=== PATIENT | male | born 1970 | race Caucasian/White ===

== ENCOUNTER 2018-04-20 22:40 | Inpatient (IN) | payer OTHER ==
--- NOTE | 2018-04-20 23:41 | PDOC ---
History of Present Illness - General Chief Complaint: Wound Stated Complaint: EDEMA Time Seen by Provider: 04/20/18 23:41 History Source: Patient - History of Present Illness Initial Comments: 04/20/18 23:43 47M with PMH of diabetes who presents to the ER with a chief complaint of worsening redness and swelling of Left foot.. Patient was recently seen in the ED on 04/17/18, 3 days ago, for right foot swelling with redness. He was worked up with labs and US duplex which were all negative and was discharged with levaquin 750mg po daily for 5 days. He denies any trauma to the area. He endorses fevers and chills. He endorses occasional nausea since the foot started bothering him. He denies vomiting chest pain shortness of breath or urinary symptoms. He endorses constipation. He denies having a foot infection. Blood sugars are usually 150s at home past few days have been higher this morning was 185 per patient. Past History - Travel Traveled outside of the country in the last 30 days: No Close contact w/someone who was outside of country & ill: No - Past Medical History Allergies/Adverse Reactions: Allergies Allergy/AdvReac Type Severity Reaction Status Date / Time No Known Allergies Allergy Verified 04/20/18 22:56 Home Medications: Ambulatory Orders Levofloxacin [Levaquin] 750 mg PO DAILY #5 tablet 04/17/18 Metformin HCl [Metformin HCl ER] 500 mg PO DAILY 04/17/18 Sitagliptin Phosphate [Januvia -] 100 mg PO DAILY@0700 04/17/18 COPD: No Diabetes: Yes HTN: Yes (off medications) - Suicide/Smoking/Psychosocial Hx Smoking History: Never smoked Have you smoked in the past 12 months: No Information on smoking cessation initiated: No Hx Alcohol Use: No Drug/Substance Use Hx: No Substance Use Type: None Review of Systems - Review of Systems Able to Perform ROS?: Yes Is the patient limited Faroese proficient: No Constitutional: Yes: Chills, Fever HEENTM: No: Symptoms Reported, See HPI, Eye Pain, Blurred Vision, Tearing, Recent change in vision, Double Vision, Cataracts, Ear Pain, Ocular Prothesis, Ear Discharge, Nose Pain, Nose Congestion, Tinnitus, Nose Bleeding, Hearing Loss , Throat Pain, Throat Swelling, Mouth Pain, Dental Problems, Difficulty Swallowing, Mouth Swelling, Other Respiratory: No: Symptoms reported, See HPI, Cough, Orthopnea, Shortness of Breath, SOB with Exertion, SOB at Rest, Stridor, Wheezing, Productive cough, Hemoptysis, Other Cardiac (ROS): No: Symptoms Reported, See HPI, Chest Pain, Edema, Irregular Heart Rate, Lightheadedness, Palpitations, Syncope, Chest Tightness, Other ABD/GI: Yes: Constipated. No: Symptoms Reported, See HPI, Abdominal Distended, Abd. Pain w/ defecation, Blood Streaked Bowels, Diarrhea, Difficulty Swallowing , Nausea, Poor Appetite, Poor Fluid Intake, Rectal Bleeding, Vomiting, Indigestion, Abdominal cramping, Tarry Stools, Other : No: Symptoms Reported, See HPI, Burning, Dysuria, Discharge, Frequency, Flank Pain, Hematuria, Incontinence, Pain, Urgency, Testicular Mass, Testicular Swelling, Lesions, Testicular Pain, Other Musculoskeletal: No: Symptoms Reported, See HPI, Back Pain, Gout, Joint Pain, Joint Swelling, Muscle Pain, Muscle Weakness, Neck Pain, Joint Stiffness, Other Neurological: No: Symptoms reported, See HPI, Headache, Numbness, Paresthesia, Pre-Existing Deficit, Seizure, Tingling, Tremors, Weakness, Unsteady Gait, Ataxia, Dizziness, Other Psychiatric: No: Anxiety, Depression, Frequent Crying, Stressors, Sleep Pattern Change, Emotional Problems, Mood Swings, Change in Appetite, Other Endocrine: No: Symptoms Reported, See HPI, Excessive Sweating, Flushing, Intolerance to Cold, Intolerance to Heat, Increased Hunger, Increased Thirst, Increased Urine, Unexplained Weight Gain, Unexplained Weight Loss, Change in Weight, Other Hematologic/Lymphatic: No: Symptoms Reported, See HPI, Anemia, Blood Clots, Easy Bleeding, Easy Bruising, Bleeding Diathesis, Lymph Node Abnormalities, Swollen Glands, Other *Physical Exam - Vital Signs Last Vital Signs Temp Pulse Resp BP Pulse Ox 100.7 F H 119 H 18 152/75 100 04/20/18 22:56 04/20/18 22:56 04/20/18 22:56 04/20/18 22:56 04/20/18 22:56 - Physical Exam General Appearance: Yes: Nourished, Appropriately Dressed. No: Apparent Distress HEENT: positive: EOMI, LUZ Neck: positive: Trachea midline, Supple Respiratory/Chest: positive: Lungs Clear, Normal Breath Sounds. negative: Chest Tender, Respiratory Distress, Accessory Muscle Use Cardiovascular: positive: Regular Rhythm, S1, S2, Tachycardia. negative: Edema , JVD, Murmur Gastrointestinal/Abdominal: positive: Soft. negative: Tender Musculoskeletal: negative: CVA Tenderness Extremity: positive: Normal Capillary Refill, Other (angry appearing redness of the plantar and dorsal part of the foot with warmth ans swelling. Blistering on the forsal part of the left foot with some blotching of dark discoloration. In the second webbed space there appears to be a break in the skin where the streking redness to the plantar and dorsal part of the foot. Pulses difficult to palpate due to swelling.) Integumentary: positive: Dry, Warm Neurologic: positive: fluid power mechanic II-XII NML intact, Fully Oriented, Alert, Normal Mood/ Affect, Motor Strength 12/29 ED Treatment Course - LABORATORY CBC & Chemistry Diagram: 04/20/18 23:59 04/20/18 23:59 Medical Decision Making - Medical Decision Making 04/21/18 00:10 47M with history of HTN and DM presents to the ED with cellulitis of the left foot. Patient has a break in the skin of the second webbed space which is likely the nidus for infection given history of diabetes and likely poor blood supply to the foot resulting in poor healing. Will do septic work up/order set as patient is septic given tachycardic and febrile with a source of infection. CBC CMP MG Coags Cardiac profile Lactic acid ESR CRP UA UCx BCx EKG CXR Foot Xray Vanco/Zosyn reassess Admit 04/21/18 01:11 Labs noted Elevated ABC count lactic acid 1.3 WNL Hyperglycemic elevated CRP Will admit for cellulitis and sepsis 04/21/18 02:13 Patient signed out to Dr. Ingram who has assumed care of the patient and will follow up all ancillary studies. *DC/Admit/Observation/Transfer Diagnosis at time of Disposition: Cellulitis Qualifiers: Site of cellulitis: extremity Site of cellulitis of extremity: lower extremity Laterality: left Qualified Code(s): L03.116 - Cellulitis of left lower limb - Discharge Dispostion Condition at time of disposition: Guarded Decision to Admit order: Yes - Referrals Referrals: Jez Armendariz MD, MD [Primary Care Provider] - - Patient Instructions - Post Discharge Activity
[2018-04-20] MEDS ORDERED: SODIUM CHLORIDE 1,000 ML IV STA ×2 (23:52)
[2018-04-20] MEDS ORDERED: morphine SULFATE 4 MG/ML VIAL IVPUSH ONE (23:53)
[2018-04-20] MEDS ORDERED: FAMOTIDINE 20 MG/50 ML IVPB 20 MG/50 ML MG IVPB ONE (23:54)
[2018-04-21] MEDS ORDERED: FAMOTIDINE 20 MG/50 ML IVPB 20 MG/50 ML MG IVPB ONE (00:01)
[2018-04-21] MEDS ORDERED: morphine SULFATE 4 MG/ML VIAL ONE (00:01)
[2018-04-21 00:13] LABS: BASO % 0.6 % (0-2.0); EOS % 0.9 % (0-4.5); HEMATOCRIT 41.8 % (35.4-49); HEMOGLOBIN 14.2 GM/dL (11.7-16.9); LYMPH % 5.1 % (8-40); MCH 27.6 pg (25.7-33.7); MCHC 33.9 g/dl (32.0-35.9); MEAN CELL VOLUME 81.5 fl (80-96); MEAN PLT VOLUME 8.1 fl (7.5-11.1); MONO % 6.8 % (3.8-10.2); NEUT % 86.6 % (42.8-82.8); PLATELET COUNT 436 K/MM3 (134-434); RBC 5.12 M/mm3 (4.00-5.60); RDW 12.9 % (11.9-15.9); WHITE BLOOD COUNT 16.5 K/mm3 (4.0-10.0)
[2018-04-21] MEDS ORDERED: ACETAMINOPHEN 1000 MG/100 ML VIAL (NON FORMULARY) IVPB ONE (00:16)
[2018-04-21] MEDS ORDERED: VANCOMYCIN 1,500 MG in DEXTROSE 5%-WATER - 500 ML IVPB ONE ×2 (00:17→14:00)
[2018-04-21] MEDS ORDERED: PIPERACILLIN/TAZOB 3.375 GM 3.375 GM in DEXTROSE 5%-WATER - 50 ML IVPB ONE ×2 (00:18→09:00)
--- NOTE | 2018-04-21 00:21 | PDOC ---
Attending Attestation - Resident Resident Name: Wisam Serra - ED Attending Attestation I have performed the following: I have examined & evaluated the patient, The case was reviewed & discussed with the resident, I agree w/resident's findings & plan, Exceptions are as noted - HPI HPI: 04/21/18 00:19 Agree with HPI - Physicial Exam PE: 04/21/18 00:20 Agree with PE - Medical Decision Making 04/21/18 00:19 Diabetic foot infection. Failed outpatient antibiotics. Febrile tachycardic. Sepsis protocol initiated we'll start on vancomycin and Zosyn and admitted hospital for further management Heart Score/ECG Review - ECG Impressions Comment:: 04/21/18 00:20 EKG performed at 1212. Demonstrates sinus tachycardia 105. GA interval 142. QRS 88. QTC 420. No ST elevations. No T-wave inversions. Interpreted by me.
[2018-04-21 00:26] LABS: INR 1.4 (0.83-1.09); PROTHROMBIN TIME (PATIENT) 15.8 SEC (9.7-13.0)
[2018-04-21 00:29] LABS: ACTIVATED PTT 37.9 SECONDS (25.2-36.5)
[2018-04-21 00:35] LABS: ALBUMIN 3.1 g/dl (3.4-5.0); ANION GAP 9 MMOL/L (8-16); BILIRUBIN,TOTAL 1.4 mg/dL (0.2-1.0); BLOOD UREA NITROGEN 12 mg/dL (7-18); CALCIUM 8.9 mg/dL (8.5-10.1); CHLORIDE 95 mmol/L (98-107); CO2 31 mmol/L (21-32); CREATININE 0.7 mg/dL (0.7-1.3); GLUCOSE,RANDOM 236 mg/dL (74-106); POTASSIUM 3.9 mmol/L (3.5-5.1); SGOT/AST 17 U/L (15-37); SGPT/ALT 23 U/L (12-78); SODIUM 135 mmol/L (136-145); TOT PROT 7.5 g/dl (6.4-8.2)
[2018-04-21 00:36] LABS: ALK PHOS 240 U/L (45-117)
[2018-04-21] MEDS ORDERED: ACETAMINOPHEN INJECTION 100 ML IVPB ONE (00:44)
[2018-04-21] MEDS ORDERED: PIPERACILLIN/TAZOB 3.375 GM 3.375 GM/50 ML BAG IVPB ONE (00:44)
--- NOTE | 2018-04-21 02:02 | HP ---
CHIEF COMPLAINT: PCP: Dr. Armendariz, covered by Dr. Chang HISTORY OF PRESENT ILLNESS: 47 yr old man with NIDDM and HTN presented to ED with worsening left foot ulcer and erythema. Initially began as erythema with intact skin on Sunday(04/14), a/w with sharp pain from dorsum at ulcer site to toes intermittently, worse when weight bearing, a/w swelling. On Sunday he had 2 episodes of nonbloody watery emesis and increasing erythema in the left foot. he was evaluated in [facility] and discharged with levaquin po daily, he took it sun// evenings. Blisters developed and today they started to break with worsening erythema and swelling. denies fevers, chest pain, palpations, diarrhea, constipation. sunday morning he developed discomfort in the epigastrium, as if something was stuck there and he couldn't swallow it down, nonradiating, improved with sitting up. 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 ER course was notable for: (1) vanc + zosyn, cxy,, bld cx, foot xry (2) (3) Recent Travel:none PAST MEDICAL HISTORY: DM, diagnosed 1 yr ago. routinely follows with optho, no diabetic retinapothy PAST SURGICAL HISTORY: denies Social History: Smoking:denies Alcohol:denies Drugs: denies Family History: father with hx of stroke in his 70's Allergies No Known Allergies Allergy (Verified 04/20/18 22:56) HOME MEDICATIONS: Home Medications Medication Instructions Recorded Levofloxacin [Levaquin] 750 mg PO DAILY #5 tablet 04/17/18 Metformin HCl [Metformin HCl ER] 500 mg PO DAILY 04/17/18 Sitagliptin Phosphate [Januvia -] 100 mg PO DAILY@0700 04/17/18 REVIEW OF SYSTEMS CONSTITUTIONAL: Absent: fever, chills, diaphoresis, generalized weakness, malaise, loss of appetite, weight change HEENT: Present: difficulty swallowing, Absent: rhinorrhea, nasal congestion, throat pain, throat swelling, mouth swelling, ear pain, eye pain, visual changes CARDIOVASCULAR: Absent: chest pain, syncope, palpitations, irregular heart rate, lightheadedness , peripheral edema RESPIRATORY: Absent: cough, shortness of breath, dyspnea with exertion, orthopnea, wheezing, stridor, hemoptysis GASTROINTESTINAL: Present: vomiting, Absent: abdominal pain, abdominal distension, nausea, diarrhea, constipation, melena, hematochezia GENITOURINARY: Absent: dysuria, frequency, urgency, hesitancy, hematuria, flank pain MUSCULOSKELETAL: Present: joint swelling; left ankle Absent: myalgia, arthralgia, back pain, neck pain SKIN: Absent: rash, itching, pallor HEMATOLOGIC/IMMUNOLOGIC: Absent: easy bleeding, easy bruising, lymphadenopathy, frequent infections ENDOCRINE: Absent: unexplained weight gain, unexplained weight loss, heat intolerance, cold intolerance NEUROLOGIC: Absent: headache, focal weakness or paresthesias, dizziness, unsteady gait, seizure, mental status changes PHYSICAL EXAMINATION Vital Signs - 24 hr 04/20/18 04/21/18 22:56 00:57 Temperature 100.7 F H 100.6 F H Pulse Rate 119 H Respiratory 18 Rate Blood Pressure 152/75 O2 Sat by Pulse 100 Oximetry (%) GENERAL: Awake, alert, and fully oriented, in no acute distress. HEAD: Normal with no signs of trauma. EYES: Pupils equal, round and reactive to light, extraocular movements intact, sclera anicteric, conjunctiva clear. No lid lag. EARS, NOSE, THROAT: oropharynx clear without exudates. Moist mucous membranes. NECK: Normal range of motion, supple without lymphadenopathy, JVD, or masses. LUNGS: Breath sounds equal, clear to auscultation bilaterally. No wheezes, and no crackles. No accessory muscle use. HEART: Regular rate and rhythm, normal S1 and S2 without murmur, rub or gallop. ABDOMEN: Soft, nontender, not distended, normoactive bowel sounds, no guarding, no rebound, no masses. No hepatomegaly or splenomegaly. MUSCULOSKELETAL: Normal range of motion at all joints. No bony deformities or tenderness. No CVA tenderness. UPPER EXTREMITIES: 2+ radial pulses, warm, well-perfused. No cyanosis. No clubbing. No peripheral edema. LOWER EXTREMITIES: 2+ DP pulses b/p, 2+ TP pulses b/l, warm, well-perfused. No calf tenderness. right leg wnl LEFT FOOT: erythema from anterior of foot extending from metatarsal joints to 2cm below ankle mostly on lateral side. between 2nd and 3rd digit is a laceration without any discharge. dorsum of foot with 2-3 serous vesicles and 2- 3 pus filled vesicles surrounded by deep purple erythema. one vesicle open with serosngunous fluid. 1st digit planter surface with callus. sensation muted in foot at planter surface and at lesion compared to right foot. NEUROLOGICAL: Cranial nerves II-XII intact. Normal speech. 5/5 in all upper ext muscle grps with extension and flexion, le right hip/knee and ankle 5/5 with extension and flexion. right hip/knee and ankle with 5/5 flexion and extension. Laboratory Results - last 24 hr 04/20/18 04/20/18 04/20/18 23:59 23:59 23:59 WBC 16.5 H RBC 5.12 Hgb 14.2 Hct 41.8 MCV 81.5 MCH 27.6 MCHC 33.9 RDW 12.9 Plt Count 436 H D MPV 8.1 D Absolute Neuts (auto) 14.3 H Neutrophils % 86.6 H Lymphocytes % 5.1 L Monocytes % 6.8 Eosinophils % 0.9 D Basophils % 0.6 D Nucleated RBC % 0 ESR PT with INR 15.80 H INR 1.40 H PTT (Actin FS) 37.9 H Sodium 135 L Potassium 3.9 Chloride 95 L Carbon Dioxide 31 Anion Gap 9 BUN 12 Creatinine 0.7 Creat Clearance w eGFR > 60 Random Glucose 236 H D Lactic Acid Calcium 8.9 Total Bilirubin 1.4 H AST 17 ALT 23 Alkaline Phosphatase 240 H D C-Reactive Protein Total Protein 7.5 Albumin 3.1 L 04/20/18 04/21/18 04/21/18 23:59 00:16 00:16 WBC RBC Hgb Hct MCV MCH MCHC RDW Plt Count MPV Absolute Neuts (auto) Neutrophils % Lymphocytes % Monocytes % Eosinophils % Basophils % Nucleated RBC % ESR 80 H PT with INR INR PTT (Actin FS) Sodium Potassium Chloride Carbon Dioxide Anion Gap BUN Creatinine Creat Clearance w eGFR Random Glucose Lactic Acid 1.3 Calcium Total Bilirubin AST ALT Alkaline Phosphatase C-Reactive Protein 25.9 H Total Protein Albumin ASSESSMENT/PLAN: 47 yr old man with NIDDM and HTN admitted for sepsis due to left foot ulcer #Sepsis due to Left foot ulcer, check u/a and chest xray to r.o any other source - bld cx pending, ESR and CRP elevated, await foot xray, but may need MRI to r/ o osteo if xray equivocal - given pus at site, likely staph, broad spec coverage for DM pt, vanc 1500 IVPB BID + zosyn q8hr - nares MRSA screen - consult ID: Dr. conteh - consult: Dr. skelton for podiatry for surgical evaluation - repeat labs to trend - recent duplex neg on Sunday for dvt, however given worsening swelling, will repeat to r/o DVT - pain control as requested, well controlled with IV tylenol in the ED - IVF #DM - NISS and BGM ACHS - A1c - discussed diabetic diet with patient, ordered RD consult for further teaching - hold home metformin and sitagliptin - lipid panel for assess for need for statin #HTN - pt is unsure of his medications, medications will need to be reconciled in the morning DVT: heparin TID DIet: diabetic, low Na diet Visit type - Emergency Visit Emergency Visit: Yes ED Registration Date: 04/21/18 Care time: The patient presented to the Emergency Department on the above date and was hospitalized for further evaluation of their emergent condition. - New Patient This patient is new to me today: Yes Date on this admission: 04/21/18 - Critical Care Critical Care patient: No Hospitalist Screening - Colonoscopy Questionnaire Colonoscopy Questionnaire: Colonoscopy Questionnaire - Patient: 50 - 75 years old and never had a screening colonoscopy: Unknown History of colon or rectal polyps, or CA: Unknown History of IBD, Crohn's disease or UC: Unknown History of abdominal radiation therapy as a child: Unknown - Relative: 1 with colon or rectal CA, or polyps at age 60 or younger: Unknown Colon or rectal CA diagnosed at age 45 or younger: Unknown Multiple relatives with colon or rectal CA: Unknown - Outcome: Screening Result: Negative Screen
--- NOTE | 2018-04-21 04:49 | PN ---
Teaching Attending Note Name of Resident: Marian Ingram ATTENDING PHYSICIAN STATEMENT I saw and evaluated the patient. Chart, data, imaging reviewed. I reviewed the resident's note and discussed the case with the resident. I agree with the resident's findings and plan as documented. SUBJECTIVE: 47M with PMH of DM diagnosed 1.5years ago returned to hospital with worsening left foot infection after failing 5 days of levaquin Rx. Reported compliance with abx. Lower ext duplex at that time was neg. Denied any trauma to foot. Patient has not had any previous foot infections. He reports subjective fevers and chills. OBJECTIVE: Last Vital Signs Temp Pulse Resp BP Pulse Ox 98.7 F 86 18 135/70 98 49 04/21/18 03:45 04/21/18 03:45 04/21/18 03:45 04/21/18 03:45 04/21/18 02:26 general- nontoxic appearing, aax3 heent- at, nc, moist mucosa neck -supple cv -s1+s2+ rrr chest clear abd- soft, nt, bs+ ext- left foot- dorsum of foot erythematous, warm, with pustules, sensation grossly intact, DP 2+ b/l Abnormal Lab Results 04/20/18 04/20/18 04/20/18 23:59 23:59 23:59 WBC 16.5 H Plt Count 436 H D Absolute Neuts (auto) 14.3 H Neutrophils % 86.6 H Lymphocytes % 5.1 L ESR PT with INR 15.80 H INR 1.40 H PTT (Actin FS) 37.9 H Sodium 135 L Chloride 95 L Random Glucose 236 H D Total Bilirubin 1.4 H Alkaline Phosphatase 240 H D C-Reactive Protein Albumin 3.1 L 04/21/18 04/21/18 00:16 00:16 WBC Plt Count Absolute Neuts (auto) Neutrophils % Lymphocytes % ESR 80 H PT with INR INR PTT (Actin FS) Sodium Chloride Random Glucose Total Bilirubin Alkaline Phosphatase C-Reactive Protein 25.9 H Albumin EKG reviewed- sinus tachycardia ASSESSMENT AND PLAN: 47yo man with sepsis secondary to cellulitis of left foot after failing outpatient levaquin therapy. Pustules on foot suggestive of staph. Lactate was WNL. Should r/o underlying OM. -admit to med/surg -IV fluid hydration -blood cultures x2 -zosyn IV -vancomycin IV -ID consult -podiatry consult -chandu PCR MRSA screen -lower ext duplex to r/o dvt -left foot Xray -MRI if foot xray is inconclusive -left elevation -morphine prn if pain #DM -strict glucose control -insulin sliding scale -basline glargine insulin -a1c -lipid panel -diabetic diet -optho and podiatry referral as outpatient -urine microalbumin # DVT ppx -heparin sc
[2018-04-21] MEDS: HEPARIN NA (PORCINE) 5,000 UNITS/ML 1ML VIAL SQ SCH ×3 (06:20→21:23)
[2018-04-21] MEDS: INSULIN SLIDING SCALE (NOVOLOG) 1 VIAL SQ SCH ×5 (06:21→21:23)
[2018-04-21] MEDS ORDERED: SODIUM CHLORIDE 1,000 ML IV SCH (06:30)
[2018-04-21 07:34] LABS: BASO % 0.7 % (0-2.0); HEMATOCRIT 35.9 % (35.4-49); HEMOGLOBIN 12.1 GM/dL (11.7-16.9); LYMPH % 6.5 % (8-40); MCH 27.5 pg (25.7-33.7); MCHC 33.7 g/dl (32.0-35.9); MEAN CELL VOLUME 81.8 fl (80-96); MEAN PLT VOLUME 7.8 fl (7.5-11.1); MONO % 9.2 % (3.8-10.2); NEUT % 82.6 % (42.8-82.8); PLATELET COUNT 325 K/MM3 (134-434); RBC 4.39 M/mm3 (4.00-5.60); RDW 12.8 % (11.9-15.9); WHITE BLOOD COUNT 16.5 K/mm3 (4.0-10.0)
[2018-04-21 07:50] LABS: ALBUMIN 2.5 g/dl (3.4-5.0); ANION GAP 11 MMOL/L (8-16); CALCIUM 8.1 mg/dL (8.5-10.1); CHLORIDE 100 mmol/L (98-107); CO2 28 mmol/L (21-32); MAGNESIUM 1.7 mg/dL (1.8-2.4); POTASSIUM 3.8 mmol/L (3.5-5.1); SODIUM 139 mmol/L (136-145)
[2018-04-21 07:57] LABS: ALK PHOS 181 U/L (45-117); BILIRUBIN,TOTAL 1.1 mg/dL (0.2-1.0); BLOOD UREA NITROGEN 9 mg/dL (7-18); CHOLESTEROL 154 mg/dL (50-200); CREATININE 0.4 mg/dL (0.7-1.3); GLUCOSE,RANDOM 205 mg/dL (74-106); HDL CHOLESTEROL 29 mg/dL (40-60); PHOSPHOROUS 2.4 mg/dL (2.5-4.9); SGOT/AST 12 U/L (15-37); SGPT/ALT 18 U/L (12-78); TOT PROT 5.9 g/dl (6.4-8.2); TRIGLYCERIDES 114 mg/dL (35-160)
--- NOTE | 2018-04-21 09:23 | PN ---
Progress Note (short form) - Note Progress Note: ID consult dictated 47 year old man with DM for last 1 1/2 years seen in ED on 04/16 for erythema/swelling of the left foot discharged on 5 days of levaquin returns with chills worsening of foot, now with blisters, worsening erythema and pain xray no fracture or subcut air, no osteo Diabetic foot infection r/o abscess, r/o osteomyelitis poorly controlled DM needs education and better DM control Problem List - Problems (1) Diabetic foot infection Code(s): E11.628 - TYPE 2 DIABETES MELLITUS WITH OTHER SKIN COMPLICATIONS; L08.9 - LOCAL INFECTION OF THE SKIN AND SUBCUTANEOUS TISSUE, UNSP (2) Diabetes Code(s): E11.9 - TYPE 2 DIABETES MELLITUS WITHOUT COMPLICATIONS
[2018-04-21] MEDS ORDERED: PIPERACILLIN/TAZOB 4.5 GM 4.5 GM in DEXTROSE 5%-WATER 100 ML IVPB SCH (10:00)
--- NOTE | 2018-04-21 10:26 | CONS ---
DATE OF CONSULTATION: 04/21/2018 REQUESTED BY: Hospitalist Service This is a 47-year-old man. He has a history of diabetes for the last [id number]. No other medical issues. He has never had any problems with his feet. He was seen in the emergency room on the with complaints of erythema and swelling of the left foot for 3 days. He had a temperature of 99. He had a duplex of his leg done that showed no DVT and some left inguinal adenopathy. He was discharged on oral Levaquin for 5 days. While home, he noted his leg got worse. He had increasing erythema, increasing swelling, increasing pain. He noted he was having chills at home. He denies any exposure to swimming pools or to lakes. He has not been swimming at home. He did try to soak his foot at home in salt water. He has not been working since this happened on the . He works as a school bus aide in the daytime and, at night, he walks a lot. 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 There is no history of any recent travel. PAST MEDICAL HISTORY: Notable for diabetes diagnosed about a year ago. No history of diabetic retinopathy, but when asked about his hemoglobin A1c, he does not seem to be aware of what this is. He is unable to tell me what his sugars have been running at home. SURGICAL HISTORY: Negative. SOCIAL HISTORY: He lives with his significant other. There have been no sick contacts. No history of cigarette, alcohol, or substance use. FAMILY HISTORY: Notable for his father with a CVA. No known drug allergies. He takes metformin and Januvia as an outpatient and he was discharged on Levaquin for 5 days on the . REVIEW OF SYSTEMS: Notable for chills. He is not sure if he has had any fever. He has had no further vomiting. He has no chest pain or abdominal pain. He notes the foot is painful when he tries to walk. PHYSICAL EXAMINATION: Vital Signs: His current temperature is 102, pulse of 100, blood pressure 121/66, respiratory rate of 18. His weight is 97.5 kg. HEENT: He is normocephalic. His eyes are anicteric. Neck: Supple. Lungs: Clear to auscultation. Heart: Regular rate and rhythm. Abdomen: Soft, nontender. Extremities: Notable for diffuse erythema of the left foot. He has an area of discoloration, which has been marked and it has not exceeded that with some erythema and some pustular lesions on the left foot extending from the 1st to the 4th toe. As well, he has some discomfort at the plantar aspect of his 2nd and 3rd toes, the base of them. LABORATORIES: Notable for a white count of 16.5, hemoglobin is 12, platelets are 325. His sedimentation rate is 80. INR is 1.4. BUN is 9, creatinine is 0.4 with a bilirubin of 1.1, alkaline phosphatase of 181. CRP is 25.9. Blood cultures have been sent and are pending. X-rays show no air; shows no evidence of any osteomyelitis. Duplex done on the is negative for DVT. SUMMARY: This is a 47-year-old man with: 1. Fairly severe diabetic foot infection. Would agree with vancomycin and Zosyn as ordered. Concerns would be for abscess and underlying osteomyelitis, given the degree of erythema and pain and swelling. Would suggest we MRI his foot. He should be seen by podiatry as well and may certainly require debridement. 2. History of diabetes, extremely poor control with a hemoglobin A1c of 11. He will require extensive diabetic education and teaching. Further recommendations to follow. Would follow vancomycin levels closely, given his diabetes. CHERYL FRIEDMAN M.D. BRITTA/[id number]
[2018-04-21] MEDS ORDERED: PIPERACILLIN/TAZOBACTAM 4.5 GM VIAL IVPB ONE ×2 (10:43→17:33)
--- NOTE | 2018-04-21 10:43 | CONSULT ---
Consult - text type - Consultation Consultation Note: Patient seen by me around 10:45am this morning for infected left foot. Presented to ER this past Sunday and was sent home on abx as per patient history. States everday got a little worse after soaking foot and presented to er. Patient states no hx of trauma. vss, Tmax 102 vsgi, +cellulitis left foot, abscess? possible portas of entry dorsum foot and plantar foot sub 1, -drainage, -mal odor, no evidence of foreign body noted on xray, wbc=16.4 at present writing, no evidence of gas on xray, crp=25.9, esr=80, + fluctuance dorsally, +mild tender plantar aspect, +gbih5w=53.0 abscess? cellulitis left foot NPO since initial eval. Patient did have breakfast this am. Scheduled for OR today as emergent case for 3pm. CBC with diff done. Ordered ultrasound stat to bedside. Reviewed xray. Tylenol 650mg PRN. Continue Ivabx as per ID. Did discuss with Dr. Patricio. Agreed foot was emergent. Consent for incision and drainage left foot to be obtained. Vascular consult Dr. Maza.
[2018-04-21] MEDS ORDERED: DEXTROSE 5%-WATER 100 ML IVPB ONE ×2 (10:44→17:33)
[2018-04-21] MEDS ORDERED: ACETAMINOPHEN 325 MG TABLET (FP) PO PRN (10:45)
[2018-04-21 11:33] LABS: BASO % 0.5 % (0-2.0); EOS % 0.5 % (0-4.5); HEMATOCRIT 34.5 % (35.4-49); HEMOGLOBIN 11.8 GM/dL (11.7-16.9); MCH 27.9 pg (25.7-33.7); MCHC 34.2 g/dl (32.0-35.9); MEAN CELL VOLUME 81.5 fl (80-96); MONO % 8.8 % (3.8-10.2); NEUT % 84.2 % (42.8-82.8); PLATELET COUNT 360 K/MM3 (134-434); RBC 4.23 M/mm3 (4.00-5.60); RDW 12.7 % (11.9-15.9); WHITE BLOOD COUNT 16.4 K/mm3 (4.0-10.0)
[2018-04-21] MEDS ORDERED: VANCOMYCIN 1,500 MG in DEXTROSE 5%-WATER - 500 ML IVPB SCH (12:00)
[2018-04-21] MEDS ORDERED: VANCOMYCIN 1,500 MG in DEXTROSE 5%-WATER - 250 ML IVPB SCH (12:00)
--- NOTE | 2018-04-21 12:54 | PN ---
Progress Note, Physician Chief Complaint: AWAKE TRANSFERRING FOR MRI NAD - Current Medication List Current Medications: Active Medications Acetaminophen (Tylenol -) 650 mg PO Q6H PRN PRN Reason: FEVER Last Admin: 04/21/18 10:54 Dose: 650 mg Heparin Sodium (Porcine) (Heparin -) 5,000 unit SQ TID [facility] Last Admin: 04/21/18 06:20 Dose: 5,000 unit Sodium Chloride (Normal Saline -) 1,000 mls @ 100 mls/hr IV ASDIR [facility] Last Admin: 04/21/18 06:59 Dose: 100 mls/hr Piperacillin Sod/Tazobactam (Sod 4.5 gm/ Dextrose) 100 mls @ 200 mls/hr IVPB Q8H-IV [facility]; Protocol Last Admin: 04/21/18 10:54 Dose: 200 mls/hr Vancomycin HCl 1,500 mg/ (Dextrose) 500 mls @ 250 mls/hr IVPB 0000,1200 [facility]; Protocol Insulin Aspart (Novolog Vial Sliding Scale -) 1 vial SQ ACHS [facility]; Protocol Last Admin: 04/21/18 06:21 Dose: 4 units - Objective Vital Signs: Vital Signs Temperature 101 F H 04/21/18 12:05 Pulse Rate 100 H 04/21/18 12:05 Respiratory Rate 20 04/21/18 12:05 Blood Pressure 132/75 04/21/18 12:05 O2 Sat by Pulse Oximetry (%) 98 04/21/18 02:26 Constitutional: Yes: No Distress Eyes: Yes: WNL HENT: Yes: WNL Neck: Yes: WNL Cardiovascular: Yes: WNL Respiratory: Yes: WNL Gastrointestinal: Yes: WNL Genitourinary: Yes: WNL Musculoskeletal: Yes: WNL Extremities: Yes: Deformity Integumentary: Yes: Pressure Ulcer, Rash, Venous Stasis Changes Wound/Incision: Yes: Dressing Dry and Intact, Unapproximated ...Motor Strength: LLE, RLE Labs: CBC, BMP 04/21/18 11:15 04/21/18 06:00 INR, PTT INR 1.40 (0.83-1.09) H 04/20/18 23:59 Problem List - Problems (1) Cellulitis Code(s): L03.90 - CELLULITIS, UNSPECIFIED Qualifiers: Site of cellulitis: extremity Site of cellulitis of extremity: lower extremity Laterality: left Qualified Code(s): L03.116 - Cellulitis of left lower limb (2) Diabetes Code(s): E11.9 - TYPE 2 DIABETES MELLITUS WITHOUT COMPLICATIONS (3) Diabetic foot infection Code(s): E11.628 - TYPE 2 DIABETES MELLITUS WITH OTHER SKIN COMPLICATIONS; L08.9 - LOCAL INFECTION OF THE SKIN AND SUBCUTANEOUS TISSUE, UNSP Assessment/Plan ABX MRI R/O OSTEOMYELITIS ID/PODIATRY CONSULT PAIN CONTROL
[2018-04-21] MEDS ORDERED: VANCOMYCIN 1,250 MG in DEXTROSE 5%-WATER - 250 ML IVPB SCH (14:00)
[2018-04-21] MEDS ORDERED: MIDAZOLAM HCL 2 MG/2 ML SINGLE DOSE VIAL ONE ×3 (14:58→15:58)
[2018-04-21] MEDS ORDERED: PROPOFOL 20 ML ONE (14:58)
[2018-04-21] MEDS ORDERED: SUCCINYLCHOLINE CHLORIDE 200 MG/10 ML VIAL ONE (14:58)
[2018-04-21] MEDS ORDERED: BUPIVACAINE HCL/PF 0.5% (5MG/ML) 10 ML VIAL ONE (15:10)
[2018-04-21 15:19] LABS: URINE APPEARANCE CLEAR; URINE BILIRUBIN NEGATIVE (<2.0 mg/dL); URINE COLOR DKYELLOW; URINE GLUCOSE (UA) 3+ (NEGATIVE); URINE KETONE 2+ (NEGATIVE); URINE LEUK ESTERASE NEGATIVE (NEGATIVE); URINE NITRITE NEGATIVE (NEGATIVE); URINE UROBILINOGEN 4.0 E.U/dl mg/dL (0.2-1.0)
[2018-04-21 15:21] LABS: URINE PROTEIN 1+ (NEGATIVE)
[2018-04-21] MEDS ORDERED: LIDOCAINE HCL/PF 2% SDV 5ML VIAL ONE ×2 (15:21→15:49)
[2018-04-21 15:24] LABS: EPI CELLS RARE /HPF (FEW); URINE MUCUS RARE
[2018-04-21] MEDS ORDERED: BUPIVACAINE HCL/PF (5 MG/ML) 30 ML VIAL IJ ONE (15:25)
[2018-04-21] MEDS ORDERED: BACITRACIN 50,000 UNITS VIAL NR ONE (15:35)
[2018-04-21] MEDS ORDERED: LIDOCAINE HCL 2% (20ML MULTI-DOSE VIAL) NR ONE (15:36)
[2018-04-21] MEDS ORDERED: KETOROLAC TROMETHAMINE 30 MG/1 ML VIAL ONE (15:49)
[2018-04-21] MEDS ORDERED: ONDANSETRON 4 MG/2 ML VIAL IVPUSH PRN (16:21)
--- NOTE | 2018-04-21 16:25 | OP ---
Operative Note - Note: Operative Date: 04/21/18 Pre-Operative Diagnosis: abscess, cellulitis, necrotizing fasciitis Operation: Incison drainage 1,2,3,4 interspaces, 2 wound cultures, antibiotic irrigation 1800cc, / Iodoform packing Findings: foul smelling purulent and dark brown/black drainage Post-Operative Diagnosis: Same as Pre-op Surgeon: Darin Maldonado Clearance Representative: Pacheco Rendon Anesthesiologist/RN PLACEMENT: [employer] Anesthesia: Local, MAC Estimated Blood Loss (mls): 50 Instrument used (Debridements only): knife, pressure irrigation Drains & Tubes with Location: 08/30 plain packing iodoform Operative Report Dictated: No
[2018-04-21] MEDS ORDERED: oxyCODONE HCL 5 MG TABLET PO ONE (16:45)
[2018-04-21] MEDS ORDERED: ACETAMINOPHEN 325 MG TABLET (FP) PO ONE (16:45)
[2018-04-21] MEDS: SODIUM CHLORIDE 1,000 ML IV SCH (17:15)
[2018-04-21] MEDS ORDERED: levoFLOXacin 750 MG TABLET PO SCH (17:15)
[2018-04-21] MEDS: PIPERACILLIN/TAZOB 4.5 GM 4.5 GM in DEXTROSE 5%-WATER 100 ML IVPB SCH (18:21)
--- NOTE | 2018-04-21 18:26 | PN ---
Progress Note (short form) - Note Progress Note: Patient had I&D today left foot. vss, tmax 98.9 dressing intact, wbc ordered post op, preop 16.4, necrotizing fasciitis cellulitis abscess Discussed with parents after case whom I met in surgical waiting area. HBO consult in place. Unable to get HBO today as no protocol for inpatient treatment at this time. Will try to get patient started in am and be an exception to current protocol for inpatient tx. Discussed with Dr. Wyatt who will try to get patient to start diving in am. Awaiting post op labs. CBR for patient. No bathroom privelages. Dressing not to be removed. IVABX as per ID. Awaiting intra op cultures and gram stain. Will follow in am.
[2018-04-21 19:57] LABS: BASO % 0.5 % (0-2.0); EOS % 0.7 % (0-4.5); HEMATOCRIT 39.3 % (35.4-49); LYMPH % 6.8 % (8-40); MCH 27.2 pg (25.7-33.7); MEAN CELL VOLUME 82.3 fl (80-96); MEAN PLT VOLUME 8.6 fl (7.5-11.1); MONO % 5.6 % (3.8-10.2); NEUT % 86.4 % (42.8-82.8); PLATELET COUNT 394 K/MM3 (134-434); RBC 4.77 M/mm3 (4.00-5.60); RDW 12.6 % (11.9-15.9); WHITE BLOOD COUNT 18.5 K/mm3 (4.0-10.0)
[2018-04-21 20:25] LABS: ANISOCYTOSIS 1+; MACROCYTOSIS 1+
[2018-04-21 20:26] LABS: PLATELET ESTIMATE ADEQUATE
--- NOTE | 2018-04-21 21:56 | EKG ---
Test Reason : Blood Pressure : / mmHG Vent. Rate : 105 BPM Atrial Rate : 105 BPM P-R Int : 142 ms QRS Dur : 088 ms QT Int : 318 ms P-R-T Axes : 055 012 039 degrees QTc Int : 420 ms SINUS TACHYCARDIA OTHERWISE NORMAL ECG NO PREVIOUS ECGS AVAILABLE Confirmed by COLE TURCIOS MD ([id number]) on 04/21/2018 9:56:37 PM Referred By: Confirmed By:COLE TURCIOS MD
[2018-04-21] MEDS ORDERED: ACETAMINOPHEN 650 MG/20.3 ML ORAL SOLUTION (CUPS) PO ONE (23:28)
[2018-04-21] MEDS: VANCOMYCIN 1,500 MG in DEXTROSE 5%-WATER - 500 ML IVPB SCH (23:54)
[2018-04-22] MEDS ORDERED: DEXTROSE 5%-WATER 100 ML IVPB ONE ×3 (00:57→17:11)
[2018-04-22] MEDS ORDERED: PIPERACILLIN/TAZOBACTAM 4.5 GM VIAL IVPB ONE ×3 (00:57→17:11)
[2018-04-22] MEDS: PIPERACILLIN/TAZOB 4.5 GM 4.5 GM in DEXTROSE 5%-WATER 100 ML IVPB SCH ×3 (02:51→17:28)
[2018-04-22] MEDS ORDERED: levoFLOXacin 750 MG TABLET PO SCH (06:00)
[2018-04-22] MEDS: sitaGLIPtin PHOSPHATE 100 MG TABLET (FP) PO SCH (06:15)
[2018-04-22] MEDS: HEPARIN NA (PORCINE) 5,000 UNITS/ML 1ML VIAL SQ SCH ×3 (06:15→22:06)
[2018-04-22] MEDS: INSULIN SLIDING SCALE (NOVOLOG) 1 VIAL SQ SCH ×4 (06:16→22:07)
[2018-04-22 07:12] LABS: HEMATOCRIT 34.2 % (35.4-49); HEMOGLOBIN 11.4 GM/dL (11.7-16.9); MCH 27.2 pg (25.7-33.7); MCHC 33.2 g/dl (32.0-35.9); MEAN CELL VOLUME 81.8 fl (80-96); MEAN PLT VOLUME 7.8 fl (7.5-11.1); PLATELET COUNT 322 K/MM3 (134-434); RBC 4.18 M/mm3 (4.00-5.60); RDW 12.7 % (11.9-15.9); WHITE BLOOD COUNT 12.8 K/mm3 (4.0-10.0)
[2018-04-22 07:31] LABS: INR 1.37 (0.83-1.09); PROTHROMBIN TIME (PATIENT) 15.5 SEC (9.7-13.0)
[2018-04-22 07:34] LABS: ACTIVATED PTT 36.1 SECONDS (25.2-36.5)
[2018-04-22 07:44] LABS: ALBUMIN 2.2 g/dl (3.4-5.0); ANION GAP 8 MMOL/L (8-16); BLOOD UREA NITROGEN 7 mg/dL (7-18); CALCIUM 8.2 mg/dL (8.5-10.1); CHLORIDE 100 mmol/L (98-107); CO2 30 mmol/L (21-32); GLUCOSE,RANDOM 230 mg/dL (74-106); POTASSIUM 3.9 mmol/L (3.5-5.1); SODIUM 138 mmol/L (136-145)
[2018-04-22 07:47] LABS: ALK PHOS 182 U/L (45-117); BILIRUBIN,TOTAL 0.9 mg/dL (0.2-1.0); CREATININE 0.4 mg/dL (0.7-1.3); SGOT/AST 21 U/L (15-37); SGPT/ALT 21 U/L (12-78); TOT PROT 5.6 g/dl (6.4-8.2)
--- NOTE | 2018-04-22 09:45 | PN ---
Progress Note (short form) - Note Progress Note: Anesthesia POD#1 S/P I and D Left Foot VSS,no N,V no pain Marisabel Hogan MD
[2018-04-22] MEDS ORDERED: PATIENT'S OWN MEDICATION (NON-FORMULARY) (Metformin Hcl [Metformin Hcl Er] 500 MG) PO SCH (10:00)
[2018-04-22] MEDS ORDERED: PATIENT'S OWN MEDICATION (NON-FORMULARY) (Levofloxacin 750 MG) PO SCH (10:00)
--- NOTE | 2018-04-22 10:43 | PN ---
Progress Note, Physician - Current Medication List Current Medications: Active Medications Fentanyl (Sublimaze Injection -) 25 mcg IVPUSH [id number] PRN PRN Reason: PAIN-PACU ORDER X 4 DOSES ONLY Heparin Sodium (Porcine) (Heparin -) 5,000 unit SQ TID [facility] Last Admin: 04/22/18 06:15 Dose: 5,000 unit Sodium Chloride (Normal Saline -) 1,000 mls @ 100 mls/hr IV ASDIR [facility] Last Admin: 04/21/18 17:15 Dose: 0 mls Vancomycin HCl 1,500 mg/ (Dextrose) 500 mls @ 250 mls/hr IVPB 0000,1200 [facility]; Protocol Last Admin: 04/21/18 23:54 Dose: 250 mls/hr Piperacillin Sod/Tazobactam (Sod 4.5 gm/ Dextrose) 100 mls @ 200 mls/hr IVPB Q8H-IV [facility]; Protocol Last Admin: 04/22/18 02:51 Dose: 200 mls/hr Insulin Aspart (Novolog Vial Sliding Scale -) 1 vial SQ ACHS [facility]; Protocol Last Admin: 04/22/18 06:16 Dose: 4 units Metformin HCl (Glucophage Xr -) 500 mg PO DAILY [facility] Ondansetron HCl (Zofran Injection) 4 mg IVPUSH Q6H PRN PRN Reason: NAUSEA AND/OR VOMITING Sitagliptin Phosphate (Januvia -) 100 mg PO DAILY@0700 [facility] Last Admin: 04/22/18 06:15 Dose: 100 mg - Objective Vital Signs: Vital Signs Temperature 98.8 F 04/22/18 06:00 Pulse Rate 72 04/22/18 06:00 Respiratory Rate 18 04/22/18 06:00 Blood Pressure 110/64 04/22/18 06:00 O2 Sat by Pulse Oximetry (%) 99 04/21/18 17:15 Labs: CBC, BMP 04/22/18 06:15 04/22/18 06:15 INR, PTT INR 1.37 (0.83-1.09) H 04/22/18 06:15 Problem List - Problems (1) Diabetic foot infection Assessment/Plan: - bld cx pending, ESR and CRP elevated, await foot xray, but may need MRI to r/ o osteo if xray equivocal - given pus at site, likely staph, broad spec coverage for DM pt, vanc 1500 IVPB BID + zosyn q8hr - nares MRSA screen - consult ID: Dr. conteh - consult: Dr. skelton for podiatry for surgical evaluation - repeat labs to trend - recent duplex neg on Sunday for dvt, however given worsening swelling, Repeat neg DVT - pain control as requested, well controlled with IV tylenol in the ED - IVF Code(s): E11.628 - TYPE 2 DIABETES MELLITUS WITH OTHER SKIN COMPLICATIONS; L08.9 - LOCAL INFECTION OF THE SKIN AND SUBCUTANEOUS TISSUE, UNSP (2) Diabetes Assessment/Plan: - NISS and BGM ACHS - A1c - discussed diabetic diet with patient, ordered RD consult for further teaching - hold home metformin and sitagliptin - lipid panel for assess for need for statin Code(s): E11.9 - TYPE 2 DIABETES MELLITUS WITHOUT COMPLICATIONS
[2018-04-22] MEDS ORDERED: PT OWN MED DRAWER 7, Y5N ONE (11:01)
--- NOTE | 2018-04-22 11:02 | PN ---
Progress Note (short form) - Note Progress Note: Vascular Surgery was consulted for an evaluation of DM foot infection Patient taken to OR yesterday and is now s/p I & D digits 1,2,3,4 interspaces, 2 wound cultures, antibiotic irrigation 1800cc, 1/4 Iodoform packing by CRISTINA Maldonado. Last Vital Signs Temp Pulse Resp BP Pulse Ox 98.8 F 72 18 110/64 99 04/22/18 06:00 04/22/18 06:00 04/22/18 06:00 04/22/18 06:00 04/21/18 17:15 CBC, BMP 04/22/18 06:15 04/22/18 06:15 Gen: alert. nad LE: RLE: unremarkable. LLE: unable to assess secondary to Podiarty note regarding NOT to take down dressing. But, according to patient's admit H&P he has 2+ DP PT bilat His specific orders/plan of care: Begin HBO today No weight bearing on affected limb No bathroom privileges. IV abx as per ID f/u intra-op cultures Dressing not to be removed. Because patient has PT/DP pulse no need for further vascular work-up at this time. All wound care to be provided by Podiatry. Re-consult surgery PRN Above discussed with Dr. aMza and agrees
[2018-04-22] MEDS: SODIUM CHLORIDE 1,000 ML IV SCH ×2 (11:12→17:19)
--- NOTE | 2018-04-22 12:52 | CONSULT ---
Consult Consult Specialty:: Endocrinology Referred by:: Dr Chang Reason for Consultation:: Hyperglycemia - History of Present Illness Chief Complaint: Lt foot infection History of Present Illness: This is a 47 yr old man h/o T2DM for about a year and half who presented to ED with worsening left foot ulcer and erythema. Initially began as erythema with intact skin on Sunday(04/14), with sharp pain from dorsum at ulcer site to toes intermittently, worse when weight bearing, a/w swelling. On Sunday he had 2 episodes of nonbloody watery emesis and increasing erythema in the left foot. He was evaluated in [facility] and discharged on oral levaquin. Blisters developed with worsening erythema and swelling so he came to ED. Pt referred for management of hyperglycemia. FS at home around 190 in the morning and 290 in the evening. On Meftormin 2000mg and Januvia 100mg daily. Has polyuria, polydipsia and nocturia. No visual symptoms. Saw Ophthalmology last year. Denies any paresthesia of feet. - History Source History Provided By: Patient, Medical Record - Past Medical History Cardio/Vascular: Yes: HTN Endocrine: Yes: Diabetes Mellitus - Alcohol/Substance Use Hx Alcohol Use: No - Smoking History Smoking history: Never smoked Have you smoked in the past 12 months: No Home Medications - Allergies Allergies/Adverse Reactions: Allergies Allergy/AdvReac Type Severity Reaction Status Date / Time No Known Allergies Allergy Verified 04/20/18 22:56 - Home Medications Home Medications: Ambulatory Orders Levofloxacin [Levaquin] 750 mg PO DAILY #5 tablet 04/17/18 Metformin HCl [Metformin HCl ER] 500 mg PO DAILY 04/17/18 Sitagliptin Phosphate [Januvia -] 100 mg PO DAILY@0700 04/17/18 Family Disease History - Family Disease History Family Disease History: Diabetes: Father Review of Systems - Review of Systems Constitutional: reports: No Symptoms Eyes: reports: No Symptoms HENT: reports: No Symptoms Neck: reports: No Symptoms Cardiovascular: reports: No Symptoms Respiratory: reports: No Symptoms Gastrointestinal: reports: No Symptoms Genitourinary: reports: Other (polyuria, nocturia) Breasts: reports: No Symptoms Reported Musculoskeletal: reports: Other (Left foot pain) Integumentary: reports: No Symptoms Neurological: reports: No Symptoms Endocrine: reports: No Symptoms Physical Exam Vital Signs: Vital Signs Temperature 98.8 F 04/22/18 06:00 Pulse Rate 72 04/22/18 06:00 Respiratory Rate 18 04/22/18 06:00 Blood Pressure 110/64 04/22/18 06:00 O2 Sat by Pulse Oximetry (%) 99 04/21/18 17:15 Constitutional: Yes: No Distress, Calm Eyes: Yes: Conjunctiva Clear, EOM Intact HENT: Yes: Atraumatic, Normocephalic Neck: Yes: Supple, Trachea Midline Cardiovascular: Yes: Regular Rate and Rhythm Respiratory: Yes: Regular, CTA Bilaterally Gastrointestinal: Yes: Normal Bowel Sounds, Soft Musculoskeletal: Yes: WNL Extremities: Yes: Other (Left foot dressing) Edema: LLE: Trace Integumentary: Yes: WNL Neurological: Yes: Alert, Oriented Labs: CBC, BMP 04/22/18 06:15 04/22/18 06:15 Imaging - Results X-ray: Report Reviewed (left foot) MRI: Report Reviewed (Left foot. Abscess, No osteo) Other: Report Reviewed (venous doppeler: No DVT) Problem List - Problems (1) Cellulitis Code(s): L03.90 - CELLULITIS, UNSPECIFIED Qualifiers: Site of cellulitis: extremity Site of cellulitis of extremity: lower extremity Laterality: left Qualified Code(s): L03.116 - Cellulitis of left lower limb (2) Diabetes Code(s): E11.9 - TYPE 2 DIABETES MELLITUS WITHOUT COMPLICATIONS (3) Diabetic foot infection Code(s): E11.628 - TYPE 2 DIABETES MELLITUS WITH OTHER SKIN COMPLICATIONS; L08.9 - LOCAL INFECTION OF THE SKIN AND SUBCUTANEOUS TISSUE, UNSP Assessment/Plan AP; Left foot Infection T2DM Uncontrolled: A1c 11.0 Nutrition consult BGM Q!ACHS Novolog SS coverage Januvia 100mg QD Metformin Add Glipizide 2.5mg BID premeals Pt doesn't want to take Insulin as outpatient. IV Abx Loca wound care Will F/u
[2018-04-22] MEDS: VANCOMYCIN 1,500 MG in DEXTROSE 5%-WATER - 500 ML IVPB SCH ×2 (13:35→23:44)
--- NOTE | 2018-04-22 14:45 | PN ---
Progress Note (short form) - Note Progress Note: POD#1 left foot. vss, tmax 98.7. Resting comfortably in hospital mild pain. dressing intact, wbc=12.8 necrotizing fasciitis cellulitis abscess Post op shoe to bedside. Bathroom privelages reinstated today. Patient having HBO tx today. Will change dressing tomorrow.
[2018-04-22 14:47] VITALS: BMI 35.7
--- NOTE | 2018-04-22 15:40 | PN ---
Progress Note (short form) - Note Progress Note: s/p OR yesterday now in hyperbaric for the next two hours unable to see the patient Vital Signs Period Temp Pulse Resp BP Sys/Muller Pulse Ox Last 24 Hr 98.7 F-101.5 F 72-95 11-20 110-136/57-72 96-99 Microbiology 04/21/18 12:00 Foot - Left Dorsum Gram Stain - Final 04/21/18 12:00 Foot - Left Dorsum Wound Culture - Preliminary NO GROWTH OBTAINED AFTER 24 HOURS INCUBATION, REINCUBATED. 04/21/18 02:47 Nares - Mrsa Screen - Right MRSA Screen - Final NO MRSA ISOLATED 04/21/18 02:47 Nares - Mrsa Screen - Left MRSA Screen - Final NO MRSA ISOLATED 04/20/18 23:59 Blood - Peripheral Venous Blood Culture - Preliminary NO GROWTH OBTAINED AFTER 24 HOURS, INCUBATION TO CONTINUE FOR 4 DAYS. 04/20/18 23:45 Blood - Peripheral Venous Blood Culture - Preliminary NO GROWTH OBTAINED AFTER 24 HOURS, INCUBATION TO CONTINUE FOR 4 DAYS. MRI abscess, no osteomyelitis a/p Diabetic foot infection-s/p drainage of abscess- necrotizing fascitis per podiatry note- will try to contact the grounds/maintenance specialist continue vanco/zosyn add clindamycin f/u cultures poorly controlled DM needs education and better DM control Problem List - Problems (1) Diabetic foot infection Code(s): E11.628 - TYPE 2 DIABETES MELLITUS WITH OTHER SKIN COMPLICATIONS; L08.9 - LOCAL INFECTION OF THE SKIN AND SUBCUTANEOUS TISSUE, UNSP (2) Diabetes Code(s): E11.9 - TYPE 2 DIABETES MELLITUS WITHOUT COMPLICATIONS
[2018-04-22] MEDS: glipiZIDE 5 MG TABLET (FP) PO SCH (17:28)
[2018-04-22] MEDS: CLINDAMYCIN 900 MG PREMIX IVPB 900 MG/50 ML BAG IVPB SCH (17:39)
[2018-04-22 21:35] LABS: BASO % 1.2 % (0-2.0); EOS % 2.2 % (0-4.5); HEMATOCRIT 33.8 % (35.4-49); HEMOGLOBIN 11.5 GM/dL (11.7-16.9); MCH 27.7 pg (25.7-33.7); MCHC 33.9 g/dl (32.0-35.9); MEAN CELL VOLUME 81.6 fl (80-96); MEAN PLT VOLUME 8.1 fl (7.5-11.1); MONO % 6.3 % (3.8-10.2); NEUT % 79.3 % (42.8-82.8); PLATELET COUNT 371 K/MM3 (134-434); RBC 4.14 M/mm3 (4.00-5.60); RDW 12.9 % (11.9-15.9); WHITE BLOOD COUNT 11.5 K/mm3 (4.0-10.0)
[2018-04-22 22:05] LABS: PLATELET ESTIMATE ADEQUATE
[2018-04-22] MEDS: ACETAMINOPHEN 325 MG TABLET (FP) PO PRN (22:07)
[2018-04-23] MEDS ORDERED: PIPERACILLIN/TAZOBACTAM 4.5 GM VIAL IVPB ONE ×2 (01:51→09:18)
[2018-04-23] MEDS ORDERED: DEXTROSE 5%-WATER 100 ML IVPB ONE (01:51)
[2018-04-23] MEDS: PIPERACILLIN/TAZOB 4.5 GM 4.5 GM in DEXTROSE 5%-WATER 100 ML IVPB SCH ×2 (01:54→09:32)
[2018-04-23] MEDS: CLINDAMYCIN 900 MG PREMIX IVPB 900 MG/50 ML BAG IVPB SCH ×2 (02:55→09:32)
[2018-04-23] MEDS: SODIUM CHLORIDE 1,000 ML IV SCH ×3 (06:14→23:19)
[2018-04-23] MEDS: sitaGLIPtin PHOSPHATE 100 MG TABLET (FP) PO SCH (06:16)
[2018-04-23] MEDS: glipiZIDE 5 MG TABLET (FP) PO SCH ×2 (06:16→16:49)
[2018-04-23] MEDS: HEPARIN NA (PORCINE) 5,000 UNITS/ML 1ML VIAL SQ SCH ×3 (06:16→21:37)
[2018-04-23] MEDS: INSULIN SLIDING SCALE (NOVOLOG) 1 VIAL SQ SCH ×4 (06:51→21:37)
--- NOTE | 2018-04-23 08:23 | PN ---
Progress Note, Physician Chief Complaint: AWAKE ALERT NO FEVER - Current Medication List Current Medications: Active Medications Acetaminophen (Tylenol -) 650 mg PO Q6H PRN PRN Reason: FEVER Last Admin: 04/22/18 22:07 Dose: 650 mg Fentanyl (Sublimaze Injection -) 25 mcg IVPUSH [id number] PRN PRN Reason: PAIN-PACU ORDER X 4 DOSES ONLY Glipizide (Glucotrol -) 2.5 mg PO BID@0700,1630 [facility] Last Admin: 04/23/18 06:16 Dose: 2.5 mg Heparin Sodium (Porcine) (Heparin -) 5,000 unit SQ TID [facility] Last Admin: 04/23/18 06:16 Dose: 5,000 unit Sodium Chloride (Normal Saline -) 1,000 mls @ 100 mls/hr IV ASDIR [facility] Last Admin: 04/23/18 06:14 Dose: 100 mls/hr Vancomycin HCl 1,500 mg/ (Dextrose) 500 mls @ 250 mls/hr IVPB 0000,1200 [facility]; Protocol Last Admin: 04/22/18 23:44 Dose: 250 mls/hr Piperacillin Sod/Tazobactam (Sod 4.5 gm/ Dextrose) 100 mls @ 200 mls/hr IVPB Q8H-IV [facility]; Protocol Last Admin: 04/23/18 01:54 Dose: 200 mls/hr Clindamycin Phosphate (Cleocin 900 Mg Premix Ivpb -) 900 mg in 50 mls @ 100 mls /hr IVPB Q8H-IV [facility]; Protocol Last Admin: 04/23/18 02:55 Dose: 100 mls/hr Insulin Aspart (Novolog Vial Sliding Scale -) 1 vial SQ TIDAC [facility]; Protocol Last Admin: 04/23/18 06:51 Dose: 6 units Insulin Aspart (Novolog Vial Sliding Scale -) 1 vial SQ HS [facility]; Protocol Last Admin: 04/22/18 22:07 Dose: Not Given Metformin HCl (Glucophage Xr -) 500 mg PO DAILY [facility] Last Admin: 04/22/18 11:12 Dose: 500 mg Ondansetron HCl (Zofran Injection) 4 mg IVPUSH Q6H PRN PRN Reason: NAUSEA AND/OR VOMITING Sitagliptin Phosphate (Januvia -) 100 mg PO DAILY@0700 [facility] Last Admin: 04/23/18 06:16 Dose: 100 mg - Objective Vital Signs: Vital Signs Temperature 98.2 F 04/23/18 06:00 Pulse Rate 70 04/23/18 06:00 Respiratory Rate 20 04/23/18 06:00 Blood Pressure 106/59 04/23/18 06:00 O2 Sat by Pulse Oximetry (%) 98 04/22/18 21:00 Constitutional: Yes: Mild Distress Eyes: Yes: WNL HENT: Yes: WNL Neck: Yes: WNL Cardiovascular: Yes: WNL Respiratory: Yes: WNL Gastrointestinal: Yes: WNL Genitourinary: Yes: WNL Musculoskeletal: Yes: Other Extremities: Yes: Deformity Edema: LLE: 1+, RLE: 1+ Peripheral Pulses WNL: Yes Integumentary: Yes: Pressure Ulcer Wound/Incision: Yes: Dressing Dry and Intact Neurological: Yes: Pre-Existing Deficit ...Motor Strength: LLE, RLE Psychiatric: Yes: WNL Labs: CBC, BMP 04/22/18 20:35 04/22/18 06:15 INR, PTT INR 1.37 (0.83-1.09) H 04/22/18 06:15 Problem List - Problems (1) Cellulitis Code(s): L03.90 - CELLULITIS, UNSPECIFIED Qualifiers: Site of cellulitis: extremity Site of cellulitis of extremity: lower extremity Laterality: left Qualified Code(s): L03.116 - Cellulitis of left lower limb (2) Diabetes Code(s): E11.9 - TYPE 2 DIABETES MELLITUS WITHOUT COMPLICATIONS (3) Diabetic foot infection Code(s): E11.628 - TYPE 2 DIABETES MELLITUS WITH OTHER SKIN COMPLICATIONS; L08.9 - LOCAL INFECTION OF THE SKIN AND SUBCUTANEOUS TISSUE, UNSP (4) Hyperglycemia due to type 2 diabetes mellitus Code(s): E11.65 - TYPE 2 DIABETES MELLITUS WITH HYPERGLYCEMIA (5) Uncontrolled diabetes mellitus Code(s): E11.65 - TYPE 2 DIABETES MELLITUS WITH HYPERGLYCEMIA Assessment/Plan IV ABX FOR FOOT INFECTION/ULCER I STRESSED IMPORTANCE OF DM CONTROL WITH MEDS/DIET ENDOCRINE CONSULT MONITOR LABS STRICT CONTROL OUTPATIENT MAY NEED SNF FOR IV ABX WITH PICC LINE
[2018-04-23] MEDS ORDERED: PT OWN MED DRAWER 7, Y5N ONE ×5 (09:17→20:42)
[2018-04-23] MEDS ORDERED: DEXTROSE 5%-WATER 200 ML IVPB ONE (09:18)
[2018-04-23] MEDS ORDERED: INSULIN (NOVOLOG) ASPART 100 UNITS/ML 10ML VIAL ONE ×2 (11:50→20:38)
[2018-04-23] MEDS: VANCOMYCIN 1,500 MG in DEXTROSE 5%-WATER - 500 ML IVPB SCH (11:54)
--- NOTE | 2018-04-23 12:37 | PN ---
Progress Note (short form) - Note Progress Note: Denies any complaints FS improving No hypos Vital Signs Period Temp Pulse Resp BP Sys/Muller Pulse Ox Last 24 Hr 98.2 F-100.2 F 70-89 18-20 104-128/58-73 98 PE: AOx3 Neck: Supple, No JVD HEENT: PERRL, EOMI Lungs: CTA CVS: S1S2 Abd: Benign EXt: left foot dressing Neuro: No focal deficit CMP Sodium 138 mmol/L (136-145) 04/22/18 06:15 Potassium 3.9 mmol/L (3.5-5.1) 04/22/18 06:15 Chloride 100 mmol/L (98-107) 04/22/18 06:15 Carbon Dioxide 30 mmol/L (21-32) 04/22/18 06:15 Anion Gap 8 MMOL/L (8-16) 04/22/18 06:15 BUN 7 mg/dL (7-18) 04/22/18 06:15 Creatinine 0.4 mg/dL (0.7-1.3) L 04/22/18 06:15 Creat Clearance w eGFR > 60 (>60) 04/22/18 06:15 POC Glucometer 152 UNITS (80-120) 04/23/18 11:48 Random Glucose 230 mg/dL (74-106) H 04/22/18 06:15 Hemoglobin A1c % 11.0 % (4.8-6.0) H 04/21/18 00:00 Lactic Acid 1.3 mmol/L (0.0-2.0) 04/20/18 23:59 Calcium 8.2 mg/dL (8.5-10.1) L 04/22/18 06:15 Phosphorus 2.4 mg/dL (2.5-4.9) L 04/21/18 06:00 Magnesium 2.0 mg/dL (1.8-2.4) 04/22/18 06:15 Total Bilirubin 0.9 mg/dL (0.2-1.0) 04/22/18 06:15 AST 21 U/L (15-37) D 04/22/18 06:15 ALT 21 U/L (12-78) 04/22/18 06:15 Alkaline Phosphatase 182 U/L (45-117) H 04/22/18 06:15 Troponin I < 0.02 ng/ml (0.00-0.05) 04/20/18 23:59 C-Reactive Protein 25.9 MG/DL (0.00-0.3) H 04/21/18 00:16 Total Protein 5.6 g/dl (6.4-8.2) L 04/22/18 06:15 Albumin 2.2 g/dl (3.4-5.0) L 04/22/18 06:15 Triglycerides 114 mg/dL (35-160) 04/21/18 06:00 Cholesterol 154 mg/dL (50-200) 04/21/18 06:00 Total LDL Cholesterol 115 mg/dL (5-100) H 04/21/18 06:00 HDL Cholesterol 29 mg/dL (40-60) L 04/21/18 06:00 Current Medications Generic Name Dose Route Start Last Admin Trade Name Freq PRN Reason Stop Dose Admin Acetaminophen 650 mg 04/22/18 19:03 04/22/18 22:07 Tylenol - PO 650 mg Q6H PRN Administration FEVER Fentanyl 25 mcg 04/21/18 16:21 Sublimaze Injection - IVPUSH [id number] PRN PAIN-PACU ORDER X 4 DOSES ONLY Glipizide 2.5 mg 04/22/18 16:30 04/23/18 06:16 Glucotrol - PO 2.5 mg BID@0700,1630 [facility] Administration Heparin Sodium (Porcine) 5,000 unit 04/21/18 22:00 04/23/18 06:16 Heparin - SQ 5,000 unit TID [facility] Administration Sodium Chloride 1,000 mls @ 100 mls/hr 04/21/18 16:54 04/23/18 06:14 Normal Saline - IV 100 mls/hr ASDIR [facility] Administration Vancomycin HCl 1,500 mg/ 500 mls @ 250 mls/hr 04/22/18 00:00 04/23/18 11:54 Dextrose IVPB 250 mls/hr 0000,1200 [facility] Administration Protocol Piperacillin Sod/Tazobactam 100 mls @ 200 mls/hr 04/21/18 18:00 04/23/18 09: 32 Sod 4.5 gm/ Dextrose IVPB 200 mls/hr Q8H-IV [facility] Administration Protocol Clindamycin Phosphate 900 mg in 50 mls @ 100 mls/hr 04/22/18 18:00 04/23/18 09:32 Cleocin 900 Mg Premix Ivpb - IVPB 100 mls/hr Q8H-IV [facility] Administration Protocol Insulin Aspart 1 vial 04/22/18 16:30 04/23/18 11:52 Novolog Vial Sliding Scale - SQ 4 units TIDAC [facility] Administration Protocol Insulin Aspart 1 vial 04/22/18 22:00 04/22/18 22:07 Novolog Vial Sliding Scale - SQ Not Given HS [facility] Protocol Metformin HCl 500 mg 04/22/18 10:00 04/23/18 09:31 Glucophage Xr - PO 500 mg DAILY [facility] Administration Ondansetron HCl 4 mg 04/21/18 16:21 Zofran Injection IVPUSH Q6H PRN NAUSEA AND/OR VOMITING Sitagliptin Phosphate 100 mg 04/22/18 07:00 04/23/18 06:16 Januvia - PO 100 mg DAILY@0700 [facility] Administration AP; Left foot Infection T2DM Uncontrolled: A1c 11.0 Improving blood sugar BGM Q!ACHS Novolog SS coverage Januvia 100mg QD Metformin Add Glipizide 2.5mg BID premeals Risk of hypoglycemia with Glipizide and need to eat within 15 to 30 minutes of taking the medication discussed. Pt verbalizes understanding. Pt doesn't want to take Insulin as outpatient. IV Abx Local wound care Will F/u Problem List - Problems (1) Cellulitis Code(s): L03.90 - CELLULITIS, UNSPECIFIED Qualifiers: Site of cellulitis: extremity Site of cellulitis of extremity: lower extremity Laterality: left Qualified Code(s): L03.116 - Cellulitis of left lower limb (2) Diabetes Code(s): E11.9 - TYPE 2 DIABETES MELLITUS WITHOUT COMPLICATIONS (3) Diabetic foot infection Code(s): E11.628 - TYPE 2 DIABETES MELLITUS WITH OTHER SKIN COMPLICATIONS; L08.9 - LOCAL INFECTION OF THE SKIN AND SUBCUTANEOUS TISSUE, UNSP
[2018-04-23] MEDS: ACETAMINOPHEN 325 MG TABLET (FP) PO PRN (16:27)
--- NOTE | 2018-04-23 16:44 | PN ---
Progress Note (short form) - Note Progress Note: pod #2 Vital Signs Period Temp Pulse Resp BP Sys/Muller Pulse Ox Last 24 Hr 98.2 F-100.2 F 70-89 18-20 104-125/58-73 98 cor-rrr lungs clear abd soft,nt ext dressing intact CBC, BMP 04/22/18 20:35 04/22/18 06:15 Microbiology 04/21/18 17:00 Foot - Left Gram Stain - Final 04/21/18 17:00 Foot - Left Wound Culture - Preliminary Strep Agalactiae Group B Staphylococcus Species Streptococcus Viridans 04/21/18 12:00 Foot - Left Dorsum Gram Stain - Final 04/21/18 12:00 Foot - Left Dorsum Wound Culture - Final NO AEROBIC OR ANAEROBIC GROWTH OBTAINED. 04/21/18 17:00 Foot - Left Gram Stain - Final 04/21/18 17:00 Foot - Left Wound Culture - Preliminary 04/20/18 23:59 Blood - Peripheral Venous Blood Culture - Preliminary NO GROWTH OBTAINED AFTER 48 HOURS, INCUBATION TO CONTINUE FOR 3 DAYS. 04/20/18 23:45 Blood - Peripheral Venous Blood Culture - Preliminary NO GROWTH OBTAINED AFTER 48 HOURS, INCUBATION TO CONTINUE FOR 3 DAYS. 04/21/18 02:47 Nares - Mrsa Screen - Right MRSA Screen - Final NO MRSA ISOLATED 04/21/18 02:47 Nares - Mrsa Screen - Left MRSA Screen - Final NO MRSA ISOLATED MRI abscess, no osteomyelitis a/p Diabetic foot infection-s/p drainage of abscess- cultures reviewed will switch to unasyn poorly controlled DM needs education and better DM control Problem List - Problems (1) Diabetic foot infection Code(s): E11.628 - TYPE 2 DIABETES MELLITUS WITH OTHER SKIN COMPLICATIONS; L08.9 - LOCAL INFECTION OF THE SKIN AND SUBCUTANEOUS TISSUE, UNSP (2) Diabetes Code(s): E11.9 - TYPE 2 DIABETES MELLITUS WITHOUT COMPLICATIONS
--- NOTE | 2018-04-23 17:43 | PN ---
Progress Note (short form) - Note Progress Note: POD#2 left foot. vss, tmax 98.5 Mild pain. dressing intact, wbc=11.5, improved cellulitis, +improved edema, +packing intact , -drainage necrotizing fasciitis cellulitis abscess Packing pulled x 4. Betadine dressingh change done. Bathroom privelages. Continue. IVABX as per ID. Will DC to home on abx as per Id once WBC stabilizes. LUANN Guadalupe present for dressing change as well as patients . will follow.
--- NOTE | 2018-04-23 18:08 | PATH ---
Surgical Pathology Report Patient Name: YODIT LENTZ Med. Rec. #: [id number] /Age/Gender: 1970 (Age: 47) / M Account: [id number] Location: [address] [place] [address]/[facility] Taken: 04/21/2018 Received: 04/22/2018 Reported: 04/23/2018 Physicians: CRISTINA Triana M.D. Specimen(s) Received DEBRIDEMENT TISSUE LEFT FOOT Clinical History Abscess and necrotizing fasciitis left foot Final Diagnosis DEBRIDED TISSUE, LEFT FOOT, EXCISION: PORTION OF FIBROADIPOSE TISSUE SHOWING SEVERE ACUTE AND CHRONIC INFLAMMATION WITH ABSCESS FORMATION. Electronically Signed Max Jeter M.D. Gross Description Received in formalin labeled "debrided tissue left foot," is a 1.3 x 0.7 x 0.2 cm aggregate of brown-thapa, necrotic soft tissue fragments. The specimen is entirely submitted in one cassette. /04/22/2018 saudi04/22/2018
[2018-04-23] MEDS: AMPICILLIN NA/SULBACTAM NA 3 GM in SODIUM CHLORIDE 100 ML IVPB SCH ×2 (20:16→21:34)
[2018-04-23 23:51] LABS: BASO % 0.6 % (0-2.0); HEMATOCRIT 32.8 % (35.4-49); HEMOGLOBIN 11.1 GM/dL (11.7-16.9); LYMPH % 11.8 % (8-40); MCH 27.3 pg (25.7-33.7); MCHC 33.8 g/dl (32.0-35.9); MEAN CELL VOLUME 80.7 fl (80-96); MEAN PLT VOLUME 7.5 fl (7.5-11.1); MONO % 7.5 % (3.8-10.2); NEUT % 77.1 % (42.8-82.8); PLATELET COUNT 375 K/MM3 (134-434); RBC 4.06 M/mm3 (4.00-5.60); RDW 13.1 % (11.9-15.9); WHITE BLOOD COUNT 8.9 K/mm3 (4.0-10.0)
[2018-04-24] MEDS: AMPICILLIN NA/SULBACTAM NA 3 GM in SODIUM CHLORIDE 100 ML IVPB SCH ×4 (02:25→21:20)
[2018-04-24] MEDS: HEPARIN NA (PORCINE) 5,000 UNITS/ML 1ML VIAL SQ SCH ×3 (06:40→21:50)
[2018-04-24] MEDS: INSULIN SLIDING SCALE (NOVOLOG) 1 VIAL SQ SCH ×5 (06:41→21:51)
[2018-04-24] MEDS: sitaGLIPtin PHOSPHATE 100 MG TABLET (FP) PO SCH (06:41)
[2018-04-24] MEDS: glipiZIDE 5 MG TABLET (FP) PO SCH ×3 (06:41→18:26)
--- NOTE | 2018-04-24 09:31 | PN ---
Progress Note (short form) - Note Progress Note: pod #3 Vital Signs Period Temp Pulse Resp BP Sys/Muller Pulse Ox Last 24 Hr 98.8 F-99.0 F 72-75 20-20 114-124/66-75 cor-rrr lungs clear abd soft,nt ext wound with minimal purulence minimal erythema no swelling CBC, BMP 04/23/18 23:30 04/22/18 06:15 Microbiology 04/20/18 23:59 Blood - Peripheral Venous Blood Culture - Preliminary NO GROWTH OBTAINED AFTER 72 HOURS, INCUBATION TO CONTINUE FOR 2 DAYS. 04/20/18 23:45 Blood - Peripheral Venous Blood Culture - Preliminary NO GROWTH OBTAINED AFTER 72 HOURS, INCUBATION TO CONTINUE FOR 2 DAYS. 04/21/18 17:00 Foot - Left Gram Stain - Final 04/21/18 17:00 Foot - Left Wound Culture - Preliminary Strep Agalactiae Group B Staphylococcus Species Streptococcus Viridans 04/21/18 12:00 Foot - Left Dorsum Gram Stain - Final 04/21/18 12:00 Foot - Left Dorsum Wound Culture - Final NO AEROBIC OR ANAEROBIC GROWTH OBTAINED. 04/21/18 17:00 Foot - Left Gram Stain - Final 04/21/18 17:00 Foot - Left Wound Culture - Preliminary 04/21/18 02:47 Nares - Mrsa Screen - Right MRSA Screen - Final NO MRSA ISOLATED 04/21/18 02:47 Nares - Mrsa Screen - Left MRSA Screen - Final NO MRSA ISOLATED MRI abscess, no osteomyelitis a/p Severe Diabetic foot infection-s/p drainage of abscess- cultures reviewed-strep currently on Unasyn would plan to switch to iv rocephin and treat for 3 to 4 weeks with iv ceftriaxone 2 g daily and po flagyl 500 tid may need oral antibiotics as followup to iv we can see him when he comes to wound care to see podiatry to help with his antibiotic management repeat esr/crp in am poorly controlled DM needs education and better DM control d/w dr skelton d/w dr del rosario Problem List - Problems (1) Diabetic foot infection Code(s): E11.628 - TYPE 2 DIABETES MELLITUS WITH OTHER SKIN COMPLICATIONS; L08.9 - LOCAL INFECTION OF THE SKIN AND SUBCUTANEOUS TISSUE, UNSP (2) Diabetes Code(s): E11.9 - TYPE 2 DIABETES MELLITUS WITHOUT COMPLICATIONS
--- NOTE | 2018-04-24 09:32 | PN ---
Progress Note (short form) - Note Progress Note: Denies any complaints FS improving No hypos Vital Signs Period Temp Pulse Resp BP Sys/Muller Pulse Ox Last 24 Hr 98.8 F-99.0 F 72-75 20-20 114-124/66-75 PE: AOx3 Neck: Supple, No JVD HEENT: PERRL, EOMI Lungs: CTA CVS: S1S2 Abd: Benign EXt: left foot dressing Neuro: No focal deficit CMP Sodium 138 mmol/L (136-145) 04/22/18 06:15 Potassium 3.9 mmol/L (3.5-5.1) 04/22/18 06:15 Chloride 100 mmol/L (98-107) 04/22/18 06:15 Carbon Dioxide 30 mmol/L (21-32) 04/22/18 06:15 Anion Gap 8 MMOL/L (8-16) 04/22/18 06:15 BUN 7 mg/dL (7-18) 04/22/18 06:15 Creatinine 0.4 mg/dL (0.7-1.3) L 04/22/18 06:15 Creat Clearance w eGFR > 60 (>60) 04/22/18 06:15 POC Glucometer 235 UNITS (80-120) 04/24/18 06:14 Random Glucose 230 mg/dL (74-106) H 04/22/18 06:15 Hemoglobin A1c % 11.0 % (4.8-6.0) H 04/21/18 00:00 Lactic Acid 1.3 mmol/L (0.0-2.0) 04/20/18 23:59 Calcium 8.2 mg/dL (8.5-10.1) L 04/22/18 06:15 Phosphorus 2.4 mg/dL (2.5-4.9) L 04/21/18 06:00 Magnesium 2.0 mg/dL (1.8-2.4) 04/22/18 06:15 Total Bilirubin 0.9 mg/dL (0.2-1.0) 04/22/18 06:15 AST 21 U/L (15-37) D 04/22/18 06:15 ALT 21 U/L (12-78) 04/22/18 06:15 Alkaline Phosphatase 182 U/L (45-117) H 04/22/18 06:15 Troponin I < 0.02 ng/ml (0.00-0.05) 04/20/18 23:59 C-Reactive Protein 25.9 MG/DL (0.00-0.3) H 04/21/18 00:16 Total Protein 5.6 g/dl (6.4-8.2) L 04/22/18 06:15 Albumin 2.2 g/dl (3.4-5.0) L 04/22/18 06:15 Triglycerides 114 mg/dL (35-160) 04/21/18 06:00 Cholesterol 154 mg/dL (50-200) 04/21/18 06:00 Total LDL Cholesterol 115 mg/dL (5-100) H 04/21/18 06:00 HDL Cholesterol 29 mg/dL (40-60) L 04/21/18 06:00 Current Medications Generic Name Dose Route Start Last Admin Trade Name Freq PRN Reason Stop Dose Admin Acetaminophen 650 mg 04/22/18 19:03 04/23/18 16:27 Tylenol - PO 650 mg Q6H PRN Administration FEVER Fentanyl 25 mcg 04/21/18 16:21 Sublimaze Injection - IVPUSH [id number] PRN PAIN-PACU ORDER X 4 DOSES ONLY Glipizide 2.5 mg 04/22/18 16:30 04/24/18 06:41 Glucotrol - PO 2.5 mg BID@0700,1630 JAGUAR Administration Heparin Sodium (Porcine) 5,000 unit 04/21/18 22:00 04/24/18 06:40 Heparin - SQ 5,000 unit TID JAGUAR Administration Sodium Chloride 1,000 mls @ 100 mls/hr 04/21/18 16:54 04/23/18 23:19 Normal Saline - IV 100 mls/hr ASDIR JAGUAR Administration Ampicillin Sodium/Sulbactam 100 mls @ 200 mls/hr 04/23/18 17:00 04/24/18 02: 25 Sodium 3 gm/ Sodium Chloride IVPB 200 mls/hr Q6H-IV JAGUAR Administration Insulin Aspart 1 vial 04/22/18 16:30 04/24/18 06:41 Novolog Vial Sliding Scale - SQ 6 units TIDAC JAGUAR Administration Protocol Insulin Aspart 1 vial 04/22/18 22:00 04/23/18 21:37 Novolog Vial Sliding Scale - SQ 2 units HS JAGUAR Administration Protocol Metformin HCl 500 mg 04/22/18 10:00 04/23/18 09:31 Glucophage Xr - PO 500 mg DAILY JAGUAR Administration Ondansetron HCl 4 mg 04/21/18 16:21 Zofran Injection IVPUSH Q6H PRN NAUSEA AND/OR VOMITING Sitagliptin Phosphate 100 mg 04/22/18 07:00 04/24/18 06:41 Januvia - PO 100 mg DAILY@0700 JAGUAR Administration AP; Left foot Infection T2DM Uncontrolled: A1c 11.0 Improving blood sugar BGM Q!ACHS Novolog SS coverage Januvia 100mg QD Metformin Increase Glipizide 5mg BID premeals Risk of hypoglycemia with Glipizide and need to eat within 15 to 30 minutes of taking the medication discussed. Pt verbalizes understanding. Pt doesn't want to take Insulin as outpatient. IV Abx Local wound care Will F/u Problem List - Problems (1) Cellulitis Code(s): L03.90 - CELLULITIS, UNSPECIFIED Qualifiers: Qualified Code(s): L03.116 - Cellulitis of left lower limb (2) Diabetes Code(s): E11.9 - TYPE 2 DIABETES MELLITUS WITHOUT COMPLICATIONS (3) Diabetic foot infection Code(s): E11.628 - TYPE 2 DIABETES MELLITUS WITH OTHER SKIN COMPLICATIONS; L08.9 - LOCAL INFECTION OF THE SKIN AND SUBCUTANEOUS TISSUE, UNSP
[2018-04-24] MEDS ORDERED: PT OWN MED DRAWER 7, Y5N ONE (09:57)
[2018-04-24] MEDS: ACETAMINOPHEN 325 MG TABLET (FP) PO PRN (11:25)
[2018-04-24] MEDS: SODIUM CHLORIDE 1,000 ML IV SCH ×2 (11:31→17:45)
--- NOTE | 2018-04-24 13:19 | PN ---
Progress Note (short form) - Note Progress Note: POD#3 left foot. vss, tmax 98.3 Mild pain. dressing intact, wbc=8.9, improved cellulitis, +improved edema, +packing intact , -drainage necrotizing fasciitis cellulitis abscess Packing pulled x 4. Betadine irrigation and dressing change done. Continue IVABX as per ID needs PICC line to go home. VNS for wound care at home. Will DC to home on abx as per Id once WBC stabilizes. Wound viewed by Dr. Patricio. will follow. 3rd HBO dive today. Plantar wound culture done today.
--- NOTE | 2018-04-24 15:40 | PN ---
Progress Note, Physician Chief Complaint: DISCUSSED WITH ID AND PODIATRY ON IV ABX WILL NEED 3 WEEKS IV ABX - Current Medication List Current Medications: Active Medications Acetaminophen (Tylenol -) 650 mg PO Q6H PRN PRN Reason: FEVER Last Admin: 04/24/18 11:25 Dose: 650 mg Fentanyl (Sublimaze Injection -) 25 mcg IVPUSH [id number] PRN PRN Reason: PAIN-PACU ORDER X 4 DOSES ONLY Glipizide (Glucotrol -) 5 mg PO BID@0700,1630 [facility] Heparin Sodium (Porcine) (Heparin -) 5,000 unit SQ TID [facility] Last Admin: 04/24/18 06:40 Dose: 5,000 unit Sodium Chloride (Normal Saline -) 1,000 mls @ 100 mls/hr IV ASDIR [facility] Last Admin: 04/24/18 11:31 Dose: 100 mls/hr Ampicillin Sodium/Sulbactam (Sodium 3 gm/ Sodium Chloride) 100 mls @ 200 mls/ hr IVPB Q6H-IV [facility] Last Admin: 04/24/18 09:59 Dose: 200 mls/hr Insulin Aspart (Novolog Vial Sliding Scale -) 1 vial SQ TIDAC [facility]; Protocol Last Admin: 04/24/18 11:29 Dose: Not Given Insulin Aspart (Novolog Vial Sliding Scale -) 1 vial SQ HS [facility]; Protocol Last Admin: 04/23/18 21:37 Dose: 2 units Metformin HCl (Glucophage Xr -) 500 mg PO DAILY [facility] Last Admin: 04/24/18 09:59 Dose: 500 mg Ondansetron HCl (Zofran Injection) 4 mg IVPUSH Q6H PRN PRN Reason: NAUSEA AND/OR VOMITING Sitagliptin Phosphate (Januvia -) 100 mg PO DAILY@0700 [facility] Last Admin: 04/24/18 06:41 Dose: 100 mg - Objective Vital Signs: Vital Signs Temperature 98.3 F 04/24/18 14:09 Pulse Rate 74 04/24/18 14:09 Respiratory Rate 24 04/24/18 14:09 Blood Pressure 144/80 04/24/18 14:09 O2 Sat by Pulse Oximetry (%) 98 04/22/18 21:00 Constitutional: Yes: Mild Distress Eyes: Yes: WNL HENT: Yes: WNL Neck: Yes: WNL Cardiovascular: Yes: WNL Respiratory: Yes: WNL Gastrointestinal: Yes: WNL Genitourinary: Yes: WNL Musculoskeletal: Yes: Muscle Weakness Extremities: Yes: Deformity Edema: Yes Peripheral Pulses WNL: Yes Integumentary: Yes: Pressure Ulcer, Venous Stasis Changes Wound/Incision: Yes: Open to air, Draining Neurological: Yes: Pre-Existing Deficit ...Motor Strength: LLE Psychiatric: Yes: WNL Labs: CBC, BMP 04/23/18 23:30 04/22/18 06:15 INR, PTT INR 1.37 (0.83-1.09) H 04/22/18 06:15 Problem List - Problems (1) Cellulitis Code(s): L03.90 - CELLULITIS, UNSPECIFIED Qualifiers: Site of cellulitis: extremity Site of cellulitis of extremity: lower extremity Laterality: left Qualified Code(s): L03.116 - Cellulitis of left lower limb (2) Diabetes Code(s): E11.9 - TYPE 2 DIABETES MELLITUS WITHOUT COMPLICATIONS (3) Diabetic foot infection Code(s): E11.628 - TYPE 2 DIABETES MELLITUS WITH OTHER SKIN COMPLICATIONS; L08.9 - LOCAL INFECTION OF THE SKIN AND SUBCUTANEOUS TISSUE, UNSP (4) Hyperglycemia due to type 2 diabetes mellitus Code(s): E11.65 - TYPE 2 DIABETES MELLITUS WITH HYPERGLYCEMIA (5) Uncontrolled diabetes mellitus Code(s): E11.65 - TYPE 2 DIABETES MELLITUS WITH HYPERGLYCEMIA Assessment/Plan IV ABX FOR FOOT INFECTION/ULCER I STRESSED IMPORTANCE OF DM CONTROL WITH MEDS/DIET ENDOCRINE CONSULT MONITOR LABS STRICT CONTROL OUTPATIENT MAY NEED SNF FOR IV ABX WITH PICC LINE
[2018-04-24] MEDS ORDERED: INSULIN (NOVOLOG) ASPART 100 UNITS/ML 10ML VIAL ONE (18:54)
[2018-04-25] MEDS: SODIUM CHLORIDE 1,000 ML IV SCH ×2 (02:08→14:33)
[2018-04-25] MEDS: AMPICILLIN NA/SULBACTAM NA 3 GM in SODIUM CHLORIDE 100 ML IVPB SCH ×4 (02:33→21:17)
[2018-04-25] MEDS: glipiZIDE 5 MG TABLET (FP) PO SCH ×2 (06:18→20:31)
[2018-04-25] MEDS: sitaGLIPtin PHOSPHATE 100 MG TABLET (FP) PO SCH (06:18)
[2018-04-25] MEDS: INSULIN SLIDING SCALE (NOVOLOG) 1 VIAL SQ SCH ×4 (06:18→22:55)
[2018-04-25] MEDS: HEPARIN NA (PORCINE) 5,000 UNITS/ML 1ML VIAL SQ SCH ×3 (06:18→21:17)
--- NOTE | 2018-04-25 07:48 | DS ---
Physical Examination Vital Signs: Vital Signs Temperature 98.7 F 04/25/18 06:00 Pulse Rate 75 04/25/18 06:00 Respiratory Rate 20 04/25/18 06:00 Blood Pressure 140/78 04/25/18 06:00 O2 Sat by Pulse Oximetry (%) 95 04/24/18 09:00 Labs: CBC, BMP 04/23/18 23:30 04/22/18 06:15 Discharge Summary Reason For Visit: CELLULITIS Current Active Problems Cellulitis (Acute) Diabetes (Acute) Diabetic foot infection (Acute) Hyperglycemia due to type 2 diabetes mellitus (Acute) Uncontrolled diabetes mellitus (Acute) Condition: Improved - Instructions Referrals: Jez Armendariz MD, [Primary Care Provider] - Disposition: [facility] F[facility] - Home Medications Comprehensive Discharge Medication List: Ambulatory Orders Metformin HCl [Metformin HCl ER] 500 mg PO DAILY 04/17/18 Sitagliptin Phosphate [Januvia -] 100 mg PO DAILY@0700 04/17/18 Acetaminophen [Tylenol .Regular Strength -] 650 mg PO Q6H PRN tablet 04/25/18 Ceftriaxone [Rocephin -] 1 gm IVPB DAILY #30 vial 04/25/18 Glipizide [Glucotrol -] 5 mg PO BID@0700,1630 tablet 04/25/18 Heparin - 5,000 unit SQ TID vial 04/25/18 Insulin Sliding Scale [Novolog Vial Sliding Scale -] 1 vial SQ HS units metroNIDAZOLE [Flagyl -] 500 mg PO TID #90 tablet 04/25/18
--- NOTE | 2018-04-25 07:51 | PN ---
Progress Note, Physician - Current Medication List Current Medications: Active Medications Acetaminophen (Tylenol -) 650 mg PO Q6H PRN PRN Reason: FEVER Last Admin: 04/24/18 11:25 Dose: 650 mg Glipizide (Glucotrol -) 5 mg PO BID@0700,1630 [facility] Last Admin: 04/25/18 06:18 Dose: 5 mg Heparin Sodium (Porcine) (Heparin -) 5,000 unit SQ TID [facility] Last Admin: 04/25/18 06:18 Dose: 5,000 unit Sodium Chloride (Normal Saline -) 1,000 mls @ 100 mls/hr IV ASDIR [facility] Last Admin: 04/25/18 02:08 Dose: 100 mls/hr Ampicillin Sodium/Sulbactam (Sodium 3 gm/ Sodium Chloride) 100 mls @ 200 mls/ hr IVPB Q6H-IV [facility] Last Admin: 04/25/18 02:33 Dose: 200 mls/hr Insulin Aspart (Novolog Vial Sliding Scale -) 1 vial SQ TIDAC [facility]; Protocol Last Admin: 04/25/18 06:18 Dose: 4 units Insulin Aspart (Novolog Vial Sliding Scale -) 1 vial SQ HS [facility]; Protocol Last Admin: 04/24/18 21:51 Dose: Not Given Metformin HCl (Glucophage Xr -) 500 mg PO DAILY [facility] Last Admin: 04/24/18 09:59 Dose: 500 mg Ondansetron HCl (Zofran Injection) 4 mg IVPUSH Q6H PRN PRN Reason: NAUSEA AND/OR VOMITING Sitagliptin Phosphate (Januvia -) 100 mg PO DAILY@0700 [facility] Last Admin: 04/25/18 06:18 Dose: 100 mg - Objective Vital Signs: Vital Signs Temperature 98.7 F 04/25/18 06:00 Pulse Rate 75 04/25/18 06:00 Respiratory Rate 20 04/25/18 06:00 Blood Pressure 140/78 04/25/18 06:00 O2 Sat by Pulse Oximetry (%) 95 04/24/18 09:00 Cardiovascular: Yes: Regular Rate and Rhythm Respiratory: Yes: Regular, CTA Bilaterally Gastrointestinal: Yes: Normal Bowel Sounds, Soft Labs: CBC, BMP 04/23/18 23:30 04/22/18 06:15 INR, PTT INR 1.37 (0.83-1.09) H 04/22/18 06:15 Problem List - Problems (1) Diabetic foot infection Assessment/Plan: - given pus at site, -OR today - consult ID: Dr. [email or web address] - consult: Dr. skelton for podiatry -noted and discussed or today - repeat labs to trend - IVF recent duplex neg on Sunday for dvt, however given worsening swelling, Repeat neg DVT - pain control as requested, Code(s): E11.628 - TYPE 2 DIABETES MELLITUS WITH OTHER SKIN COMPLICATIONS; L08.9 - LOCAL INFECTION OF THE SKIN AND SUBCUTANEOUS TISSUE, UNSP (2) Diabetes Assessment/Plan: - NISS and BGM ACHS - A1c - discussed diabetic diet with patient, ordered RD consult for further teaching - hold home metformin and sitagliptin - lipid panel for assess for need for statin Code(s): E11.9 - TYPE 2 DIABETES MELLITUS WITHOUT COMPLICATIONS
[2018-04-25] MEDS ORDERED: PT OWN MED DRAWER 7, Y5N ONE ×5 (07:58→20:40)
--- NOTE | 2018-04-25 08:04 | PN ---
Progress Note (short form) - Note Progress Note: POD#4 left foot. vss, tmax 98.7 Mild pain. dressing intact, wbc=8.9, improved cellulitis, +improved edema, +packing intact , +serosanguinous drainage left foot 1st interspace, -mal odor, necrotizing fasciitis cellulitis abscess Packing pulled x 4. Betadine irrigation and dressing change done. Continue IVABX as per ID needs PICC line to go home. VNS for wound care at home. Will DC to home on abx as per Id once drainage ceases. Dicussed with Dr. Duffy. HOLD HBO till after procedure. OR today for Incison and drainage left foot and debridement of soft tissue. Possible debridement of bone. Patient consented to procedure and fully undertsnads all risks benefits and alternatives.
[2018-04-25 08:45] LABS: BASO % 0.3 % (0-2.0); HEMATOCRIT 33.5 % (35.4-49); LYMPH % 10.1 % (8-40); MCH 27.1 pg (25.7-33.7); MCHC 32.8 g/dl (32.0-35.9); MEAN CELL VOLUME 82.6 fl (80-96); MONO % 7.2 % (3.8-10.2); NEUT % 80.4 % (42.8-82.8); PLATELET COUNT 355 K/MM3 (134-434); RBC 4.06 M/mm3 (4.00-5.60); RDW 12.9 % (11.9-15.9); WHITE BLOOD COUNT 8.1 K/mm3 (4.0-10.0)
--- NOTE | 2018-04-25 09:57 | PN ---
Progress Note (short form) - Note Progress Note: Denies any complaints For debridement today FS improving No hypos Vital Signs Period Temp Pulse Resp BP Sys/Muller Pulse Ox Last 24 Hr 97.9 F-98.8 F 66-78 18-24 127-144/58-80 98 PE: AOx3 Neck: Supple, No JVD HEENT: PERRL, EOMI Lungs: CTA CVS: S1S2 Abd: Benign EXt: left foot dressing Neuro: No focal deficit CMP Sodium 138 mmol/L (136-145) 04/22/18 06:15 Potassium 3.9 mmol/L (3.5-5.1) 04/22/18 06:15 Chloride 100 mmol/L (98-107) 04/22/18 06:15 Carbon Dioxide 30 mmol/L (21-32) 04/22/18 06:15 Anion Gap 8 MMOL/L (8-16) 04/22/18 06:15 BUN 7 mg/dL (7-18) 04/22/18 06:15 Creatinine 0.4 mg/dL (0.7-1.3) L 04/22/18 06:15 Creat Clearance w eGFR > 60 (>60) 04/22/18 06:15 POC Glucometer 194 UNITS (80-120) 04/25/18 05:49 Random Glucose 230 mg/dL (74-106) H 04/22/18 06:15 Hemoglobin A1c % 11.0 % (4.8-6.0) H 04/21/18 00:00 Lactic Acid 1.3 mmol/L (0.0-2.0) 04/20/18 23:59 Calcium 8.2 mg/dL (8.5-10.1) L 04/22/18 06:15 Phosphorus 2.4 mg/dL (2.5-4.9) L 04/21/18 06:00 Magnesium 2.0 mg/dL (1.8-2.4) 04/22/18 06:15 Total Bilirubin 0.9 mg/dL (0.2-1.0) 04/22/18 06:15 AST 21 U/L (15-37) D 04/22/18 06:15 ALT 21 U/L (12-78) 04/22/18 06:15 Alkaline Phosphatase 182 U/L (45-117) H 04/22/18 06:15 Troponin I < 0.02 ng/ml (0.00-0.05) 04/20/18 23:59 C-Reactive Protein 9.1 MG/DL (0.00-0.3) H 04/25/18 06:10 Total Protein 5.6 g/dl (6.4-8.2) L 04/22/18 06:15 Albumin 2.2 g/dl (3.4-5.0) L 04/22/18 06:15 Triglycerides 114 mg/dL (35-160) 04/21/18 06:00 Cholesterol 154 mg/dL (50-200) 04/21/18 06:00 Total LDL Cholesterol 115 mg/dL (5-100) H 04/21/18 06:00 HDL Cholesterol 29 mg/dL (40-60) L 04/21/18 06:00 Current Medications Generic Name Dose Route Start Last Admin Trade Name Freq PRN Reason Stop Dose Admin Acetaminophen 650 mg 04/22/18 19:03 04/24/18 11:25 Tylenol - PO 650 mg Q6H PRN Administration FEVER Glipizide 5 mg 04/24/18 16:30 04/25/18 06:18 Glucotrol - PO 5 mg BID@0700,1630 JAGUAR Administration Heparin Sodium (Porcine) 5,000 unit 04/21/18 22:00 04/25/18 06:18 Heparin - SQ 5,000 unit TID JAGUAR Administration Sodium Chloride 1,000 mls @ 100 mls/hr 04/21/18 16:54 04/25/18 02:08 Normal Saline - IV 100 mls/hr ASDIR JAGUAR Administration Ampicillin Sodium/Sulbactam 100 mls @ 200 mls/hr 04/23/18 17:00 04/25/18 08: 22 Sodium 3 gm/ Sodium Chloride IVPB 200 mls/hr Q6H-IV JAGUAR Administration Insulin Aspart 1 vial 04/22/18 16:30 04/25/18 06:18 Novolog Vial Sliding Scale - SQ 4 units TIDAC JAGUAR Administration Protocol Insulin Aspart 1 vial 04/22/18 22:00 04/24/18 21:51 Novolog Vial Sliding Scale - SQ Not Given HS [facility] Protocol Metformin HCl 500 mg 04/22/18 10:00 04/25/18 09:24 Glucophage Xr - PO Not Given DAILY JAGUAR Ondansetron HCl 4 mg 04/21/18 16:21 04/25/18 09:36 Zofran Injection IVPUSH 4 mg Q6H PRN Administration NAUSEA AND/OR VOMITING Sitagliptin Phosphate 100 mg 04/22/18 07:00 04/25/18 06:18 Januvia - PO 100 mg DAILY@0700 JAGUAR Administration AP; Left foot Infection T2DM Uncontrolled: A1c 11.0 For debridement today Improving blood sugar BGM QACHS Novolog SS coverage Januvia 100mg QD Metformin 500mg BID Glipizide 5mg BID premeals Risk of hypoglycemia with Glipizide and need to eat within 15 to 30 minutes of taking the medication discussed. Pt verbalizes understanding. Pt doesn't want to take Insulin as outpatient. IV Abx Local wound care Pt going for debridement. Start D5NS at 75 if FS <120 prior to call for OR. Monitor BGM perioperatively Will F/u Problem List - Problems (1) Cellulitis Code(s): L03.90 - CELLULITIS, UNSPECIFIED Qualifiers: Site of cellulitis: extremity Site of cellulitis of extremity: lower extremity Laterality: left Qualified Code(s): L03.116 - Cellulitis of left lower limb (2) Diabetes Code(s): E11.9 - TYPE 2 DIABETES MELLITUS WITHOUT COMPLICATIONS (3) Diabetic foot infection Code(s): E11.628 - TYPE 2 DIABETES MELLITUS WITH OTHER SKIN COMPLICATIONS; L08.9 - LOCAL INFECTION OF THE SKIN AND SUBCUTANEOUS TISSUE, UNSP
--- NOTE | 2018-04-25 11:03 | OP ---
DATE OF OPERATION: 04/21/2018 SURGEON: Darin Maldonado DPM [employer]ANCE ADJUSTER: Pacheco Rendon DPM PREOPERATIVE DIAGNOSES: Abscess, cellulitis, necrotizing fasciitis, left foot. POSTOPERATIVE DIAGNOSES: Abscess, cellulitis, necrotizing fasciitis, left foot. PROCEDURE: Incision and drainage of interspaces 1, 2, 3, and 4 of the left foot, 2 wound cultures, antibiotic irrigation, and 1/4-inch Iodoform packing. DESCRIPTION OF PROCEDURE: After noting all preoperative vital signs were in normal limits and surgical consent was signed and witnessed, the patient was brought to the OR, placed on the table in supine position. The foot was then prepped and draped in the usual sterile fashion. Once it was prepped and draped, attention was directed to the 1st metatarsophalangeal joint on the plantar aspect. There was noted to be a covered-over callus. This callus was inspected and followed deep into the 1st interspace. Once incised in the 1st interspace, purulent drainage came out with foul odor. Utilizing a probe, the probe was placed from plantar to dorsal and noted tracking dorsally into the interspace. This incision was followed dorsally, and the incision was created and opened. At this time, purulent drainage was noted to come from the 1st interspace. This wound was then explored and noted to be probing across the top of the foot over interspaces 2, 3, and 4 of the left foot. An incision was then created in each of those interspaces and deepened down to the abscess area. Once the abscess was identified, it was then drained. All areas were then flushed with copious amounts of sterile saline that had antibiotic irrigation added to it. Approximately 1800 mL were utilized. All wounds were inspected. All drainage was noted to be gone. All necrotic tissue that was noted was resected and sent down to Pathology. The wound was then packed with 1/4-inch Iodoform packing into each one of the interspaces. The one on the 1st interspace passed down plantarly and through the bottom of the foot. Betadine-soaked Adaptic, dry sterile gauze, and a Segundo dressing were then applied after the packing had been put into place. Patient tolerated the procedure and the anesthesia well. Patient returned to the recovery room, vital signs stable and vascular status intact. Darin Maldonado DPM /[id number]
[2018-04-25] MEDS ORDERED: BUPIVACAINE HCL/PF 0.5% (5MG/ML) 10 ML VIAL ONE (11:11)
[2018-04-25] MEDS ORDERED: LIDOCAINE HCL 2% (20ML MULTI-DOSE VIAL) NR ONE (11:11)
[2018-04-25] MEDS ORDERED: DEXAMETHASONE SOD PHOSPHATE 4 MG/1 ML VIAL ONE (11:29)
[2018-04-25] MEDS ORDERED: LIDOCAINE HCL/PF 2% SDV 5ML VIAL ONE (11:29)
[2018-04-25] MEDS ORDERED: MIDAZOLAM HCL 2 MG/2 ML SINGLE DOSE VIAL ONE (11:29)
[2018-04-25] MEDS ORDERED: PROPOFOL 20 ML ONE (11:29)
[2018-04-25] MEDS ORDERED: BUPIVACAINE HCL/PF (5 MG/ML) 30 ML VIAL IJ ONE (12:27)
[2018-04-25] MEDS ORDERED: LIDOCAINE HCL 1%, 10 MG/ML (20ML VIAL) PNB ONE (12:27)
[2018-04-25] MEDS ORDERED: BACITRACIN 50,000 UNITS VIAL TP ONE (12:57)
[2018-04-25] MEDS ORDERED: ONDANSETRON 4 MG/2 ML VIAL IVPUSH PRN (13:37)
[2018-04-25] MEDS ORDERED: ACETAMINOPHEN 325 MG TABLET (FP) PO PRN (13:37)
--- NOTE | 2018-04-25 14:06 | OP ---
DATE OF OPERATION: 04/24/2018 SURGEON: Darin Maldonado DPM SACK LIFTER: Pacheco Rendon DPM. PREPROCEDURAL DIAGNOSIS: Necrotizing fasciitis of left foot. POSTPROCEDURAL DIAGNOSIS: Necrotizing fasciitis of left foot. PROCEDURE: Incision and drainage of left foot with sharp excisional debridement of left foot. PATHOLOGY: Left foot soft tissue pathology. HEMOSTASIS: None. ESTIMATED BLOOD LOSS: 50 mL. MATERIALS: Iodoform packing. STRIPS: Xeroform gauze, 4 x 4 gauze, ABD pads, Kerlix, and GRETA bandage. ANESTHESIA: General anesthesia. INJECTIONS: A 1:1 mixture of 1% lidocaine plain and 0.5% Marcaine plain preoperative. PROCEDURE: The patient was both verbally and visually identified in the preoperative holding area. Informed consent was obtained and placed in the chart. All risks, benefits, and complications were explained to the patient to their satisfaction. The patient was then brought to the operating room and was placed on the operating table in the supine position. After general anesthesia a local infiltration block utilizing 20 mL of a 1:1 mixture of 1% lidocaine plain and 0.25% Marcaine plain was administered to the left foot. The left foot was then prepped and draped in the usual aseptic fashion. Attention was directed to the dorsum of the left foot where a previous fasciotomy was noted at the 1st interspace, 2nd interspace, 3rd interspace, 4th interspace as well as plantar aspect of the 1st interspace. At the fasciotomy site there was pus coming out from the dorsal aspect of the fasciotomy sites. An incision was extended distally and plantarly to all fasciotomy sites dorsally especially the first interspace incision was extended to distally and plantarly to connect the plantar incision to the plantar fasciotomy site. Upon careful inspection of the fasciotomy site, it was noted that there was a pus pocket around the 4th interspace, 3rd interspace, and 2nd interspace fasciotomy sites. The pus pocket was opened up with curved Metzenbaums. At this time the pus was expressed manually and irrigated with 50,000 units of bacitracin infused pulsatile lavage. The 1st interspace was opened up and there was noted necrotic tissue and fibrotic tissue at the lateral aspect of that fasciotomy site more plantarly. Sharp excision with debridement was performed utilizing a number 15 blade to remove all necrotic and fibrotic tissue at the plantar and lateral aspect of the first interspace fasciotomy site. It was noted that necrotic fibrotic tissue was removed totally and again 50,000 units of bacitracin infused pulsatile lavage was utilized to flush all of the fasciotomy sites. The wound was now packed with Iodoform packing strips then covered with Xeroform gauze and a light compressive dressing consisting of 4 x 4 gauze, ABD pads, Kerlix and an GRETA bandage. The patient tolerated the procedure and anesthesia well and left the operating room to the recovery room in good condition with the vital signs stable, vascular status intact, and capillary filling time less than 3 seconds to all digits of the left foot. CRISTINA Triana/[id number]
[2018-04-25] MEDS ORDERED: ONDANSETRON 4 MG/2 ML VIAL IVPB PRN (17:31)
[2018-04-25] MEDS ORDERED: INSULIN (NOVOLOG) ASPART 100 UNITS/ML 10ML VIAL ONE (20:27)
[2018-04-26] MEDS ORDERED: PT OWN MED DRAWER 7, Y5N ONE ×6 (01:56→23:55)
[2018-04-26] MEDS: AMPICILLIN NA/SULBACTAM NA 3 GM in SODIUM CHLORIDE 100 ML IVPB SCH ×4 (02:17→21:51)
[2018-04-26] MEDS: INSULIN SLIDING SCALE (NOVOLOG) 1 VIAL SQ SCH ×4 (06:35→21:52)
[2018-04-26] MEDS: HEPARIN NA (PORCINE) 5,000 UNITS/ML 1ML VIAL SQ SCH ×3 (06:36→21:51)
[2018-04-26] MEDS: sitaGLIPtin PHOSPHATE 100 MG TABLET (FP) PO SCH (06:36)
[2018-04-26] MEDS: glipiZIDE 5 MG TABLET (FP) PO SCH ×2 (06:36→18:45)
[2018-04-26] MEDS: SODIUM CHLORIDE 1,000 ML IV SCH ×2 (07:02→18:04)
[2018-04-26] MEDS ORDERED: INSULIN (NOVOLOG) ASPART 100 UNITS/ML 10ML VIAL ONE ×3 (07:32→21:45)
--- NOTE | 2018-04-26 08:14 | PN ---
Progress Note (short form) - Note Progress Note: Post op day#1.S/P Left foot debridment under MAC uneventful.Patient stable.No any anesthesia related problem.Patient DC from the anesthesia care.
--- NOTE | 2018-04-26 08:22 | PN ---
Progress Note, Physician - Current Medication List Current Medications: Active Medications Acetaminophen (Tylenol -) 650 mg PO Q6H PRN PRN Reason: FEVER Glipizide (Glucotrol -) 5 mg PO BID@0700,1630 [facility] Last Admin: 04/26/18 06:36 Dose: 5 mg Heparin Sodium (Porcine) (Heparin -) 5,000 unit SQ TID [facility] Last Admin: 04/26/18 06:36 Dose: 5,000 unit Ampicillin Sodium/Sulbactam (Sodium 3 gm/ Sodium Chloride) 100 mls @ 200 mls/ hr IVPB Q6H-IV [facility] Last Admin: 04/26/18 02:17 Dose: 200 mls/hr Sodium Chloride (Normal Saline -) 1,000 mls @ 100 mls/hr IV ASDIR [facility] Last Admin: 04/26/18 07:02 Dose: 100 mls/hr Insulin Aspart (Novolog Vial Sliding Scale -) 1 vial SQ TIDAC [facility]; Protocol Last Admin: 04/26/18 06:35 Dose: 4 units Insulin Aspart (Novolog Vial Sliding Scale -) 1 vial SQ HS [facility]; Protocol Last Admin: 04/25/18 22:55 Dose: Not Given Ondansetron HCl (Zofran Injection) 4 mg IVPB Q6H PRN PRN Reason: NAUSEA AND/OR VOMITING Sitagliptin Phosphate (Januvia -) 100 mg PO DAILY@0700 [facility] Last Admin: 04/26/18 06:36 Dose: 100 mg - Objective Vital Signs: Vital Signs Temperature 98.3 F 04/26/18 05:00 Pulse Rate 61 04/26/18 05:00 Respiratory Rate 16 04/26/18 05:00 Blood Pressure 122/68 04/26/18 05:00 O2 Sat by Pulse Oximetry (%) 97 04/25/18 21:00 Cardiovascular: Yes: S1, S2 Respiratory: Yes: Regular, CTA Bilaterally Gastrointestinal: Yes: Normal Bowel Sounds, Soft. No: Tenderness Labs: CBC, BMP 04/25/18 06:18 04/22/18 06:15 INR, PTT INR 1.37 (0.83-1.09) H 04/22/18 06:15 Problem List - Problems (1) Diabetic foot infection Assessment/Plan: - given pus at site, -OR 04/25 - consult ID: Dr. [email or web address] - consult: Dr. skelton for podiatry -noted and discussed --WAS TAKEN TO OR - repeat labs to trend - IVF recent duplex neg on Sunday for dvt, however given worsening swelling, Repeat neg DVT - pain control as requested, Code(s): E11.628 - TYPE 2 DIABETES MELLITUS WITH OTHER SKIN COMPLICATIONS; L08.9 - LOCAL INFECTION OF THE SKIN AND SUBCUTANEOUS TISSUE, UNSP (2) Diabetes Assessment/Plan: - NISS and BGM ACHS - A1c - discussed diabetic diet with patient, ordered RD consult for further teaching - hold home metformin and sitagliptin - lipid panel for assess for need for statin Code(s): E11.9 - TYPE 2 DIABETES MELLITUS WITHOUT COMPLICATIONS (3) Nausea & vomiting Assessment/Plan: -PPI LABS MONITOR Code(s): R11.2 - NAUSEA WITH VOMITING, UNSPECIFIED
[2018-04-26] MEDS: PANTOPRAZOLE SODIUM 40 MG VIAL IVPUSH SCH ×2 (09:33→21:51)
--- NOTE | 2018-04-26 09:46 | PN ---
Progress Note (short form) - Note Progress Note: C/o epigastric pain, nausea S/P debridement yesterday FS improving No hypos Vital Signs Period Temp Pulse Resp BP Sys/Muller Pulse Ox Last 24 Hr 98.1 F-98.9 F 7-70 14-22 122-154/66-79 94-97 PE: AOx3 Neck: Supple, No JVD HEENT: PERRL, EOMI Lungs: CTA CVS: S1S2 Abd: Benign EXt: left foot dressing Neuro: No focal deficit CMP Sodium 138 mmol/L (136-145) 04/22/18 06:15 Potassium 3.9 mmol/L (3.5-5.1) 04/22/18 06:15 Chloride 100 mmol/L (98-107) 04/22/18 06:15 Carbon Dioxide 30 mmol/L (21-32) 04/22/18 06:15 Anion Gap 8 MMOL/L (8-16) 04/22/18 06:15 BUN 7 mg/dL (7-18) 04/22/18 06:15 Creatinine 0.4 mg/dL (0.7-1.3) L 04/22/18 06:15 Creat Clearance w eGFR > 60 (>60) 04/22/18 06:15 POC Glucometer 158 UNITS (80-120) 04/26/18 06:29 Random Glucose 230 mg/dL (74-106) H 04/22/18 06:15 Hemoglobin A1c % 11.0 % (4.8-6.0) H 04/21/18 00:00 Lactic Acid 1.3 mmol/L (0.0-2.0) 04/20/18 23:59 Calcium 8.2 mg/dL (8.5-10.1) L 04/22/18 06:15 Phosphorus 2.4 mg/dL (2.5-4.9) L 04/21/18 06:00 Magnesium 2.0 mg/dL (1.8-2.4) 04/22/18 06:15 Total Bilirubin 0.9 mg/dL (0.2-1.0) 04/22/18 06:15 AST 21 U/L (15-37) D 04/22/18 06:15 ALT 21 U/L (12-78) 04/22/18 06:15 Alkaline Phosphatase 182 U/L (45-117) H 04/22/18 06:15 Troponin I < 0.02 ng/ml (0.00-0.05) 04/20/18 23:59 C-Reactive Protein 9.1 MG/DL (0.00-0.3) H 04/25/18 06:10 Total Protein 5.6 g/dl (6.4-8.2) L 04/22/18 06:15 Albumin 2.2 g/dl (3.4-5.0) L 04/22/18 06:15 Triglycerides 114 mg/dL (35-160) 04/21/18 06:00 Cholesterol 154 mg/dL (50-200) 04/21/18 06:00 Total LDL Cholesterol 115 mg/dL (5-100) H 04/21/18 06:00 HDL Cholesterol 29 mg/dL (40-60) L 04/21/18 06:00 Current Medications Generic Name Dose Route Start Last Admin Trade Name Freq PRN Reason Stop Dose Admin Acetaminophen 650 mg 04/25/18 13:37 Tylenol - PO Q6H PRN FEVER Glipizide 5 mg 04/25/18 16:30 04/26/18 06:36 Glucotrol - PO 5 mg BID@0700,1630 [facility] Administration Heparin Sodium (Porcine) 5,000 unit 04/25/18 14:00 04/26/18 06:36 Heparin - SQ 5,000 unit TID [facility] Administration Ampicillin Sodium/Sulbactam 100 mls @ 200 mls/hr 04/25/18 15:00 04/26/18 09: 34 Sodium 3 gm/ Sodium Chloride IVPB 200 mls/hr Q6H-IV [facility] Administration Sodium Chloride 1,000 mls @ 100 mls/hr 04/25/18 13:37 04/26/18 07:02 Normal Saline - IV 100 mls/hr ASDIR [facility] Administration Insulin Aspart 1 vial 04/25/18 16:30 04/26/18 06:35 Novolog Vial Sliding Scale - SQ 4 units TIDAC [facility] Administration Protocol Insulin Aspart 1 vial 04/25/18 22:00 04/25/18 22:55 Novolog Vial Sliding Scale - SQ Not Given HS [facility] Protocol Ondansetron HCl 4 mg 04/25/18 17:31 Zofran Injection IVPB Q6H PRN NAUSEA AND/OR VOMITING Pantoprazole Sodium 40 mg 04/26/18 10:00 04/26/18 09:33 Protonix Iv IVPUSH 40 mg BID [facility] Administration Sitagliptin Phosphate 100 mg 04/26/18 07:00 04/26/18 06:36 Januvia - PO 100 mg DAILY@0700 [facility] Administration AP; Left foot Infection s/P debridement T2DM Uncontrolled: A1c 11.0 Improving blood sugar BGM QACHS Novolog SS coverage Januvia 100mg QD Metformin 500mg BID Glipizide 5mg BID premeals Risk of hypoglycemia with Glipizide and need to eat within 15 to 30 minutes of taking the medication discussed. Pt verbalizes understanding. Pt doesn't want to take Insulin as outpatient. IV Abx Local wound care Will F/u Problem List - Problems (1) Cellulitis Code(s): L03.90 - CELLULITIS, UNSPECIFIED Qualifiers: Site of cellulitis: extremity Site of cellulitis of extremity: lower extremity Laterality: left Qualified Code(s): L03.116 - Cellulitis of left lower limb (2) Diabetes Code(s): E11.9 - TYPE 2 DIABETES MELLITUS WITHOUT COMPLICATIONS (3) Diabetic foot infection Code(s): E11.628 - TYPE 2 DIABETES MELLITUS WITH OTHER SKIN COMPLICATIONS; L08.9 - LOCAL INFECTION OF THE SKIN AND SUBCUTANEOUS TISSUE, UNSP
[2018-04-26 12:58] LABS: BASO % 0.7 % (0-2.0); EOS % 1.5 % (0-4.5); HEMATOCRIT 33.6 % (35.4-49); HEMOGLOBIN 11.2 GM/dL (11.7-16.9); LYMPH % 13.5 % (8-40); MCH 27.2 pg (25.7-33.7); MCHC 33.2 g/dl (32.0-35.9); MEAN CELL VOLUME 81.8 fl (80-96); MEAN PLT VOLUME 7.6 fl (7.5-11.1); MONO % 6.6 % (3.8-10.2); NEUT % 77.7 % (42.8-82.8); PLATELET COUNT 398 K/MM3 (134-434); RBC 4.11 M/mm3 (4.00-5.60); RDW 13.3 % (11.9-15.9)
[2018-04-26 13:17] LABS: ALBUMIN 2.4 g/dl (3.4-5.0); ANION GAP 6 MMOL/L (8-16); BLOOD UREA NITROGEN 9 mg/dL (7-18); CALCIUM 8.4 mg/dL (8.5-10.1); CHLORIDE 108 mmol/L (98-107); CO2 32 mmol/L (21-32); GLUCOSE,RANDOM 124 mg/dL (74-106); LIPASE 103 U/L (73-393); POTASSIUM 3.3 mmol/L (3.5-5.1); SODIUM 146 mmol/L (136-145)
[2018-04-26 13:25] LABS: ALK PHOS 177 U/L (45-117); AMYLASE 31 U/L (25-115); BILIRUBIN,TOTAL 0.4 mg/dL (0.2-1.0); CREATININE 0.5 mg/dL (0.7-1.3); SGOT/AST 28 U/L (15-37); SGPT/ALT 32 U/L (12-78); TOT PROT 6.1 g/dl (6.4-8.2)
--- NOTE | 2018-04-26 13:30 | PATH ---
Surgical Pathology Report Patient Name: YODIT LENTZ Med. Rec. #: [id number] /Age/Gender: 1970 (Age: 47) / M Account: [id number] Location: [address] [place] [address]/[facility] Taken: 04/25/2018 Received: 04/25/2018 Reported: 04/26/2018 Physicians: CRISTINA Triana M.D. Specimen(s) Received NECROTIC TISSUE LEFT FOOT Clinical History Cellulitis left foot Final Diagnosis SOFT TISSUE, LEFT FOOT, DEBRIDEMENT: GANGRENOUS NECROSIS. Electronically Signed Julio Patrick M.D. Gross Description Received in formalin labeled "left foot necrotic tissue," is a 2.6 x 2.0 x 0.3 cm aggregate of [place]ore[place] necrotic soft tissue. A patient support representative portion is submitted in one cassette. /04/25/2018 saudi/04/25/2018
--- NOTE | 2018-04-26 13:55 | OP ---
ADDENDUM DATE OF OPERATION: DATE OF DICTATION: 04/25/2018 COMMENT: A 47-year-old male, the procedure was a left foot incision and drainage and debridement of the left foot. [place] previous job [place] was [id number]. Addendum in the section of pulse lavage which was 50,000 units of bacitracin infused, please mention that approximately 2000 mL was utilized. CRISTINA Triana/[id number]
[2018-04-26] MEDS: KCL 10 MEQ IVPB 10 MEQ/100 ML INFUS.BAG IVPB SCH (18:45)
--- NOTE | 2018-04-26 20:14 | PN ---
Progress Note (short form) - Note Progress Note: POD#1 left foot. vss, tmax 98.2 Mild pain. Patient seen aroun 12noon today. dressing intact, wbc=9.0 -drainage +improved edema, +packing intact, -mal odor, reviewed latest culture normal post op Packing pulled x 4. Betadine irrigation and dressing change done packing replaced. Continue IVABX as per ID needs PICC line to go home. VNS for wound care at home. Will DC to home on abx as per Id drainage has ceased. Dicussed with Dr. Chang. Patient had HBO yesterday. present during bandage change.
[2018-04-27] MEDS: KCL 10 MEQ IVPB 10 MEQ/100 ML INFUS.BAG IVPB SCH (00:23)
[2018-04-27] MEDS: SODIUM CHLORIDE 1,000 ML IV SCH ×2 (00:46→15:20)
[2018-04-27] MEDS ORDERED: PT OWN MED DRAWER 7, Y5N ONE ×4 (03:29→20:22)
[2018-04-27] MEDS: AMPICILLIN NA/SULBACTAM NA 3 GM in SODIUM CHLORIDE 100 ML IVPB SCH ×4 (03:35→21:02)
[2018-04-27] MEDS: INSULIN SLIDING SCALE (NOVOLOG) 1 VIAL SQ SCH ×4 (06:29→21:49)
[2018-04-27] MEDS: glipiZIDE 5 MG TABLET (FP) PO SCH ×2 (06:30→16:22)
[2018-04-27] MEDS: sitaGLIPtin PHOSPHATE 100 MG TABLET (FP) PO SCH (06:30)
[2018-04-27] MEDS: HEPARIN NA (PORCINE) 5,000 UNITS/ML 1ML VIAL SQ SCH ×3 (06:30→21:50)
--- NOTE | 2018-04-27 09:31 | PN ---
Progress Note, Physician Chief Complaint: Diabetic foot ulcer History of Present Illness: nad on IV abx Seen by Podiatry and ID - Current Medication List Current Medications: Active Medications Acetaminophen (Tylenol -) 650 mg PO Q6H PRN PRN Reason: FEVER Atorvastatin Calcium (Lipitor -) 20 mg PO HS [facility] Glipizide (Glucotrol -) 5 mg PO BID@0700,1630 [facility] Last Admin: 04/27/18 06:30 Dose: 5 mg Heparin Sodium (Porcine) (Heparin -) 5,000 unit SQ TID [facility] Last Admin: 04/27/18 06:30 Dose: 5,000 unit Ampicillin Sodium/Sulbactam (Sodium 3 gm/ Sodium Chloride) 100 mls @ 200 mls/ hr IVPB Q6H-IV [facility] Last Admin: 04/27/18 08:48 Dose: 200 mls/hr Sodium Chloride (Normal Saline -) 1,000 mls @ 100 mls/hr IV ASDIR [facility] Last Admin: 04/27/18 00:46 Dose: 100 mls/hr Insulin Aspart (Novolog Vial Sliding Scale -) 1 vial SQ TIDAC [facility]; Protocol Last Admin: 04/27/18 06:29 Dose: Not Given Insulin Aspart (Novolog Vial Sliding Scale -) 1 vial SQ HS [facility]; Protocol Last Admin: 04/26/18 21:52 Dose: Not Given Ondansetron HCl (Zofran Injection) 4 mg IVPB Q6H PRN PRN Reason: NAUSEA AND/OR VOMITING Pantoprazole Sodium (Protonix Iv) 40 mg IVPUSH BID [facility] Last Admin: 04/26/18 21:51 Dose: 40 mg Sitagliptin Phosphate (Januvia -) 100 mg PO DAILY@0700 [facility] Last Admin: 04/27/18 06:30 Dose: 100 mg - Objective Vital Signs: Vital Signs Temperature 98.2 F 04/27/18 05:38 Pulse Rate 54 L 04/27/18 05:38 Respiratory Rate 16 04/27/18 05:38 Blood Pressure 133/75 04/27/18 05:38 O2 Sat by Pulse Oximetry (%) 96 04/26/18 20:16 Constitutional: Yes: Well Nourished, No Distress, Calm Cardiovascular: Yes: Regular Rate and Rhythm Respiratory: Yes: Regular Gastrointestinal: Yes: Normal Bowel Sounds, Soft Wound/Incision: Yes: Dressing Dry and Intact Neurological: Yes: Alert, Oriented Psychiatric: Yes: Alert, Oriented Labs: CBC, BMP 04/26/18 12:30 04/26/18 12:30 INR, PTT INR 1.37 (0.83-1.09) H 04/22/18 06:15 Problem List - Problems (1) Diabetic foot infection Assessment/Plan: -had left foot I&D 04/25 -LE MRI- negative for osteomyelitis -Wound culture: Microbiology 04/25/18 14:45 Foot - Left Gram Stain - Final 04/24/18 09:37 Cellulitis Gram Stain - Final 04/24/18 09:37 Cellulitis Wound Culture - Preliminary Group D Strep Or Entero Coccus Beta Hemolytic Strep Pending Organism Staphylococcus Coagulase Neg Alpha Hemolytic Streptococcus 04/20/18 23:59 Blood - Peripheral Venous Blood Culture - Final NO GROWTH AFTER 5 DAYS INCUBATION 04/20/18 23:45 Blood - Peripheral Venous Blood Culture - Final NO GROWTH AFTER 5 DAYS INCUBATION 04/21/18 17:00 Foot - Left Gram Stain - Final 04/21/18 17:00 Foot - Left Wound Culture - Final Strep Agalactiae Group B Staphylococcus Aureus Streptococcus Viridans 04/21/18 17:00 Foot - Left Gram Stain - Final 04/21/18 17:00 Foot - Left Wound Culture - Final 04/21/18 12:00 Foot - Left Dorsum Gram Stain - Final 04/21/18 12:00 Foot - Left Dorsum Wound Culture - Final NO AEROBIC OR ANAEROBIC GROWTH OBTAINED. 04/21/18 02:47 Nares - Mrsa Screen - Right MRSA Screen - Final NO MRSA ISOLATED 04/21/18 02:47 Nares - Mrsa Screen - Left MRSA Screen - Final NO MRSA ISOLATED -Seen by Podiatry and ID -IV abx -Needs PICC line and ID to decide on abx upon discharge Code(s): E11.628 - TYPE 2 DIABETES MELLITUS WITH OTHER SKIN COMPLICATIONS; L08.9 - LOCAL INFECTION OF THE SKIN AND SUBCUTANEOUS TISSUE, UNSP (2) Uncontrolled diabetes mellitus Assessment/Plan: -A1c at 11.0 -Seen by endocrinology -BGM AC HS -Diabetic diet -Insulin:novolog sliding scale -Januvia + Glipizide -RD consult Code(s): E11.65 - TYPE 2 DIABETES MELLITUS WITH HYPERGLYCEMIA (3) Hypokalemia Assessment/Plan: -repeat labs pending today -Received KCl 30 meq yesterday Code(s): E87.6 - HYPOKALEMIA Assessment/Plan see problem list
[2018-04-27] MEDS: PANTOPRAZOLE SODIUM 40 MG VIAL IVPUSH SCH ×2 (09:57→21:50)
[2018-04-27 10:26] LABS: BASO % 0.6 % (0-2.0); EOS % 1.9 % (0-4.5); HEMATOCRIT 33.6 % (35.4-49); HEMOGLOBIN 11.3 GM/dL (11.7-16.9); LYMPH % 14.7 % (8-40); MCH 27.7 pg (25.7-33.7); MCHC 33.5 g/dl (32.0-35.9); MEAN CELL VOLUME 82.6 fl (80-96); MEAN PLT VOLUME 7.4 fl (7.5-11.1); MONO % 7.3 % (3.8-10.2); NEUT % 75.5 % (42.8-82.8); PLATELET COUNT 365 K/MM3 (134-434); RBC 4.07 M/mm3 (4.00-5.60); RDW 13.2 % (11.9-15.9); WHITE BLOOD COUNT 6.7 K/mm3 (4.0-10.0)
[2018-04-27 10:43] LABS: ALBUMIN 2.4 g/dl (3.4-5.0); ANION GAP 7 MMOL/L (8-16); BILIRUBIN,TOTAL 0.3 mg/dL (0.2-1.0); BLOOD UREA NITROGEN 8 mg/dL (7-18); CALCIUM 8.4 mg/dL (8.5-10.1); CHLORIDE 110 mmol/L (98-107); CO2 32 mmol/L (21-32); CREATININE 0.6 mg/dL (0.7-1.3); GLUCOSE,RANDOM 167 mg/dL (74-106); POTASSIUM 3.6 mmol/L (3.5-5.1); SGOT/AST 23 U/L (15-37); SGPT/ALT 28 U/L (12-78); SODIUM 149 mmol/L (136-145); TOT PROT 6.1 g/dl (6.4-8.2)
[2018-04-27 10:44] LABS: ALK PHOS 162 U/L (45-117)
[2018-04-27 12:12] LABS: ANISOCYTOSIS 1+; MACROCYTOSIS 0; PLATELET ESTIMATE NORMAL
--- NOTE | 2018-04-27 16:47 | PN ---
Progress Note (short form) - Note Progress Note: POD#2 left foot. vss, tmax 98.2 No pain. dressing intact, wbc=6.7 -drainage +improved edema, +packing intact, -mal odor, -necrosis of visible tissue at this time, +granulation normal post op Packing pulled x 4. Betadine irrigation and dressing change done packing replaced. Continue IVABX as per ID needs PICC line to go home. VNS for wound care at home. Will DC to home on abx as per Id drainage has ceased. Continue HBO upon DC. present during bandage change. Upon DC patient to follow in wound care center.
[2018-04-27] MEDS ORDERED: INSULIN (NOVOLOG) ASPART 100 UNITS/ML 10ML VIAL ONE (21:46)
[2018-04-27] MEDS: ATORVASTATIN CA 20 MG TABLET (FP) PO SCH (21:50)
[2018-04-28] MEDS: SODIUM CHLORIDE 1,000 ML IV SCH (02:38)
[2018-04-28] MEDS: AMPICILLIN NA/SULBACTAM NA 3 GM in SODIUM CHLORIDE 100 ML IVPB SCH ×4 (02:39→21:23)
[2018-04-28 06:51] LABS: BASO % 0.5 % (0-2.0); EOS % 1.7 % (0-4.5); HEMATOCRIT 33.8 % (35.4-49); HEMOGLOBIN 11.3 GM/dL (11.7-16.9); LYMPH % 15.7 % (8-40); MCH 27.5 pg (25.7-33.7); MCHC 33.3 g/dl (32.0-35.9); MEAN CELL VOLUME 82.8 fl (80-96); MEAN PLT VOLUME 7.6 fl (7.5-11.1); MONO % 7.5 % (3.8-10.2); NEUT % 74.6 % (42.8-82.8); PLATELET COUNT 392 K/MM3 (134-434); RBC 4.09 M/mm3 (4.00-5.60); WHITE BLOOD COUNT 6.2 K/mm3 (4.0-10.0)
[2018-04-28] MEDS: glipiZIDE 5 MG TABLET (FP) PO SCH ×2 (06:54→17:10)
[2018-04-28] MEDS: INSULIN SLIDING SCALE (NOVOLOG) 1 VIAL SQ SCH ×4 (06:54→21:24)
[2018-04-28] MEDS: HEPARIN NA (PORCINE) 5,000 UNITS/ML 1ML VIAL SQ SCH ×3 (06:55→21:23)
[2018-04-28] MEDS: sitaGLIPtin PHOSPHATE 100 MG TABLET (FP) PO SCH (06:55)
[2018-04-28 07:23] LABS: ALBUMIN 2.4 g/dl (3.4-5.0); ANION GAP 8 MMOL/L (8-16); BLOOD UREA NITROGEN 7 mg/dL (7-18); CALCIUM 8.3 mg/dL (8.5-10.1); CHLORIDE 112 mmol/L (98-107); CO2 32 mmol/L (21-32); CREATININE 0.6 mg/dL (0.7-1.3); GLUCOSE,RANDOM 155 mg/dL (74-106); POTASSIUM 3.3 mmol/L (3.5-5.1); SGOT/AST 24 U/L (15-37); SGPT/ALT 28 U/L (12-78); SODIUM 152 mmol/L (136-145)
[2018-04-28 07:24] LABS: ALK PHOS 150 U/L (45-117); BILIRUBIN,TOTAL 0.4 mg/dL (0.2-1.0); TOT PROT 6.1 g/dl (6.4-8.2)
[2018-04-28] MEDS ORDERED: INSULIN (NOVOLOG) ASPART 100 UNITS/ML 10ML VIAL ONE (07:26)
[2018-04-28] MEDS ORDERED: PT OWN MED DRAWER 7, Y5N ONE ×4 (09:53→21:19)
[2018-04-28] MEDS: PANTOPRAZOLE SODIUM 40 MG VIAL IVPUSH SCH (09:58)
--- NOTE | 2018-04-28 10:00 | PN ---
Progress Note, Physician Chief Complaint: Diabetic foot ulcer History of Present Illness: nad on IV abx Seen by Podiatry and ID - Current Medication List Current Medications: Active Medications Acetaminophen (Tylenol -) 650 mg PO Q6H PRN PRN Reason: FEVER Atorvastatin Calcium (Lipitor -) 20 mg PO HS [facility] Last Admin: 04/27/18 21:50 Dose: 20 mg Glipizide (Glucotrol -) 5 mg PO BID@0700,1630 [facility] Last Admin: 04/28/18 06:54 Dose: 5 mg Heparin Sodium (Porcine) (Heparin -) 5,000 unit SQ TID [facility] Last Admin: 04/28/18 06:55 Dose: 5,000 unit Ampicillin Sodium/Sulbactam (Sodium 3 gm/ Sodium Chloride) 100 mls @ 200 mls/ hr IVPB Q6H-IV [facility] Last Admin: 04/28/18 02:39 Dose: 200 mls/hr Sodium Chloride (Normal Saline -) 1,000 mls @ 100 mls/hr IV ASDIR [facility] Last Admin: 04/28/18 02:38 Dose: 100 mls/hr Insulin Aspart (Novolog Vial Sliding Scale -) 1 vial SQ TIDAC [facility]; Protocol Last Admin: 04/28/18 06:54 Dose: 4 units Insulin Aspart (Novolog Vial Sliding Scale -) 1 vial SQ HS [facility]; Protocol Last Admin: 04/27/18 21:49 Dose: 2 unit Ondansetron HCl (Zofran Injection) 4 mg IVPB Q6H PRN PRN Reason: NAUSEA AND/OR VOMITING Last Admin: 04/27/18 12:41 Dose: 4 mg Pantoprazole Sodium (Protonix Iv) 40 mg IVPUSH BID [facility] Last Admin: 04/27/18 21:50 Dose: 40 mg Sitagliptin Phosphate (Januvia -) 100 mg PO DAILY@0700 [facility] Last Admin: 04/28/18 06:55 Dose: 100 mg - Objective Vital Signs: Vital Signs Temperature 98.6 F 04/28/18 06:00 Pulse Rate 59 L 04/28/18 06:00 Respiratory Rate 18 04/28/18 06:00 Blood Pressure 128/75 04/28/18 06:00 O2 Sat by Pulse Oximetry (%) 95 04/27/18 21:00 Constitutional: Yes: Well Nourished, No Distress, Calm Cardiovascular: Yes: Regular Rate and Rhythm Respiratory: Yes: Regular Gastrointestinal: Yes: Normal Bowel Sounds, Soft Wound/Incision: Yes: Dressing Dry and Intact Neurological: Yes: Alert, Oriented Psychiatric: Yes: Alert, Oriented Labs: CBC, BMP 04/28/18 06:30 04/28/18 06:30 INR, PTT INR 1.37 (0.83-1.09) H 04/22/18 06:15 Problem List - Problems (1) Diabetic foot infection Assessment/Plan: -had left foot I&D 04/25 -LE MRI- negative for osteomyelitis -Wound culture: Microbiology 04/25/18 14:45 Foot - Left Gram Stain - Final 04/24/18 09:37 Cellulitis Gram Stain - Final 04/24/18 09:37 Cellulitis Wound Culture - Preliminary Group D Strep Or Entero Coccus Beta Hemolytic Strep Pending Organism Staphylococcus Coagulase Neg Alpha Hemolytic Streptococcus 04/20/18 23:59 Blood - Peripheral Venous Blood Culture - Final NO GROWTH AFTER 5 DAYS INCUBATION 04/20/18 23:45 Blood - Peripheral Venous Blood Culture - Final NO GROWTH AFTER 5 DAYS INCUBATION 04/21/18 17:00 Foot - Left Gram Stain - Final 04/21/18 17:00 Foot - Left Wound Culture - Final Strep Agalactiae Group B Staphylococcus Aureus Streptococcus Viridans 04/21/18 17:00 Foot - Left Gram Stain - Final 04/21/18 17:00 Foot - Left Wound Culture - Final 04/21/18 12:00 Foot - Left Dorsum Gram Stain - Final 04/21/18 12:00 Foot - Left Dorsum Wound Culture - Final NO AEROBIC OR ANAEROBIC GROWTH OBTAINED. 04/21/18 02:47 Nares - Mrsa Screen - Right MRSA Screen - Final NO MRSA ISOLATED 04/21/18 02:47 Nares - Mrsa Screen - Left MRSA Screen - Final NO MRSA ISOLATED -Seen by Podiatry and ID -IV abx -Needs PICC line and ID to decide on abx upon discharge Code(s): E11.628 - TYPE 2 DIABETES MELLITUS WITH OTHER SKIN COMPLICATIONS; L08.9 - LOCAL INFECTION OF THE SKIN AND SUBCUTANEOUS TISSUE, UNSP (2) Uncontrolled diabetes mellitus Assessment/Plan: -A1c at 11.0 -Seen by endocrinology -BGM AC HS -Diabetic diet -Insulin:novolog sliding scale -Januvia + Glipizide -RD consult Code(s): E11.65 - TYPE 2 DIABETES MELLITUS WITH HYPERGLYCEMIA (3) Hypokalemia Assessment/Plan: -KCl 40 meq po once -change IVF to 1/2 NS+ KCl 20 meq @ 100 cc/hr -repeat labs in AM Code(s): E87.6 - HYPOKALEMIA (4) Hypernatremia Assessment/Plan: -change IVF to 1/2 NS+ KCl 20 meq @ 100 cc/hr -monitor labs Code(s): E87.0 - HYPEROSMOLALITY AND HYPERNATREMIA Assessment/Plan see problem list
[2018-04-28] MEDS: PANTOPRAZOLE 40 MG TABLET (FP) PO SCH (10:20)
[2018-04-28] MEDS: SODIUM CHLORIDE 0.45%/POT 20 MEQ/1,000 ML INFUS.BAG IV SCH ×2 (11:16→23:27)
--- NOTE | 2018-04-28 11:57 | PN ---
Progress Note (short form) - Note Progress Note: Denies any complaints FS improving No hypos Vital Signs Period Temp Pulse Resp BP Sys/Muller Pulse Ox Last 24 Hr 98.0 F-98.6 F 50-61 18-20 123-146/62-90 95 PE: AOx3 Neck: Supple, No JVD HEENT: PERRL, EOMI Lungs: CTA CVS: S1S2 Abd: Benign EXt: left foot dressing Neuro: No focal deficit CMP Sodium 152 mmol/L (136-145) H 04/28/18 06:30 Potassium 3.3 mmol/L (3.5-5.1) L 04/28/18 06:30 Chloride 112 mmol/L (98-107) H 04/28/18 06:30 Carbon Dioxide 32 mmol/L (21-32) 04/28/18 06:30 Anion Gap 8 MMOL/L (8-16) 04/28/18 06:30 BUN 7 mg/dL (7-18) 04/28/18 06:30 Creatinine 0.6 mg/dL (0.7-1.3) L 04/28/18 06:30 Creat Clearance w eGFR > 60 (>60) 04/28/18 06:30 POC Glucometer 152 UNITS (80-120) 04/28/18 06:34 Random Glucose 155 mg/dL (74-106) H 04/28/18 06:30 Hemoglobin A1c % 11.0 % (4.8-6.0) H 04/21/18 00:00 Lactic Acid 1.3 mmol/L (0.0-2.0) 04/20/18 23:59 Calcium 8.3 mg/dL (8.5-10.1) L 04/28/18 06:30 Phosphorus 2.4 mg/dL (2.5-4.9) L 04/21/18 06:00 Magnesium 2.0 mg/dL (1.8-2.4) 04/22/18 06:15 Total Bilirubin 0.4 mg/dL (0.2-1.0) 04/28/18 06:30 AST 24 U/L (15-37) 04/28/18 06:30 ALT 28 U/L (12-78) 04/28/18 06:30 Alkaline Phosphatase 150 U/L (45-117) H D 04/28/18 06:30 Troponin I < 0.02 ng/ml (0.00-0.05) 04/20/18 23:59 C-Reactive Protein 9.1 MG/DL (0.00-0.3) H 04/25/18 06:10 Total Protein 6.1 g/dl (6.4-8.2) L 04/28/18 06:30 Albumin 2.4 g/dl (3.4-5.0) L 04/28/18 06:30 Triglycerides 114 mg/dL (35-160) 04/21/18 06:00 Cholesterol 154 mg/dL (50-200) 04/21/18 06:00 Total LDL Cholesterol 115 mg/dL (5-100) H 04/21/18 06:00 HDL Cholesterol 29 mg/dL (40-60) L 04/21/18 06:00 Total Amylase 31 U/L (25-115) 04/26/18 12:30 Lipase 103 U/L (73-393) 04/26/18 12:30 Current Medications Generic Name Dose Route Start Last Admin Trade Name Freq PRN Reason Stop Dose Admin Acetaminophen 650 mg 04/25/18 13:37 Tylenol - PO Q6H PRN FEVER Atorvastatin Calcium 20 mg 04/27/18 22:00 04/27/18 21:50 Lipitor - PO 20 mg HS JAGUAR Administration Glipizide 5 mg 04/25/18 16:30 04/28/18 06:54 Glucotrol - PO 5 mg BID@0700,1630 JAGUAR Administration Heparin Sodium (Porcine) 5,000 unit 04/25/18 14:00 04/28/18 06:55 Heparin - SQ 5,000 unit TID JAGUAR Administration Ampicillin Sodium/Sulbactam 100 mls @ 200 mls/hr 04/25/18 15:00 04/28/18 09: 58 Sodium 3 gm/ Sodium Chloride IVPB 200 mls/hr Q6H-IV JAGUAR Administration Potassium Chloride/Sodium Chloride 20 meq in 1,000 mls @ 100 mls/hr 04/28/18 10:00 04/28/18 11:16 1/2ns+20meq Kcl IV 100 mls/hr ASDIR JAGUAR Administration Insulin Aspart 1 vial 04/25/18 16:30 04/28/18 06:54 Novolog Vial Sliding Scale - SQ 4 units TIDAC JAGUAR Administration Protocol Insulin Aspart 1 vial 04/25/18 22:00 04/27/18 21:49 Novolog Vial Sliding Scale - SQ 2 unit HS [facility] Administration Protocol Ondansetron HCl 4 mg 04/28/18 11:00 Zofran - PO TIDAC JAGUAR Pantoprazole Sodium 40 mg 04/28/18 10:00 04/28/18 10:20 Protonix - PO Not Given DAILY [facility] Sitagliptin Phosphate 100 mg 04/26/18 07:00 04/28/18 06:55 Januvia - PO 100 mg DAILY@0700 [facility] Administration AP: Left foot Infection s/P debridement T2DM Uncontrolled: A1c 11.0 Improving blood sugar BGM QACHS Novolog SS coverage Januvia 100mg QD Restart Metformin 500mg BID Glipizide 5mg BID premeals Risk of hypoglycemia with Glipizide and need to eat within 15 to 30 minutes of taking the medication discussed. Pt verbalizes understanding. Pt doesn't want to take Insulin as outpatient. IV Abx Local wound care Will F/u Problem List - Problems (1) Cellulitis Code(s): L03.90 - CELLULITIS, UNSPECIFIED Qualifiers: Site of cellulitis: extremity Site of cellulitis of extremity: lower extremity Laterality: left Qualified Code(s): L03.116 - Cellulitis of left lower limb (2) Diabetes Code(s): E11.9 - TYPE 2 DIABETES MELLITUS WITHOUT COMPLICATIONS (3) Diabetic foot infection Code(s): E11.628 - TYPE 2 DIABETES MELLITUS WITH OTHER SKIN COMPLICATIONS; L08.9 - LOCAL INFECTION OF THE SKIN AND SUBCUTANEOUS TISSUE, UNSP
[2018-04-28] MEDS: ONDANSETRON 4 MG TABLET PO SCH ×2 (12:00→17:10)
--- NOTE | 2018-04-28 13:14 | PN ---
Progress Note, Physician Chief Complaint: POD#3 2nd procedure. - Current Medication List Current Medications: Active Medications Acetaminophen (Tylenol -) 650 mg PO Q6H PRN PRN Reason: FEVER Atorvastatin Calcium (Lipitor -) 20 mg PO HS [facility] Last Admin: 04/27/18 21:50 Dose: 20 mg Glipizide (Glucotrol -) 5 mg PO BID@0700,1630 [facility] Last Admin: 04/28/18 06:54 Dose: 5 mg Heparin Sodium (Porcine) (Heparin -) 5,000 unit SQ TID [facility] Last Admin: 04/28/18 06:55 Dose: 5,000 unit Ampicillin Sodium/Sulbactam (Sodium 3 gm/ Sodium Chloride) 100 mls @ 200 mls/ hr IVPB Q6H-IV [facility] Last Admin: 04/28/18 09:58 Dose: 200 mls/hr Potassium Chloride/Sodium Chloride (1/2ns+20meq Kcl) 20 meq in 1,000 mls @ 100 mls/hr IV ASDIR [facility] Last Admin: 04/28/18 11:16 Dose: 100 mls/hr Insulin Aspart (Novolog Vial Sliding Scale -) 1 vial SQ TIDAC [facility]; Protocol Last Admin: 04/28/18 11:57 Dose: Not Given Insulin Aspart (Novolog Vial Sliding Scale -) 1 vial SQ [facility]; Protocol Last Admin: 04/27/18 21:49 Dose: 2 unit Metformin HCl (Glucophage -) 500 mg PO BID@0700,1630 [facility] Ondansetron HCl (Zofran -) 4 mg PO TIDAC [facility] Last Admin: 04/28/18 12:00 Dose: 4 mg Pantoprazole Sodium (Protonix -) 40 mg PO DAILY [facility] Last Admin: 04/28/18 10:20 Dose: Not Given Sitagliptin Phosphate (Januvia -) 100 mg PO DAILY@0700 [facility] Last Admin: 04/28/18 06:55 Dose: 100 mg - Objective Vital Signs: Vital Signs Temperature 98.2 F 04/28/18 09:00 Pulse Rate 61 04/28/18 09:00 Respiratory Rate 18 04/28/18 09:00 Blood Pressure 131/90 04/28/18 09:00 O2 Sat by Pulse Oximetry (%) 96 04/28/18 09:00 Extremities: Yes: Other (left foot, -mal odor, -drainage, -cellulitis, + granulating well, multiple organisms noted on new cultures) Labs: CBC, BMP 04/28/18 06:30 04/28/18 06:30 INR, PTT INR 1.37 (0.83-1.09) H 04/22/18 06:15 Assessment/Plan normal post op improving foot All packing removed and unreplaced. Betadine irrigation all wounds x 4. Dry sterile dressing, porter bandage applied. Will follow.
[2018-04-28] MEDS: metFORMIN HCL 500 MG TABLET (FP) PO SCH (17:10)
[2018-04-28] MEDS: ATORVASTATIN CA 20 MG TABLET (FP) PO SCH (21:24)
[2018-04-29] MEDS: AMPICILLIN NA/SULBACTAM NA 3 GM in SODIUM CHLORIDE 100 ML IVPB SCH ×4 (03:02→21:56)
[2018-04-29] MEDS: metFORMIN HCL 500 MG TABLET (FP) PO SCH ×2 (06:32→18:51)
[2018-04-29] MEDS: HEPARIN NA (PORCINE) 5,000 UNITS/ML 1ML VIAL SQ SCH ×3 (06:32→21:57)
[2018-04-29] MEDS: ONDANSETRON 4 MG TABLET PO SCH ×3 (06:33→17:29)
[2018-04-29] MEDS: INSULIN SLIDING SCALE (NOVOLOG) 1 VIAL SQ SCH ×4 (06:33→21:58)
[2018-04-29] MEDS: glipiZIDE 5 MG TABLET (FP) PO SCH ×2 (06:33→18:51)
[2018-04-29] MEDS: sitaGLIPtin PHOSPHATE 100 MG TABLET (FP) PO SCH (06:33)
[2018-04-29 07:29] LABS: BASO % 0.7 % (0-2.0); EOS % 1.4 % (0-4.5); HEMATOCRIT 34.9 % (35.4-49); HEMOGLOBIN 11.6 GM/dL (11.7-16.9); LYMPH % 15.4 % (8-40); MCH 27.6 pg (25.7-33.7); MCHC 33.2 g/dl (32.0-35.9); MEAN CELL VOLUME 83.2 fl (80-96); MONO % 6.1 % (3.8-10.2); NEUT % 76.4 % (42.8-82.8); PLATELET COUNT 378 K/MM3 (134-434); RDW 13.6 % (11.9-15.9); WHITE BLOOD COUNT 6.6 K/mm3 (4.0-10.0)
[2018-04-29 07:59] LABS: ALBUMIN 2.6 g/dl (3.4-5.0); ANION GAP 7 MMOL/L (8-16); BLOOD UREA NITROGEN 8 mg/dL (7-18); CALCIUM 8.5 mg/dL (8.5-10.1); CHLORIDE 108 mmol/L (98-107); CO2 33 mmol/L (21-32); GLUCOSE,RANDOM 126 mg/dL (74-106); POTASSIUM 3.7 mmol/L (3.5-5.1); SODIUM 148 mmol/L (136-145)
[2018-04-29 08:02] LABS: ALK PHOS 148 U/L (45-117); BILIRUBIN,TOTAL 0.5 mg/dL (0.2-1.0); CREATININE 0.6 mg/dL (0.7-1.3); SGOT/AST 20 U/L (15-37); SGPT/ALT 26 U/L (12-78); TOT PROT 6.2 g/dl (6.4-8.2)
[2018-04-29] MEDS ORDERED: PT OWN MED DRAWER 7, Y5N ONE ×3 (10:33→20:28)
[2018-04-29 10:35] LABS: ANISOCYTOSIS 1+; MACROCYTOSIS 0; PLATELET ESTIMATE NORMAL
[2018-04-29] MEDS: SODIUM CHLORIDE 0.45%/POT 20 MEQ/1,000 ML INFUS.BAG IV SCH ×2 (10:36→22:48)
[2018-04-29] MEDS: PANTOPRAZOLE 40 MG TABLET (FP) PO SCH (10:37)
[2018-04-29] MEDS ORDERED: INSULIN (NOVOLOG) ASPART 100 UNITS/ML 10ML VIAL ONE ×2 (11:53→20:27)
--- NOTE | 2018-04-29 13:49 | PN ---
Progress Note (short form) - Note Progress Note: Denies any complaints FS improving FS 80s prelunch, asymptomatic No hypos Vital Signs Period Temp Pulse Resp BP Sys/Muller Pulse Ox Last 24 Hr 98 F-98.6 F 53-63 20-20 115-141/58-99 PE: AOx3 Neck: Supple, No JVD HEENT: PERRL, EOMI Lungs: CTA CVS: S1S2 Abd: Benign EXt: left foot dressing Neuro: No focal deficit CMP Sodium 148 mmol/L (136-145) H 04/29/18 06:30 Potassium 3.7 mmol/L (3.5-5.1) 04/29/18 06:30 Chloride 108 mmol/L (98-107) H 04/29/18 06:30 Carbon Dioxide 33 mmol/L (21-32) H 04/29/18 06:30 Anion Gap 7 MMOL/L (8-16) L 04/29/18 06:30 BUN 8 mg/dL (7-18) 04/29/18 06:30 Creatinine 0.6 mg/dL (0.7-1.3) L 04/29/18 06:30 Creat Clearance w eGFR > 60 (>60) 04/29/18 06:30 POC Glucometer 89 UNITS (80-120) 04/29/18 12:06 Random Glucose 126 mg/dL (74-106) H 04/29/18 06:30 Hemoglobin A1c % 11.0 % (4.8-6.0) H 04/21/18 00:00 Lactic Acid 1.3 mmol/L (0.0-2.0) 04/20/18 23:59 Calcium 8.5 mg/dL (8.5-10.1) 04/29/18 06:30 Phosphorus 2.4 mg/dL (2.5-4.9) L 04/21/18 06:00 Magnesium 2.0 mg/dL (1.8-2.4) 04/22/18 06:15 Total Bilirubin 0.5 mg/dL (0.2-1.0) 04/29/18 06:30 AST 20 U/L (15-37) 04/29/18 06:30 ALT 26 U/L (12-78) 04/29/18 06:30 Alkaline Phosphatase 148 U/L (45-117) H 04/29/18 06:30 Troponin I < 0.02 ng/ml (0.00-0.05) 04/20/18 23:59 C-Reactive Protein 9.1 MG/DL (0.00-0.3) H 04/25/18 06:10 Total Protein 6.2 g/dl (6.4-8.2) L 04/29/18 06:30 Albumin 2.6 g/dl (3.4-5.0) L 04/29/18 06:30 Triglycerides 114 mg/dL (35-160) 04/21/18 06:00 Cholesterol 154 mg/dL (50-200) 04/21/18 06:00 Total LDL Cholesterol 115 mg/dL (5-100) H 04/21/18 06:00 HDL Cholesterol 29 mg/dL (40-60) L 04/21/18 06:00 Total Amylase 31 U/L (25-115) 04/26/18 12:30 Lipase 103 U/L (73-393) 04/26/18 12:30 Current Medications Generic Name Dose Route Start Last Admin Trade Name Freq PRN Reason Stop Dose Admin Acetaminophen 650 mg 04/25/18 13:37 Tylenol - PO Q6H PRN FEVER Atorvastatin Calcium 20 mg 04/27/18 22:00 04/28/18 21:24 Lipitor - PO 20 mg HS JAGUAR Administration Glipizide 5 mg 04/25/18 16:30 04/29/18 06:33 Glucotrol - PO 5 mg BID@0700,1630 JAGUAR Administration Heparin Sodium (Porcine) 5,000 unit 04/25/18 14:00 04/29/18 06:32 Heparin - SQ 5,000 unit TID JAGUAR Administration Ampicillin Sodium/Sulbactam 100 mls @ 200 mls/hr 04/25/18 15:00 04/29/18 10: 36 Sodium 3 gm/ Sodium Chloride IVPB 200 mls/hr Q6H-IV JAGUAR Administration Potassium Chloride/Sodium Chloride 20 meq in 1,000 mls @ 100 mls/hr 04/28/18 10:00 04/29/18 10:36 1/2ns+20meq Kcl IV 100 mls/hr ASDIR JAGUAR Administration Insulin Aspart 1 vial 04/25/18 16:30 04/29/18 12:07 Novolog Vial Sliding Scale - SQ Not Given TIDAC [facility] Protocol Insulin Aspart 1 vial 04/25/18 22:00 04/28/18 21:24 Novolog Vial Sliding Scale - SQ Not Given HS [facility] Protocol Metformin HCl 500 mg 04/28/18 16:30 04/29/18 06:32 Glucophage - PO 500 mg BID@0700,1630 JAGUAR Administration Ondansetron HCl 4 mg 04/28/18 11:00 04/29/18 10:37 Zofran - PO 4 mg TIDAC JAGUAR Administration Pantoprazole Sodium 40 mg 04/28/18 10:00 04/29/18 10:37 Protonix - PO 40 mg DAILY JAGUAR Administration Sitagliptin Phosphate 100 mg 04/26/18 07:00 04/29/18 06:33 Januvia - PO 100 mg DAILY@0700 JAGUAR Administration AP: Left foot Infection s/P debridement T2DM Uncontrolled: A1c 11.0 Improving blood sugar BGM QACHS Decrease Novolog SS coverage Januvia 100mg QD Metformin 500mg BID Change Glipizide 2.5mg TID premeals Risk of hypoglycemia with Glipizide and need to eat within 15 to 30 minutes of taking the medication discussed. Pt verbalizes understanding. Pt doesn't want to take Insulin as outpatient. IV Abx Local wound care Will F/u Problem List - Problems (1) Cellulitis Code(s): L03.90 - CELLULITIS, UNSPECIFIED Qualifiers: Site of cellulitis: extremity Site of cellulitis of extremity: lower extremity Laterality: left Qualified Code(s): L03.116 - Cellulitis of left lower limb (2) Diabetes Code(s): E11.9 - TYPE 2 DIABETES MELLITUS WITHOUT COMPLICATIONS (3) Diabetic foot infection Code(s): E11.628 - TYPE 2 DIABETES MELLITUS WITH OTHER SKIN COMPLICATIONS; L08.9 - LOCAL INFECTION OF THE SKIN AND SUBCUTANEOUS TISSUE, UNSP
--- NOTE | 2018-04-29 15:36 | PN ---
Progress Note (short form) - Note Progress Note: s/p repeat debridement 04/25 no diarrhea Vital Signs Period Temp Pulse Resp BP Sys/Muller Pulse Ox Last 24 Hr 97.9 F-98.6 F 53-56 18-20 115-151/58-77 95 cor-rrr lungs clear foot no purulence noted, wounds on both dorsum and plantar surface of the foot CBC, BMP 04/29/18 06:30 04/29/18 06:30 Microbiology 04/24/18 09:37 Cellulitis Gram Stain - Final 04/24/18 09:37 Cellulitis Wound Culture - Final Streptococcus Milleri Group Strep Agalactiae Group B Staphylococcus Coagulase Neg 04/25/18 14:45 Foot - Left Gram Stain - Final 04/25/18 14:45 Foot - Left Wound Culture - Preliminary Group D Strep Or Entero Coccus 04/20/18 23:59 Blood - Peripheral Venous Blood Culture - Final NO GROWTH AFTER 5 DAYS INCUBATION 04/20/18 23:45 Blood - Peripheral Venous Blood Culture - Final NO GROWTH AFTER 5 DAYS INCUBATION 04/21/18 17:00 Foot - Left Gram Stain - Final 04/21/18 17:00 Foot - Left Wound Culture - Final Strep Agalactiae Group B Staphylococcus Aureus Streptococcus Viridans 04/21/18 17:00 Foot - Left Gram Stain - Final 04/21/18 17:00 Foot - Left Wound Culture - Final 04/21/18 12:00 Foot - Left Dorsum Gram Stain - Final 04/21/18 12:00 Foot - Left Dorsum Wound Culture - Final NO AEROBIC OR ANAEROBIC GROWTH OBTAINED. 04/21/18 02:47 Nares - Mrsa Screen - Right MRSA Screen - Final NO MRSA ISOLATED 04/21/18 02:47 Nares - Mrsa Screen - Left MRSA Screen - Final NO MRSA ISOLATED MRI abscess, no osteomyelitis a/p Severe Diabetic foot infection-s/p drainage of abscess times two- cultures reviewed-strep/MSSA currently on Unasyn-doing well would plan to switch to iv rocephin and treat for 3 to 4 weeks with iv ceftriaxone 2 g daily and po flagyl 500 tid weekly labs while on iv antibiotics may need oral antibiotics as followup to iv we can see him when he comes to wound care to see podiatry to help with his antibiotic management repeat esr/crp in am, trending down poorly controlled DM needs education and better DM control d/w dr skelton Problem List - Problems (1) Diabetic foot infection Code(s): E11.628 - TYPE 2 DIABETES MELLITUS WITH OTHER SKIN COMPLICATIONS; L08.9 - LOCAL INFECTION OF THE SKIN AND SUBCUTANEOUS TISSUE, UNSP (2) Diabetes Code(s): E11.9 - TYPE 2 DIABETES MELLITUS WITHOUT COMPLICATIONS
--- NOTE | 2018-04-29 15:59 | PN ---
Progress Note (short form) - Note Progress Note: POD#4 left foot. vss, tmax 98.2 No pain. dressing intact, wbc=6.6 -drainage -edema, -mal odor, +necrosis central wound area of skin island created from I&D, +granulation normal post op Betadine irrigation and dressing change done.. Continue IVABX as per ID needs PICC line to go home. VNS for wound care at home. Will DC to home on abx as per Id drainage has ceased. Continue HBO upon DC. Dr. Patricio present during dressing change. Discussed with her. present during bandage change. Upon DC patient to follow in wound care center. Patient fully understands all risks benefits and alternatives.
--- NOTE | 2018-04-29 20:34 | PN ---
Progress Note, Physician - Current Medication List Current Medications: Active Medications Acetaminophen (Tylenol -) 650 mg PO Q6H PRN PRN Reason: FEVER Atorvastatin Calcium (Lipitor -) 20 mg PO HS [facility] Last Admin: 04/28/18 21:24 Dose: 20 mg Glipizide (Glucotrol -) 2.5 mg PO TIDAC [facility] Last Admin: 04/29/18 18:51 Dose: 2.5 mg Heparin Sodium (Porcine) (Heparin -) 5,000 unit SQ TID [facility] Last Admin: 04/29/18 15:37 Dose: 5,000 unit Ampicillin Sodium/Sulbactam (Sodium 3 gm/ Sodium Chloride) 100 mls @ 200 mls/ hr IVPB Q6H-IV [facility] Last Admin: 04/29/18 15:37 Dose: 200 mls/hr Potassium Chloride/Sodium Chloride (1/2ns+20meq Kcl) 20 meq in 1,000 mls @ 100 mls/hr IV ASDIR [facility] Last Admin: 04/29/18 10:36 Dose: 100 mls/hr Insulin Aspart (Novolog Vial Sliding Scale -) 1 vial SQ [facility]; Protocol Last Admin: 04/28/18 21:24 Dose: Not Given Insulin Aspart (Novolog Vial Sliding Scale -) 1 vial SQ TIDAC [facility]; Protocol Last Admin: 04/29/18 17:29 Dose: Not Given Metformin HCl (Glucophage -) 500 mg PO BID@0700,1630 [facility] Last Admin: 04/29/18 18:51 Dose: 500 mg Ondansetron HCl (Zofran -) 4 mg PO TIDAC [facility] Last Admin: 04/29/18 17:29 Dose: 4 mg Pantoprazole Sodium (Protonix -) 40 mg PO DAILY [facility] Last Admin: 04/29/18 10:37 Dose: 40 mg Sitagliptin Phosphate (Januvia -) 100 mg PO DAILY@0700 [facility] Last Admin: 04/29/18 06:33 Dose: 100 mg - Objective Vital Signs: Vital Signs Temperature 98.4 F 04/29/18 18:48 Pulse Rate 58 L 04/29/18 18:48 Respiratory Rate 18 04/29/18 18:48 Blood Pressure 127/63 04/29/18 18:48 O2 Sat by Pulse Oximetry (%) 95 04/29/18 09:00 Cardiovascular: Yes: S1, S2 Respiratory: Yes: Regular, CTA Bilaterally Gastrointestinal: Yes: Normal Bowel Sounds, Soft Wound/Incision: Yes: Dressing Dry and Intact Labs: CBC, BMP 04/29/18 06:30 04/29/18 06:30 INR, PTT INR 1.37 (0.83-1.09) H 04/22/18 06:15 Problem List - Problems (1) Diabetic foot infection Assessment/Plan: - Problems (1) Diabetic foot infection Assessment/Plan: -had left foot I&D 04/25 -LE MRI- negative for osteomyelitis -Wound culture: Microbiology 04/25/18 14:45 Foot - Left Gram Stain - Final 04/24/18 09:37 Cellulitis Gram Stain - Final 04/24/18 09:37 Cellulitis Wound Culture - Preliminary Group D Strep Or Entero Coccus Beta Hemolytic Strep Pending Organism Staphylococcus Coagulase Neg Alpha Hemolytic Streptococcus 04/20/18 23:59 Blood - Peripheral Venous Blood Culture - Final NO GROWTH AFTER 5 DAYS INCUBATION 04/20/18 23:45 Blood - Peripheral Venous Blood Culture - Final NO GROWTH AFTER 5 DAYS INCUBATION 04/21/18 17:00 Foot - Left Gram Stain - Final 04/21/18 17:00 Foot - Left Wound Culture - Final Strep Agalactiae Group B Staphylococcus Aureus Streptococcus Viridans 04/21/18 17:00 Foot - Left Gram Stain - Final 04/21/18 17:00 Foot - Left Wound Culture - Final 04/21/18 12:00 Foot - Left Dorsum Gram Stain - Final 04/21/18 12:00 Foot - Left Dorsum Wound Culture - Final NO AEROBIC OR ANAEROBIC GROWTH OBTAINED. 04/21/18 02:47 Nares - Mrsa Screen - Right MRSA Screen - Final NO MRSA ISOLATED 04/21/18 02:47 Nares - Mrsa Screen - Left MRSA Screen - Final NO MRSA ISOLATED -Seen by Podiatry and ID -IV abx -Needs PICC line and ID to decide on abx upon discharge Code(s): E11.628 - TYPE 2 DIABETES MELLITUS WITH OTHER SKIN COMPLICATIONS; L08.9 - LOCAL INFECTION OF THE SKIN AND SUBCUTANEOUS TISSUE, UNSP (2) Diabetes Assessment/Plan: - NISS and BGM ACHS -A1c at 11.0 -Seen by endocrinology -Diabetic diet -Insulin:novolog sliding scale -Januvia + Glipizide -RD consult Code(s): E11.9 - TYPE 2 DIABETES MELLITUS WITHOUT COMPLICATIONS (3) Nausea & vomiting Assessment/Plan: -PPI LABS MONITOR Code(s): R11.2 - NAUSEA WITH VOMITING, UNSPECIFIED (4) Hypernatremia Assessment/Plan: -change IVF to 1/2 NS+ KCl 20 meq @ 100 cc/hr -monitor labs Code(s): E87.0 - HYPEROSMOLALITY AND HYPERNATREMIA (5) Hypokalemia Assessment/Plan: : -KCl 40 meq po once -change IVF to 1/2 NS+ KCl 20 meq @ 100 cc/hr -repeat labs in AM Code(s): E87.6 - HYPOKALEMIA
[2018-04-29] MEDS: ATORVASTATIN CA 20 MG TABLET (FP) PO SCH (21:57)
[2018-04-30] MEDS: AMPICILLIN NA/SULBACTAM NA 3 GM in SODIUM CHLORIDE 100 ML IVPB SCH ×3 (02:39→15:59)
[2018-04-30] MEDS: HEPARIN NA (PORCINE) 5,000 UNITS/ML 1ML VIAL SQ SCH ×2 (06:50→15:59)
[2018-04-30] MEDS: ONDANSETRON 4 MG TABLET PO SCH ×3 (06:51→17:22)
[2018-04-30] MEDS: INSULIN SLIDING SCALE (NOVOLOG) 1 VIAL SQ SCH ×3 (06:51→17:22)
[2018-04-30 07:24] LABS: BASO % 0.3 % (0-2.0); EOS % 1.6 % (0-4.5); HEMATOCRIT 34.9 % (35.4-49); HEMOGLOBIN 11.5 GM/dL (11.7-16.9); LYMPH % 15.8 % (8-40); MCH 27.1 pg (25.7-33.7); MCHC 32.9 g/dl (32.0-35.9); MEAN CELL VOLUME 82.5 fl (80-96); MEAN PLT VOLUME 7.7 fl (7.5-11.1); MONO % 5.9 % (3.8-10.2); NEUT % 76.4 % (42.8-82.8); PLATELET COUNT 385 K/MM3 (134-434); RBC 4.23 M/mm3 (4.00-5.60); RDW 12.9 % (11.9-15.9); WHITE BLOOD COUNT 7.5 K/mm3 (4.0-10.0)
[2018-04-30 07:49] LABS: ALBUMIN 2.5 g/dl (3.4-5.0); ANION GAP 8 MMOL/L (8-16); BLOOD UREA NITROGEN 7 mg/dL (7-18); CALCIUM 8.2 mg/dL (8.5-10.1); CHLORIDE 106 mmol/L (98-107); CO2 32 mmol/L (21-32); GLUCOSE,RANDOM 106 mg/dL (74-106); POTASSIUM 3.4 mmol/L (3.5-5.1); SODIUM 146 mmol/L (136-145)
[2018-04-30 07:52] LABS: ALK PHOS 131 U/L (45-117); BILIRUBIN,TOTAL 0.5 mg/dL (0.2-1.0); CREATININE 0.6 mg/dL (0.7-1.3); SGOT/AST 20 U/L (15-37); SGPT/ALT 23 U/L (12-78); TOT PROT 6.2 g/dl (6.4-8.2)
[2018-04-30] MEDS ORDERED: INSULIN (NOVOLOG) ASPART 100 UNITS/ML 10ML VIAL ONE (08:02)
[2018-04-30] MEDS ORDERED: PT OWN MED DRAWER 7, Y5N ONE ×3 (08:03→15:32)
[2018-04-30] MEDS: sitaGLIPtin PHOSPHATE 100 MG TABLET (FP) PO SCH (08:15)
[2018-04-30] MEDS: metFORMIN HCL 500 MG TABLET (FP) PO SCH ×2 (08:15→17:22)
[2018-04-30] MEDS: glipiZIDE 5 MG TABLET (FP) PO SCH ×3 (08:15→17:22)
[2018-04-30] MEDS: PANTOPRAZOLE 40 MG TABLET (FP) PO SCH (09:59)
--- NOTE | 2018-04-30 11:16 | DS ---
Physical Examination Vital Signs: Vital Signs Temperature 97.9 F 04/30/18 09:55 Pulse Rate 58 L 04/30/18 09:55 Respiratory Rate 18 04/30/18 09:55 Blood Pressure 138/70 04/30/18 09:55 O2 Sat by Pulse Oximetry (%) 96 04/29/18 21:00 Constitutional: Yes: Calm Cardiovascular: Yes: Regular Rate and Rhythm, S1, S2 Respiratory: Yes: CTA Bilaterally Gastrointestinal: Yes: Normal Bowel Sounds, Soft Wound/Incision: Yes: Dressing Dry and Intact (left foot wound covered in dressing), Other (left foot) Neurological: Yes: Alert, Oriented Labs: CBC, BMP 04/30/18 06:30 04/30/18 06:30 Discharge Summary Reason For Visit: CELLULITIS Current Active Problems Cellulitis (Acute) Diabetes (Acute) Diabetic foot infection (Acute) Hyperglycemia due to type 2 diabetes mellitus (Acute) Hypernatremia (Acute) Hypokalemia (Acute) Nausea & vomiting (Acute) Uncontrolled diabetes mellitus (Acute) Hospital Course: PCP: Dr. Armendariz, covered by Dr. Chang HISTORY OF PRESENT ILLNESS: 47 yr old man with NIDDM and HTN presented to ED with worsening left foot ulcer and erythema. Initially began as erythema with intact skin on Sunday(04/14), a/w with sharp pain from dorsum at ulcer site to toes intermittently, worse when weight bearing, a/w swelling. On Sunday he had 2 episodes of nonbloody watery emesis and increasing erythema in the left foot. he was evaluated in [facility] and discharged with levaquin po daily, he took it sun// evenings. Blisters developed and today they started to break with worsening erythema and swelling. denies fevers, chest pain, palpations, diarrhea, constipation. sunday morning he developed discomfort in the epigastrium, as if something was stuck there and he couldn't swallow it down, nonradiating, improved with sitting up. 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 ER course was notable for: (1) vanc + zosyn, cxy,, bld cx, foot xry (2) (3) Recent Travel:none PAST MEDICAL HISTORY: DM, diagnosed 1 yr ago. routinely follows with optho, no diabetic retinapothy \hospital course: Note: Operative Date: 04/21/18 Pre-Operative Diagnosis: abscess, cellulitis, necrotizing fasciitis Operation: Incison drainage 1,2,3,4 interspaces, 2 wound cultures, antibiotic irrigation 1800cc, / Iodoform packing Findings: foul smelling purulent and dark brown/black drainage Post-Operative Diagnosis: Same as Pre-op Surgeon: Darin Maldonado Watch Parts Inspector: Pacheco Rendon Anesthesiologist/SUPERCALENDER OPERATOR: Oleksandr Sales Anesthesia: Local, MAC Estimated Blood Loss (mls): 50 Instrument used (Debridements only): knife, pressure irrigation Drains & Tubes with Location: 08/30 plain packing iodoform Operative Report Dictated: No podiatry: Continue IVABX as per ID needs PICC or tunnel cath line to go home/ SNF. VNS for wound care at home. Will DC to home on abx as per Id drainage has ceased. Continue HBO upon DC. ID:plan to switch to iv rocephin and treat for 3 to 4 weeks with iv ceftriaxone 2 g daily and po flagyl 500 tid weekly labs while on iv antibiotics may need oral antibiotics as followup to iv we can see him when he comes to wound care to see podiatry to help with his antibiotic management repeat esr/crp in am, trending down DM: [id number] is 11 doesnot want insulin seen by endocrine- januvfred glucotrol and metfromin Condition: Improved - Instructions Referrals: Jez Armendariz MD, MD [Primary Care Provider] - Disposition: [facility] - Home Medications Comprehensive Discharge Medication List: Ambulatory Orders Metformin HCl [Metformin HCl ER] 500 mg PO DAILY 04/17/18 Sitagliptin Phosphate [Januvia -] 100 mg PO DAILY@0700 04/17/18 Acetaminophen [Tylenol .Regular Strength -] 650 mg PO Q6H PRN tablet 04/25/18 Ceftriaxone 2 gm-D5w Bag 2 gm IV DAILY #30 ml 04/25/18 Glipizide [Glucotrol -] 5 mg PO BID@0700,1630 tablet 04/25/18 Heparin - 5,000 unit SQ TID vial 04/25/18 Insulin Sliding Scale [Novolog Vial Sliding Scale -] 1 vial SQ HS units metroNIDAZOLE [Flagyl -] 500 mg PO TID #90 tablet 04/25/18
[2018-04-30] MEDS: SODIUM CHLORIDE 0.45%/POT 20 MEQ/1,000 ML INFUS.BAG IV SCH (11:55)
[2018-04-30] MEDS ORDERED: PICC LINE 8 ML FLUSH PROTOCOL IVPUSH PRN (12:08)
--- NOTE | 2018-04-30 16:07 | PN ---
Progress Note (short form) - Note Progress Note: Denies any complaints FS stable No hypos Vital Signs Period Temp Pulse Resp BP Sys/Muller Pulse Ox Last 24 Hr 97.7 F-98.4 F 58-72 18-18 127-144/63-81 96 PE: AOx3 Neck: Supple, No JVD HEENT: PERRL, EOMI Lungs: CTA CVS: S1S2 Abd: Benign EXt: left foot dressing Neuro: No focal deficit CMP Sodium 146 mmol/L (136-145) H 04/30/18 06:30 Potassium 3.4 mmol/L (3.5-5.1) L 04/30/18 06:30 Chloride 106 mmol/L (98-107) 04/30/18 06:30 Carbon Dioxide 32 mmol/L (21-32) 04/30/18 06:30 Anion Gap 8 MMOL/L (8-16) 04/30/18 06:30 BUN 7 mg/dL (7-18) 04/30/18 06:30 Creatinine 0.6 mg/dL (0.7-1.3) L 04/30/18 06:30 Creat Clearance w eGFR > 60 (>60) 04/30/18 06:30 POC Glucometer 104 UNITS (80-120) 04/30/18 11:55 Random Glucose 106 mg/dL (74-106) 04/30/18 06:30 Hemoglobin A1c % 11.0 % (4.8-6.0) H 04/21/18 00:00 Lactic Acid 1.3 mmol/L (0.0-2.0) 04/20/18 23:59 Calcium 8.2 mg/dL (8.5-10.1) L 04/30/18 06:30 Phosphorus 2.4 mg/dL (2.5-4.9) L 04/21/18 06:00 Magnesium 2.0 mg/dL (1.8-2.4) 04/22/18 06:15 Total Bilirubin 0.5 mg/dL (0.2-1.0) 04/30/18 06:30 AST 20 U/L (15-37) 04/30/18 06:30 ALT 23 U/L (12-78) 04/30/18 06:30 Alkaline Phosphatase 131 U/L (45-117) H D 04/30/18 06:30 Troponin I < 0.02 ng/ml (0.00-0.05) 04/20/18 23:59 C-Reactive Protein 0.8 MG/DL (0.00-0.3) H 04/30/18 06:30 Total Protein 6.2 g/dl (6.4-8.2) L 04/30/18 06:30 Albumin 2.5 g/dl (3.4-5.0) L 04/30/18 06:30 Triglycerides 114 mg/dL (35-160) 04/21/18 06:00 Cholesterol 154 mg/dL (50-200) 04/21/18 06:00 Total LDL Cholesterol 115 mg/dL (5-100) H 04/21/18 06:00 HDL Cholesterol 29 mg/dL (40-60) L 04/21/18 06:00 Total Amylase 31 U/L (25-115) 04/26/18 12:30 Lipase 103 U/L (73-393) 04/26/18 12:30 Current Medications Generic Name Dose Route Start Last Admin Trade Name Freq PRN Reason Stop Dose Admin Acetaminophen 650 mg 04/25/18 13:37 Tylenol - PO Q6H PRN FEVER Atorvastatin Calcium 20 mg 04/27/18 22:00 04/29/18 21:57 Lipitor - PO 20 mg HS JAGUAR Administration Glipizide 2.5 mg 04/29/18 16:30 04/30/18 12:00 Glucotrol - PO 2.5 mg TIDAC JAGUAR Administration Heparin Sodium (Porcine) 5,000 unit 04/25/18 14:00 04/30/18 15:59 Heparin - SQ 5,000 unit TID JAGUAR Administration IV Flush 8 ml 04/30/18 12:08 Picc Line Flush IVPUSH PRN PRN Protocol Ampicillin Sodium/Sulbactam 100 mls @ 200 mls/hr 04/25/18 15:00 04/30/18 15: 59 Sodium 3 gm/ Sodium Chloride IVPB 200 mls/hr Q6H-IV JAGUAR Administration Potassium Chloride/Sodium Chloride 20 meq in 1,000 mls @ 100 mls/hr 04/28/18 10:00 04/30/18 11:55 1/2ns+20meq Kcl IV 100 mls/hr ASDIR JAGUAR Administration Insulin Aspart 1 vial 04/25/18 22:00 04/29/18 21:58 Novolog Vial Sliding Scale - SQ Not Given HS [facility] Protocol Insulin Aspart 1 vial 04/29/18 13:52 04/30/18 12:00 Novolog Vial Sliding Scale - SQ Not Given TIDAC [facility] Protocol Metformin HCl 500 mg 04/28/18 16:30 04/30/18 08:15 Glucophage - PO 500 mg BID@0700,1630 JAGUAR Administration Ondansetron HCl 4 mg 04/28/18 11:00 04/30/18 11:59 Zofran - PO 4 mg TIDAC JAGUAR Administration Pantoprazole Sodium 40 mg 04/28/18 10:00 04/30/18 09:59 Protonix - PO 40 mg DAILY JAGUAR Administration Sitagliptin Phosphate 100 mg 04/26/18 07:00 04/30/18 08:15 Januvia - PO 100 mg DAILY@0700 JAGUAR Administration AP: Left foot Infection s/P debridement T2DM Uncontrolled: A1c 11.0 Blood sugar stable BGM QACHS Novolog SS coverage Januvia 100mg QD Metformin 500mg BID Glipizide 2.5mg TID premeals Risk of hypoglycemia with Glipizide and need to eat within 15 to 30 minutes of taking the medication discussed. Pt verbalizes understanding. Pt doesn't want to take Insulin as outpatient. Abx Local wound care F/U in office in one week. Will F/u Problem List - Problems (1) Cellulitis Code(s): L03.90 - CELLULITIS, UNSPECIFIED Qualifiers: Site of cellulitis: extremity Site of cellulitis of extremity: lower extremity Laterality: left Qualified Code(s): L03.116 - Cellulitis of left lower limb (2) Diabetes Code(s): E11.9 - TYPE 2 DIABETES MELLITUS WITHOUT COMPLICATIONS (3) Diabetic foot infection Code(s): E11.628 - TYPE 2 DIABETES MELLITUS WITH OTHER SKIN COMPLICATIONS; L08.9 - LOCAL INFECTION OF THE SKIN AND SUBCUTANEOUS TISSUE, UNSP
--- NOTE | 2018-04-30 16:28 | PN ---
Progress Note (short form) - Note Progress Note: POD#5 left foot. vss, tmax 97.9 No pain. dressing intact, wbc=7.5 -drainage -edema, -mal odor, +necrosis central wound area of skin island created from I&D, +granulation normal post op Betadine irrigation and dressing change done.. Measurements of wound given to RN for VNS. Patient got his PICC line. VNS for wound care at home. HBO upon DC starting tomorrow. patient to follow in wound care center. Patient fully understands all risks benefits and alternatives.
[2018-04-30 18:09] VITALS: BP 155/76; PULSE 58; TEMP 98
== END 2018-04-30 18:40 | disposition home or self-care (01) | DRG 622 ==
LOC: JER 22:40 → JERBED 04-21 01:25 → J5S 04-21 03:31
PROVIDERS: ADMIT Family Medicine; ATTEND Family Medicine
PROC: 0J9R0ZZ Drainage of Left Foot Subcutaneous Tissue and Fascia, Open Approach (ICD-10-PCS; 2018-04-21)
PROC: 0JBR0ZZ Excision of Left Foot Subcutaneous Tissue and Fascia, Open Approach (ICD-10-PCS; principal; 2018-04-24)
PROC: 0J9R0ZZ Drainage of Left Foot Subcutaneous Tissue and Fascia, Open Approach (ICD-10-PCS; 2018-04-24)
PROC: 02HV33Z Insertion of Infusion Device into Superior Vena Cava, Percutaneous Approach (ICD-10-PCS; 2018-04-30)
DX: E11.621 Type 2 diabetes mellitus with foot ulcer (principal); M72.6 Necrotizing fasciitis; L97.429 Non-pressure chronic ulcer of left heel and midfoot with unspecified severity; L03.116 Cellulitis of left lower limb; E87.0 Hyperosmolality and hypernatremia; I10 Essential (primary) hypertension; E11.65 Type 2 diabetes mellitus with hyperglycemia; E87.6 Hypokalemia; R11.2 Nausea with vomiting, unspecified; Z79.4 Long term (current) use of insulin
CPT/HCPCS: 36415; 36569; 71045-TC-FY; 73630-TC-LT; 73718-LT; 77001-TC-FY; 80053; 80061; 81003; 81015; 82150; 82962; 83036; 83605; 83690; 83721; 83735; 84100; 84484; 85025; 85027; 85610; 85651; 85730; 86140; 86850; 86900; 86901; 87040; 87070; 87077; 87081; 87186; 87205; 87389; 88304-TC; 93005; 93010; 93971-TC; 94760; 97116-GP; 97161-GP; 99284-25; C1751; G0277; G0480; J0131; J1644; J3480; J7030

== ENCOUNTER 2020-09-10 12:01 | Inpatient (IN) | payer OTHER ==
[2020-09-10] MEDS ORDERED: SODIUM CHLORIDE 2,858 ML IV ONE (12:49)
[2020-09-10 13:43] LABS: BASO % 0.3 % (0-2.0); EOS % 1.1 % (0-4.5); HEMATOCRIT 41.9 % (35.4-49); HEMOGLOBIN 14.2 GM/dL (11.7-16.9); LYMPH % 8.3 % (8-40); MCH 27.5 pg (25.7-33.7); MCHC 33.8 g/dl (32.0-35.9); MEAN CELL VOLUME 81.4 fl (80-96); MEAN PLT VOLUME 8.1 fl (7.5-11.1); MONO % 5.1 % (3.8-10.2); NEUT % 85.2 % (42.8-82.8); PLATELET COUNT 486 K/MM3 (134-434); RBC 5.14 M/mm3 (4.00-5.60); RDW 13.1 % (11.9-15.9)
[2020-09-10 13:55] LABS: INR 1.29 (0.83-1.09); PROTHROMBIN TIME (PATIENT) 15.5 SEC (9.7-13.0)
[2020-09-10 13:57] LABS: ACTIVATED PTT 50.8 SECONDS (25.2-36.5)
[2020-09-10 14:02] LABS: CHLORIDE 99 mmol/L (98-107); POTASSIUM 4.2 mmol/L (3.5-5.1); SODIUM 136 mmol/L (136-145)
[2020-09-10 14:03] LABS: ALBUMIN 2.6 g/dl (3.4-5.0); ANION GAP 9 MMOL/L (8-16); BLOOD UREA NITROGEN 10.9 mg/dL (7-18); CALCIUM 8.9 mg/dL (8.5-10.1); CO2 28 mmol/L (21-32); GLUCOSE,RANDOM 238 mg/dL (74-106)
[2020-09-10 14:06] LABS: CREATININE 0.6 mg/dL (0.55-1.3); SGOT/AST 15 U/L (15-37); SGPT/ALT 18 U/L (13-61)
[2020-09-10 14:08] LABS: TOT PROT 7.4 g/dl (6.4-8.2)
[2020-09-10 14:10] LABS: ALK PHOS 200 U/L (45-117)
[2020-09-10 14:15] LABS: BILIRUBIN,TOTAL 0.8 mg/dL (0.2-1)
[2020-09-10] MEDS ORDERED: PIPERACILLIN/TAZOB 3.375 GM 3.375 GM in DEXTROSE 5%-WATER - 50 ML IVPB ONE (15:04)
[2020-09-10] MEDS ORDERED: VANCOMYCIN 1 GM in D5W (PRE-DOCKED) 1,000 MG/250 ML IVPB ONE (15:04)
[2020-09-10] MEDS ORDERED: SODIUM CHLORIDE 0.45% 1,000 ML IV SCH ×2 (17:00→21:15)
[2020-09-10] MEDS ORDERED: LABETALOL HCL 5 MG/1 ML (200MG/40ML VIAL) IVPB ONE (17:02)
[2020-09-10] MEDS ORDERED: VANCOMYCIN 1 GRAM (PRE-DOCKED) 1,000 MG/250 ML BAG IVPB ONE (17:14)
[2020-09-10] MEDS ORDERED: PIPERACILLIN/TAZOB 3.375 GM 3.375 GM/50 ML BAG IVPB ONE (17:14)
[2020-09-10] MEDS ORDERED: BACITRACIN 50,000 UNITS VIAL TP ONE (18:15)
[2020-09-10] MEDS ORDERED: VANCOMYCIN 1,000 MG VIAL (RESTRICTED TO ID ONLY) IVPB ONE (18:25)
[2020-09-10] MEDS ORDERED: VANCOMYCIN 1,000 MG VIAL (RESTRICTED TO ID ONLY) ONE (19:14)
[2020-09-10] MEDS ORDERED: SUCCINYLCHOLINE CHLORIDE 200 MG/10 ML SYRINGE ONE (19:15)
[2020-09-10] MEDS ORDERED: PROPOFOL 20 ML ONE ×2 (19:15→20:12)
[2020-09-10] MEDS ORDERED: SODIUM CHLORIDE 0.9% P/F 10 ML VIAL IJ ONE (19:18)
[2020-09-10] MEDS ORDERED: DEXAMETHASONE SOD PHOSPHATE 4 MG/1 ML VIAL ONE (20:01)
[2020-09-10] MEDS: INSULIN SLIDING SCALE (NOVOLOG) 1 VIAL SQ SCH (21:30)
[2020-09-10 21:53] LABS: BASO % 0.6 % (0-2.0); EOS % 0.7 % (0-4.5); HEMATOCRIT 34.7 % (35.4-49); HEMOGLOBIN 11.4 GM/dL (11.7-16.9); LYMPH % 6.4 % (8-40); MCH 26.9 pg (25.7-33.7); MCHC 32.8 g/dl (32.0-35.9); MEAN CELL VOLUME 81.9 fl (80-96); MONO % 5.1 % (3.8-10.2); NEUT % 87.2 % (42.8-82.8); PLATELET COUNT 424 K/MM3 (134-434); RBC 4.24 M/mm3 (4.00-5.60); WHITE BLOOD COUNT 11.6 K/mm3 (4.0-10.0)
[2020-09-10] MEDS ORDERED: INSULIN SLIDING SCALE (NOVOLOG) 1 VIAL SQ SCH (22:00)
[2020-09-10] MEDS ORDERED: PIPERACILLIN/TAZOB 3.375 GM 3.375 GM in DEXTROSE 5%-WATER - 50 ML IVPB SCH (22:00)
[2020-09-10 22:40] LABS: ANISOCYTOSIS 0; MACROCYTOSIS 1+; PLATELET ESTIMATE NORMAL; TARGET CELLS 0
[2020-09-11] MEDS ORDERED: DEXTROSE 5%-WATER - 50 ML IVPB ONE ×3 (01:24→16:55)
[2020-09-11] MEDS ORDERED: PIPERACILLIN/TAZOBACTAM 3.375 GM VIAL IVPB ONE ×3 (01:24→16:55)
[2020-09-11] MEDS: LACTATED RINGERS SOLUTION 1,000 ML IV SCH (01:55)
[2020-09-11] MEDS: PIPERACILLIN/TAZOB 3.375 GM 3.375 GM in DEXTROSE 5%-WATER - 50 ML IVPB SCH ×3 (01:55→17:03)
[2020-09-11] MEDS ORDERED: PIPERACILLIN/TAZOB 3.375 GM 3.375 GM in DEXTROSE 5%-WATER - 50 ML IVPB SCH (02:00)
[2020-09-11] MEDS ORDERED: PT OWN MED DRAWER 7, Y5N ONE ×2 (03:49→09:31)
[2020-09-11] MEDS ORDERED: VANCOMYCIN 1 GM in D5W (PRE-DOCKED) 1,000 MG/250 ML IVPB SCH (06:00)
[2020-09-11] MEDS: VANCOMYCIN 1 GM in D5W (PRE-DOCKED) 1,000 MG/250 ML IVPB SCH ×2 (06:41→17:04)
[2020-09-11] MEDS: INSULIN SLIDING SCALE (NOVOLOG) 1 VIAL SQ SCH ×4 (06:50→22:06)
[2020-09-11 07:17] LABS: HEMATOCRIT 35.7 % (35.4-49); MCH 27.4 pg (25.7-33.7); MCHC 33.5 g/dl (32.0-35.9); MEAN CELL VOLUME 81.8 fl (80-96); MEAN PLT VOLUME 7.9 fl (7.5-11.1); PLATELET COUNT 467 K/MM3 (134-434); RBC 4.37 M/mm3 (4.00-5.60); WHITE BLOOD COUNT 13.5 K/mm3 (4.0-10.0)
[2020-09-11 07:47] LABS: POTASSIUM 4.7 mmol/L (3.5-5.1)
[2020-09-11 08:00] LABS: BLOOD UREA NITROGEN 7.7 mg/dL (7-18); CALCIUM 8.2 mg/dL (8.5-10.1)
[2020-09-11 08:03] LABS: CREATININE 0.6 mg/dL (0.55-1.3); PHOSPHOROUS 3.1 mg/dL (2.5-4.9)
[2020-09-11 10:02] LABS: BASO % 0.3 % (0-2.0); EOS % 0.1 % (0-4.5); HEMATOCRIT 35.7 % (35.4-49); HEMOGLOBIN 11.7 GM/dL (11.7-16.9); LYMPH % 5.2 % (8-40); MCHC 32.7 g/dl (32.0-35.9); MEAN CELL VOLUME 82.6 fl (80-96); MEAN PLT VOLUME 8.3 fl (7.5-11.1); MONO % 5.2 % (3.8-10.2); NEUT % 89.2 % (42.8-82.8); PLATELET COUNT 441 K/MM3 (134-434); RBC 4.33 M/mm3 (4.00-5.60); RDW 13.1 % (11.9-15.9); WHITE BLOOD COUNT 13.5 K/mm3 (4.0-10.0)
[2020-09-11] MEDS: INSULIN (LEVEMIR) 100 UNITS/ML UNITS SQ SCH ×2 (10:05→22:05)
[2020-09-11] MEDS: ATORVASTATIN CA 40 MG TABLET (FP) PO SCH (22:04)
[2020-09-12] MEDS ORDERED: PIPERACILLIN/TAZOBACTAM 3.375 GM VIAL IVPB ONE ×3 (00:52→16:04)
[2020-09-12] MEDS ORDERED: DEXTROSE 5%-WATER - 50 ML IVPB ONE ×3 (00:52→16:04)
[2020-09-12] MEDS: PIPERACILLIN/TAZOB 3.375 GM 3.375 GM in DEXTROSE 5%-WATER - 50 ML IVPB SCH ×3 (01:04→17:34)
[2020-09-12] MEDS: VANCOMYCIN 1 GM in D5W (PRE-DOCKED) 1,000 MG/250 ML IVPB SCH ×2 (05:09→17:34)
[2020-09-12] MEDS: INSULIN (LEVEMIR) 100 UNITS/ML UNITS SQ SCH ×2 (06:16→22:00)
[2020-09-12] MEDS: INSULIN SLIDING SCALE (NOVOLOG) 1 VIAL SQ SCH ×4 (06:18→21:55)
[2020-09-12 08:41] LABS: BASO % 0.5 % (0-2.0); EOS % 2.7 % (0-4.5); HEMOGLOBIN 11.4 GM/dL (11.7-16.9); MCH 27.4 pg (25.7-33.7); MCHC 33.4 g/dl (32.0-35.9); MEAN CELL VOLUME 81.8 fl (80-96); MEAN PLT VOLUME 8.1 fl (7.5-11.1); MONO % 6.1 % (3.8-10.2); NEUT % 75.7 % (42.8-82.8); PLATELET COUNT 431 K/MM3 (134-434); RBC 4.15 M/mm3 (4.00-5.60); WHITE BLOOD COUNT 7.9 K/mm3 (4.0-10.0)
[2020-09-12 09:46] LABS: ANISOCYTOSIS 1+; MACROCYTOSIS 0; PLATELET ESTIMATE NORMAL
[2020-09-12 13:29] LABS: ALBUMIN 2.6 g/dl (3.4-5.0)
[2020-09-12 13:33] LABS: CREATININE 1.1 mg/dL (0.55-1.3)
[2020-09-12 13:34] LABS: BILIRUBIN,TOTAL 0.6 mg/dL (0.2-1)
[2020-09-12] MEDS: LACTATED RINGERS SOLUTION 1,000 ML IV SCH ×2 (22:00→22:01)
[2020-09-12] MEDS: ATORVASTATIN CA 40 MG TABLET (FP) PO SCH (22:01)
[2020-09-13] MEDS ORDERED: PIPERACILLIN/TAZOBACTAM 3.375 GM VIAL IVPB ONE ×3 (01:07→20:58)
[2020-09-13] MEDS ORDERED: DEXTROSE 5%-WATER - 50 ML IVPB ONE ×3 (01:08→20:58)
[2020-09-13] MEDS: PIPERACILLIN/TAZOB 3.375 GM 3.375 GM in DEXTROSE 5%-WATER - 50 ML IVPB SCH ×3 (01:21→21:19)
[2020-09-13] MEDS ORDERED: ONDANSETRON 4 MG/2 ML VIAL IVPUSH ONE (02:39)
[2020-09-13] MEDS: VANCOMYCIN 1 GM in D5W (PRE-DOCKED) 1,000 MG/250 ML IVPB SCH (06:16)
[2020-09-13] MEDS: INSULIN (LEVEMIR) 100 UNITS/ML UNITS SQ SCH ×2 (06:16→21:21)
[2020-09-13] MEDS: INSULIN SLIDING SCALE (NOVOLOG) 1 VIAL SQ SCH ×4 (06:17→21:20)
[2020-09-13 08:21] LABS: BASO % 0.2 % (0-2.0); EOS % 0.3 % (0-4.5); HEMATOCRIT 36.9 % (35.4-49); HEMOGLOBIN 12.5 GM/dL (11.7-16.9); LYMPH % 3.9 % (8-40); MCH 27.5 pg (25.7-33.7); MCHC 33.8 g/dl (32.0-35.9); MEAN CELL VOLUME 81.5 fl (80-96); MEAN PLT VOLUME 7.8 fl (7.5-11.1); MONO % 2.9 % (3.8-10.2); NEUT % 92.7 % (42.8-82.8); PLATELET COUNT 424 K/MM3 (134-434); RBC 4.53 M/mm3 (4.00-5.60); RDW 12.9 % (11.9-15.9); WHITE BLOOD COUNT 10.2 K/mm3 (4.0-10.0)
[2020-09-13 08:47] LABS: POTASSIUM 4.7 mmol/L (3.5-5.1)
[2020-09-13 08:55] LABS: ALBUMIN 2.2 g/dl (3.4-5.0); CALCIUM 8.3 mg/dL (8.5-10.1)
[2020-09-13 08:56] LABS: BLOOD UREA NITROGEN 21.6 mg/dL (7-18)
[2020-09-13 08:59] LABS: CREATININE 2.7 mg/dL (0.55-1.3)
[2020-09-13] MEDS ORDERED: INSULIN (LEVEMIR) 100 UNITS/ML UNITS SQ SCH (10:00)
[2020-09-13] MEDS: Insulin (LOG) Aspart 100 UNITS/ML VIAL SQ SCH ×2 (10:54→16:34)
[2020-09-13 11:36] LABS: ANISOCYTOSIS 0; MACROCYTOSIS 0; PLATELET ESTIMATE NORMAL
[2020-09-13] MEDS: ONDANSETRON 4 MG/2 ML VIAL IVPUSH PRN (14:20)
[2020-09-13 19:28] LABS: URINE APPEARANCE CLEAR; URINE BILIRUBIN NEGATIVE (NEGATIVE); URINE COLOR YELLOW; URINE GLUCOSE (UA) NEGATIVE (NEGATIVE); URINE KETONE NEGATIVE (NEGATIVE); URINE LEUK ESTERASE NEGATIVE (NEGATIVE); URINE NITRITE NEGATIVE (NEGATIVE); URINE PROTEIN NEGATIVE (NEGATIVE); URINE UROBILINOGEN 0.2 mg/dL (0.2-1.0)
[2020-09-13] MEDS: HEPARIN NA (PORCINE) 5,000 UNITS/ML 1ML VIAL SQ SCH (21:20)
[2020-09-13] MEDS: LACTATED RINGERS SOLUTION 1,000 ML IV SCH (21:20)
[2020-09-13] MEDS: ATORVASTATIN CA 40 MG TABLET (FP) PO SCH (21:20)
[2020-09-14] MEDS: ONDANSETRON 4 MG/2 ML VIAL IVPUSH PRN ×3 (06:17→22:46)
[2020-09-14] MEDS: LACTATED RINGERS SOLUTION 1,000 ML IV SCH ×3 (06:17→21:20)
[2020-09-14] MEDS: Insulin (LOG) Aspart 100 UNITS/ML VIAL SQ SCH ×3 (06:18→16:44)
[2020-09-14] MEDS: INSULIN SLIDING SCALE (NOVOLOG) 1 VIAL SQ SCH ×4 (06:18→21:21)
[2020-09-14] MEDS: INSULIN (LEVEMIR) 100 UNITS/ML UNITS SQ SCH ×2 (06:19→22:47)
[2020-09-14 07:53] LABS: BASO % 0.4 % (0-2.0); EOS % 0.5 % (0-4.5); HEMOGLOBIN 11.6 GM/dL (11.7-16.9); LYMPH % 6.5 % (8-40); MCH 27.2 pg (25.7-33.7); MCHC 33.1 g/dl (32.0-35.9); MEAN PLT VOLUME 7.6 fl (7.5-11.1); NEUT % 86.6 % (42.8-82.8); PLATELET COUNT 408 K/MM3 (134-434); RBC 4.27 M/mm3 (4.00-5.60); RDW 13.1 % (11.9-15.9); WHITE BLOOD COUNT 10.8 K/mm3 (4.0-10.0)
[2020-09-14 08:40] LABS: ALBUMIN 2.1 g/dl (3.4-5.0); BLOOD UREA NITROGEN 29.2 mg/dL (7-18); CALCIUM 8.2 mg/dL (8.5-10.1); POTASSIUM 4.1 mmol/L (3.5-5.1)
[2020-09-14 08:44] LABS: CREATININE 3.9 mg/dL (0.55-1.3)
[2020-09-14 08:45] LABS: BILIRUBIN,TOTAL 0.5 mg/dL (0.2-1); TOT PROT 5.7 g/dl (6.4-8.2)
[2020-09-14] MEDS ORDERED: DEXTROSE 5%-WATER - 50 ML IVPB ONE ×2 (09:02→20:46)
[2020-09-14] MEDS ORDERED: PIPERACILLIN/TAZOBACTAM 3.375 GM VIAL IVPB ONE ×2 (09:02→20:46)
[2020-09-14] MEDS: PIPERACILLIN/TAZOB 3.375 GM 3.375 GM in DEXTROSE 5%-WATER - 50 ML IVPB SCH ×2 (09:05→21:23)
[2020-09-14] MEDS: HEPARIN NA (PORCINE) 5,000 UNITS/ML 1ML VIAL SQ SCH ×2 (09:06→21:23)
[2020-09-14] MEDS ORDERED: PT OWN MED DRAWER 7, Y5N ONE (11:17)
[2020-09-14] MEDS ORDERED: INSULIN (NOVOLOG) ASPART 100 UNITS/ML 10ML VIAL ONE ×2 (11:17→20:46)
[2020-09-14] MEDS: ATORVASTATIN CA 40 MG TABLET (FP) PO SCH (22:47)
[2020-09-15] MEDS: Insulin (LOG) Aspart 100 UNITS/ML VIAL SQ SCH ×3 (06:01→16:21)
[2020-09-15] MEDS: INSULIN SLIDING SCALE (NOVOLOG) 1 VIAL SQ SCH ×4 (06:01→21:08)
[2020-09-15] MEDS: INSULIN (LEVEMIR) 100 UNITS/ML UNITS SQ SCH ×2 (06:02→21:10)
[2020-09-15 07:08] LABS: BASO % 0.3 % (0-2.0); EOS % 0.5 % (0-4.5); HEMATOCRIT 34.4 % (35.4-49); HEMOGLOBIN 11.5 GM/dL (11.7-16.9); LYMPH % 7.9 % (8-40); MCH 27.3 pg (25.7-33.7); MCHC 33.4 g/dl (32.0-35.9); MEAN CELL VOLUME 81.8 fl (80-96); MEAN PLT VOLUME 7.8 fl (7.5-11.1); MONO % 6.3 % (3.8-10.2); PLATELET COUNT 404 K/MM3 (134-434); RBC 4.21 M/mm3 (4.00-5.60); RDW 13.2 % (11.9-15.9); WHITE BLOOD COUNT 10.1 K/mm3 (4.0-10.0)
[2020-09-15] MEDS: LACTATED RINGERS SOLUTION 1,000 ML IV SCH (07:16)
[2020-09-15 07:32] LABS: POTASSIUM 4.1 mmol/L (3.5-5.1)
[2020-09-15 07:37] LABS: BLOOD UREA NITROGEN 33.8 mg/dL (7-18)
[2020-09-15 07:39] LABS: CALCIUM 8.2 mg/dL (8.5-10.1)
[2020-09-15 07:40] LABS: CREATININE 4.2 mg/dL (0.55-1.3); MAGNESIUM 2.2 mg/dL (1.8-2.4); PHOSPHOROUS 5.5 mg/dL (2.5-4.9)
[2020-09-15] MEDS ORDERED: DEXTROSE 5%-WATER - 50 ML IVPB ONE ×2 (09:01→09:58)
[2020-09-15] MEDS ORDERED: PIPERACILLIN/TAZOBACTAM 3.375 GM VIAL IVPB ONE (09:01)
[2020-09-15] MEDS: HEPARIN NA (PORCINE) 5,000 UNITS/ML 1ML VIAL SQ SCH ×2 (09:22→21:10)
[2020-09-15] MEDS: PIPERACILLIN/TAZOB 3.375 GM 3.375 GM in DEXTROSE 5%-WATER - 50 ML IVPB SCH (09:22)
[2020-09-15] MEDS ORDERED: cefTRIAXone SODIUM 1 GM VIAL ONE (09:57)
[2020-09-15] MEDS: CEFTRIAXONE 1 GM in DEXTROSE 5%-WATER - 50 ML IVPB SCH (10:08)
[2020-09-15] MEDS ORDERED: INSULIN (NOVOLOG) ASPART 100 UNITS/ML 10ML VIAL ONE ×2 (11:08→20:48)
[2020-09-15] MEDS: SODIUM CHLORIDE 0.45% 1,000 ML IV SCH (16:19)
[2020-09-15] MEDS: ONDANSETRON 4 MG/2 ML VIAL IVPUSH PRN (21:10)
[2020-09-15] MEDS: ATORVASTATIN CA 40 MG TABLET (FP) PO SCH (21:10)
[2020-09-15 23:24] LABS: PH,URINE 6.5 (5.0-8.0); URINE APPEARANCE CLEAR; URINE BILIRUBIN NEGATIVE (NEGATIVE); URINE COLOR YELLOW; URINE GLUCOSE (UA) NEGATIVE (NEGATIVE); URINE KETONE NEGATIVE (NEGATIVE); URINE LEUK ESTERASE NEGATIVE (NEGATIVE); URINE NITRITE NEGATIVE (NEGATIVE); URINE PROTEIN NEGATIVE (NEGATIVE); URINE UROBILINOGEN 0.2 mg/dL (0.2-1.0)
[2020-09-16] MEDS: SODIUM CHLORIDE 0.45% 1,000 ML IV SCH ×3 (02:16→22:52)
[2020-09-16] MEDS ORDERED: PT OWN MED DRAWER 7, Y5N ONE (06:07)
[2020-09-16] MEDS: Insulin (LOG) Aspart 100 UNITS/ML VIAL SQ SCH ×2 (06:39→12:01)
[2020-09-16] MEDS: INSULIN (LEVEMIR) 100 UNITS/ML UNITS SQ SCH ×2 (06:39→21:52)
[2020-09-16] MEDS: INSULIN SLIDING SCALE (NOVOLOG) 1 VIAL SQ SCH ×4 (06:40→21:52)
[2020-09-16 08:24] LABS: BASO % 0.3 % (0-2.0); EOS % 0.5 % (0-4.5); HEMATOCRIT 33.7 % (35.4-49); HEMOGLOBIN 11.2 GM/dL (11.7-16.9); MCH 27.2 pg (25.7-33.7); MCHC 33.2 g/dl (32.0-35.9); MEAN CELL VOLUME 81.8 fl (80-96); MEAN PLT VOLUME 7.9 fl (7.5-11.1); MONO % 6.8 % (3.8-10.2); NEUT % 85.4 % (42.8-82.8); PLATELET COUNT 389 K/MM3 (134-434); RBC 4.12 M/mm3 (4.00-5.60); RDW 13.2 % (11.9-15.9); WHITE BLOOD COUNT 9.7 K/mm3 (4.0-10.0)
[2020-09-16 08:35] LABS: CALCIUM 8.2 mg/dL (8.5-10.1)
[2020-09-16 08:36] LABS: MAGNESIUM 2.2 mg/dL (1.8-2.4)
[2020-09-16 08:39] LABS: CREATININE 4.4 mg/dL (0.55-1.3)
[2020-09-16 08:40] LABS: PHOSPHOROUS 5.2 mg/dL (2.5-4.9)
[2020-09-16] MEDS ORDERED: DEXTROSE 5%-WATER - 50 ML IVPB ONE (10:04)
[2020-09-16] MEDS ORDERED: cefTRIAXone SODIUM 1 GM VIAL ONE (10:04)
[2020-09-16] MEDS: CEFTRIAXONE 1 GM in DEXTROSE 5%-WATER - 50 ML IVPB SCH (10:44)
[2020-09-16] MEDS: HEPARIN NA (PORCINE) 5,000 UNITS/ML 1ML VIAL SQ SCH ×2 (10:45→21:52)
[2020-09-16] MEDS: ONDANSETRON 4 MG/2 ML VIAL IVPUSH PRN (18:15)
[2020-09-16] MEDS: ATORVASTATIN CA 40 MG TABLET (FP) PO SCH (21:51)
[2020-09-17] MEDS: INSULIN SLIDING SCALE (NOVOLOG) 1 VIAL SQ SCH ×4 (06:02→21:47)
[2020-09-17] MEDS: INSULIN (LEVEMIR) 100 UNITS/ML UNITS SQ SCH ×2 (06:02→21:46)
[2020-09-17] MEDS ORDERED: INSULIN (NOVOLOG) ASPART 100 UNITS/ML 10ML VIAL ONE ×2 (07:03→21:00)
[2020-09-17] MEDS ORDERED: INSULIN (LEVEMIR) 100 UNITS/ML UNITS SQ SCH (08:29)
[2020-09-17 08:33] LABS: BASO % 0.7 % (0-2.0); EOS % 1.5 % (0-4.5); HEMOGLOBIN 11.6 GM/dL (11.7-16.9); LYMPH % 7.3 % (8-40); MCH 27.1 pg (25.7-33.7); MEAN CELL VOLUME 81.9 fl (80-96); MEAN PLT VOLUME 8.2 fl (7.5-11.1); MONO % 6.8 % (3.8-10.2); NEUT % 83.7 % (42.8-82.8); PLATELET COUNT 393 K/MM3 (134-434); RBC 4.28 M/mm3 (4.00-5.60); RDW 13.4 % (11.9-15.9); WHITE BLOOD COUNT 10.1 K/mm3 (4.0-10.0)
[2020-09-17 08:58] LABS: POTASSIUM 4.3 mmol/L (3.5-5.1)
[2020-09-17 09:05] LABS: BLOOD UREA NITROGEN 34.4 mg/dL (7-18); MAGNESIUM 2.2 mg/dL (1.8-2.4)
[2020-09-17 09:08] LABS: CREATININE 4.2 mg/dL (0.55-1.3)
[2020-09-17 09:09] LABS: PHOSPHOROUS 4.9 mg/dL (2.5-4.9)
[2020-09-17] MEDS ORDERED: cefTRIAXone SODIUM 1 GM VIAL ONE (09:09)
[2020-09-17] MEDS ORDERED: DEXTROSE 5%-WATER - 50 ML IVPB ONE (09:10)
[2020-09-17] MEDS: SODIUM CHLORIDE 0.45% 1,000 ML IV SCH ×3 (09:55→19:07)
[2020-09-17] MEDS: CEFTRIAXONE 1 GM in DEXTROSE 5%-WATER - 50 ML IVPB SCH (09:56)
[2020-09-17] MEDS: HEPARIN NA (PORCINE) 5,000 UNITS/ML 1ML VIAL SQ SCH ×2 (09:57→21:42)
[2020-09-17 15:20] VITALS: BMI 37.2
[2020-09-17] MEDS: BANATROL PLUS POWDER PACKET PO SCH (21:42)
[2020-09-17] MEDS: ATORVASTATIN CA 40 MG TABLET (FP) PO SCH (21:42)
[2020-09-18] MEDS: SODIUM CHLORIDE 0.45% 1,000 ML IV SCH ×2 (04:52→16:44)
[2020-09-18] MEDS: INSULIN (LEVEMIR) 100 UNITS/ML UNITS SQ SCH ×2 (06:24→21:23)
[2020-09-18] MEDS: BANATROL PLUS POWDER PACKET PO SCH ×3 (06:24→21:22)
[2020-09-18] MEDS: INSULIN SLIDING SCALE (NOVOLOG) 1 VIAL SQ SCH ×4 (06:25→21:23)
[2020-09-18] MEDS ORDERED: INSULIN (NOVOLOG) ASPART 100 UNITS/ML 10ML VIAL ONE ×2 (06:56→20:54)
[2020-09-18] MEDS ORDERED: DEXTROSE 5%-WATER - 50 ML IVPB ONE (08:44)
[2020-09-18] MEDS ORDERED: cefTRIAXone SODIUM 1 GM VIAL ONE (08:44)
[2020-09-18] MEDS: CEFTRIAXONE 1 GM in DEXTROSE 5%-WATER - 50 ML IVPB SCH (09:27)
[2020-09-18] MEDS: HEPARIN NA (PORCINE) 5,000 UNITS/ML 1ML VIAL SQ SCH ×2 (09:27→21:20)
[2020-09-18] MEDS ORDERED: PT OWN MED DRAWER 7, Y5N ONE ×2 (13:26→20:55)
[2020-09-18 18:05] LABS: POTASSIUM 4.3 mmol/L (3.5-5.1)
[2020-09-18 18:07] LABS: CALCIUM 8.2 mg/dL (8.5-10.1)
[2020-09-18 18:08] LABS: BLOOD UREA NITROGEN 39.2 mg/dL (7-18)
[2020-09-18 18:11] LABS: CREATININE 3.9 mg/dL (0.55-1.3); PHOSPHOROUS 4.2 mg/dL (2.5-4.9)
[2020-09-18] MEDS: ATORVASTATIN CA 40 MG TABLET (FP) PO SCH (21:20)
[2020-09-18] MEDS: ONDANSETRON 4 MG/2 ML VIAL IVPUSH PRN (21:21)
[2020-09-19] MEDS: BANATROL PLUS POWDER PACKET PO SCH ×3 (06:38→21:16)
[2020-09-19] MEDS: INSULIN (LEVEMIR) 100 UNITS/ML UNITS SQ SCH ×2 (06:45→21:16)
[2020-09-19] MEDS: INSULIN SLIDING SCALE (NOVOLOG) 1 VIAL SQ SCH ×4 (06:45→21:16)
[2020-09-19] MEDS: SODIUM CHLORIDE 0.45% 1,000 ML IV SCH ×2 (06:47→11:30)
[2020-09-19 07:43] LABS: BASO % 0.5 % (0-2.0); EOS % 2.5 % (0-4.5); HEMATOCRIT 34.6 % (35.4-49); HEMOGLOBIN 11.5 GM/dL (11.7-16.9); LYMPH % 6.2 % (8-40); MCH 27.2 pg (25.7-33.7); MCHC 33.3 g/dl (32.0-35.9); MEAN CELL VOLUME 81.6 fl (80-96); MEAN PLT VOLUME 8.3 fl (7.5-11.1); MONO % 8.7 % (3.8-10.2); NEUT % 82.1 % (42.8-82.8); PLATELET COUNT 354 K/MM3 (134-434); RBC 4.24 M/mm3 (4.00-5.60); RDW 13.2 % (11.9-15.9); WHITE BLOOD COUNT 9.4 K/mm3 (4.0-10.0)
[2020-09-19 08:26] LABS: POTASSIUM 4.3 mmol/L (3.5-5.1)
[2020-09-19 08:35] LABS: ALBUMIN 2.3 g/dl (3.4-5.0); BLOOD UREA NITROGEN 38.5 mg/dL (7-18); CALCIUM 7.8 mg/dL (8.5-10.1)
[2020-09-19 08:38] LABS: CREATININE 3.6 mg/dL (0.55-1.3)
[2020-09-19 08:40] LABS: BILIRUBIN,TOTAL 0.4 mg/dL (0.2-1); TOT PROT 5.6 g/dl (6.4-8.2)
[2020-09-19] MEDS ORDERED: cefTRIAXone SODIUM 1 GM VIAL ONE (09:22)
[2020-09-19] MEDS ORDERED: DEXTROSE 5%-WATER - 50 ML IVPB ONE (09:22)
[2020-09-19] MEDS: CEFTRIAXONE 1 GM in DEXTROSE 5%-WATER - 50 ML IVPB SCH (09:53)
[2020-09-19] MEDS: HEPARIN NA (PORCINE) 5,000 UNITS/ML 1ML VIAL SQ SCH ×2 (09:53→21:14)
[2020-09-19] MEDS: ATORVASTATIN CA 40 MG TABLET (FP) PO SCH (21:15)
[2020-09-20] MEDS: INSULIN SLIDING SCALE (NOVOLOG) 1 VIAL SQ SCH ×4 (06:14→22:48)
[2020-09-20] MEDS: BANATROL PLUS POWDER PACKET PO SCH ×3 (06:14→22:48)
[2020-09-20] MEDS: INSULIN (LEVEMIR) 100 UNITS/ML UNITS SQ SCH ×2 (06:15→22:48)
[2020-09-20 08:35] LABS: BASO % 0.5 % (0-2.0); EOS % 3.1 % (0-4.5); HEMATOCRIT 34.9 % (35.4-49); HEMOGLOBIN 11.5 GM/dL (11.7-16.9); LYMPH % 7.1 % (8-40); MEAN CELL VOLUME 81.8 fl (80-96); MEAN PLT VOLUME 8.3 fl (7.5-11.1); MONO % 8.4 % (3.8-10.2); NEUT % 80.9 % (42.8-82.8); PLATELET COUNT 350 K/MM3 (134-434); RBC 4.27 M/mm3 (4.00-5.60); RDW 13.2 % (11.9-15.9); WHITE BLOOD COUNT 8.3 K/mm3 (4.0-10.0)
[2020-09-20 09:00] LABS: POTASSIUM 4.2 mmol/L (3.5-5.1)
[2020-09-20] MEDS ORDERED: cefTRIAXone SODIUM 1 GM VIAL ONE (09:07)
[2020-09-20] MEDS ORDERED: PT OWN MED DRAWER 7, Y5N ONE ×2 (09:07→22:41)
[2020-09-20] MEDS ORDERED: DEXTROSE 5%-WATER - 50 ML IVPB ONE (09:07)
[2020-09-20 09:11] LABS: BLOOD UREA NITROGEN 35.7 mg/dL (7-18); CALCIUM 8.2 mg/dL (8.5-10.1)
[2020-09-20 09:14] LABS: CREATININE 3.2 mg/dL (0.55-1.3)
[2020-09-20] MEDS: HEPARIN NA (PORCINE) 5,000 UNITS/ML 1ML VIAL SQ SCH (10:12)
[2020-09-20] MEDS: CEFTRIAXONE 1 GM in DEXTROSE 5%-WATER - 50 ML IVPB SCH (10:12)
[2020-09-20] MEDS: SODIUM CHLORIDE 0.45% 1,000 ML IV SCH (16:37)
[2020-09-20] MEDS ORDERED: INSULIN (NOVOLOG) ASPART 100 UNITS/ML 10ML VIAL ONE ×2 (18:59→22:40)
[2020-09-20] MEDS: ATORVASTATIN CA 40 MG TABLET (FP) PO SCH (22:49)
[2020-09-21] MEDS: SODIUM CHLORIDE 0.45% 1,000 ML IV SCH ×3 (02:39→21:15)
[2020-09-21] MEDS: BANATROL PLUS POWDER PACKET PO SCH ×2 (05:21→13:22)
[2020-09-21] MEDS: INSULIN (LEVEMIR) 100 UNITS/ML UNITS SQ SCH ×2 (06:03→21:11)
[2020-09-21] MEDS: INSULIN SLIDING SCALE (NOVOLOG) 1 VIAL SQ SCH ×4 (06:05→21:12)
[2020-09-21 07:54] LABS: BASO % 0.7 % (0-2.0); HEMATOCRIT 35.3 % (35.4-49); HEMOGLOBIN 11.8 GM/dL (11.7-16.9); LYMPH % 9.5 % (8-40); MCH 27.4 pg (25.7-33.7); MCHC 33.4 g/dl (32.0-35.9); MEAN CELL VOLUME 81.9 fl (80-96); MEAN PLT VOLUME 8.5 fl (7.5-11.1); MONO % 7.2 % (3.8-10.2); NEUT % 78.6 % (42.8-82.8); PLATELET COUNT 359 K/MM3 (134-434); RBC 4.31 M/mm3 (4.00-5.60); WHITE BLOOD COUNT 8.9 K/mm3 (4.0-10.0)
[2020-09-21 08:16] LABS: CALCIUM 7.9 mg/dL (8.5-10.1)
[2020-09-21 08:17] LABS: ALBUMIN 2.4 g/dl (3.4-5.0); BLOOD UREA NITROGEN 33.5 mg/dL (7-18)
[2020-09-21 08:20] LABS: CREATININE 2.9 mg/dL (0.55-1.3); PHOSPHOROUS 3.6 mg/dL (2.5-4.9)
[2020-09-21 08:21] LABS: TOT PROT 6.1 g/dl (6.4-8.2)
[2020-09-21 08:25] LABS: MAGNESIUM 2.3 mg/dL (1.8-2.4)
[2020-09-21] MEDS ORDERED: DEXTROSE 5%-WATER - 50 ML IVPB ONE (09:44)
[2020-09-21] MEDS ORDERED: cefTRIAXone SODIUM 1 GM VIAL ONE (09:44)
[2020-09-21] MEDS: CEFTRIAXONE 1 GM in DEXTROSE 5%-WATER - 50 ML IVPB SCH (10:26)
[2020-09-21] MEDS ORDERED: INSULIN (NOVOLOG) ASPART 100 UNITS/ML 10ML VIAL ONE (21:09)
[2020-09-21] MEDS: ATORVASTATIN CA 40 MG TABLET (FP) PO SCH (21:11)
[2020-09-22] MEDS: INSULIN SLIDING SCALE (NOVOLOG) 1 VIAL SQ SCH ×4 (06:07→21:16)
[2020-09-22] MEDS: INSULIN (LEVEMIR) 100 UNITS/ML UNITS SQ SCH ×2 (06:07→21:15)
[2020-09-22 07:47] LABS: BASO % 0.6 % (0-2.0); EOS % 4.2 % (0-4.5); HEMATOCRIT 34.4 % (35.4-49); HEMOGLOBIN 11.7 GM/dL (11.7-16.9); LYMPH % 10.1 % (8-40); MCH 27.6 pg (25.7-33.7); MCHC 33.9 g/dl (32.0-35.9); MEAN CELL VOLUME 81.5 fl (80-96); MEAN PLT VOLUME 8.2 fl (7.5-11.1); MONO % 7.1 % (3.8-10.2); PLATELET COUNT 346 K/MM3 (134-434); RBC 4.22 M/mm3 (4.00-5.60); WHITE BLOOD COUNT 8.8 K/mm3 (4.0-10.0)
[2020-09-22 08:26] LABS: POTASSIUM 4.2 mmol/L (3.5-5.1)
[2020-09-22 08:36] LABS: ALBUMIN 2.4 g/dl (3.4-5.0); BLOOD UREA NITROGEN 29.5 mg/dL (7-18); CALCIUM 8.7 mg/dL (8.5-10.1)
[2020-09-22 08:37] LABS: MAGNESIUM 2.2 mg/dL (1.8-2.4)
[2020-09-22 08:39] LABS: CREATININE 2.7 mg/dL (0.55-1.3); PHOSPHOROUS 3.6 mg/dL (2.5-4.9)
[2020-09-22 08:40] LABS: BILIRUBIN,TOTAL 0.6 mg/dL (0.2-1); TOT PROT 5.8 g/dl (6.4-8.2)
[2020-09-22] MEDS ORDERED: cefTRIAXone SODIUM 1 GM VIAL ONE (08:51)
[2020-09-22] MEDS ORDERED: DEXTROSE 5%-WATER - 50 ML IVPB ONE (08:52)
[2020-09-22] MEDS: SODIUM CHLORIDE 0.45% 1,000 ML IV SCH ×3 (09:17→19:59)
[2020-09-22] MEDS: CEFTRIAXONE 1 GM in DEXTROSE 5%-WATER - 50 ML IVPB SCH (09:17)
[2020-09-22] MEDS ORDERED: INSULIN (NOVOLOG) ASPART 100 UNITS/ML 10ML VIAL ONE (20:30)
[2020-09-22] MEDS: ATORVASTATIN CA 40 MG TABLET (FP) PO SCH (21:15)
[2020-09-23] MEDS: SODIUM CHLORIDE 0.45% 1,000 ML IV SCH (05:40)
[2020-09-23] MEDS: INSULIN (LEVEMIR) 100 UNITS/ML UNITS SQ SCH ×2 (06:05→21:07)
[2020-09-23] MEDS: INSULIN SLIDING SCALE (NOVOLOG) 1 VIAL SQ SCH ×4 (06:05→21:08)
[2020-09-23] MEDS ORDERED: INSULIN (NOVOLOG) ASPART 100 UNITS/ML 10ML VIAL ONE (06:09)
[2020-09-23] MEDS ORDERED: cefTRIAXone SODIUM 1 GM VIAL ONE (08:47)
[2020-09-23] MEDS ORDERED: DEXTROSE 5%-WATER - 50 ML IVPB ONE (08:48)
[2020-09-23] MEDS: CEFTRIAXONE 1 GM in DEXTROSE 5%-WATER - 50 ML IVPB SCH (09:09)
[2020-09-23] MEDS: ATORVASTATIN CA 40 MG TABLET (FP) PO SCH (21:06)
[2020-09-24] MEDS: SODIUM CHLORIDE 0.45% 1,000 ML IV SCH ×2 (02:35→17:10)
[2020-09-24] MEDS: INSULIN (LEVEMIR) 100 UNITS/ML UNITS SQ SCH ×2 (06:10→22:01)
[2020-09-24] MEDS: INSULIN SLIDING SCALE (NOVOLOG) 1 VIAL SQ SCH ×4 (06:12→22:32)
[2020-09-24] MEDS ORDERED: INSULIN (NOVOLOG) ASPART 100 UNITS/ML 10ML VIAL ONE ×3 (06:31→21:21)
[2020-09-24 08:04] LABS: POTASSIUM 3.9 mmol/L (3.5-5.1)
[2020-09-24 08:10] LABS: CALCIUM 8.4 mg/dL (8.5-10.1)
[2020-09-24 08:11] LABS: ALBUMIN 2.4 g/dl (3.4-5.0); BLOOD UREA NITROGEN 27.8 mg/dL (7-18)
[2020-09-24 08:14] LABS: CREATININE 2.3 mg/dL (0.55-1.3)
[2020-09-24 08:15] LABS: BILIRUBIN,TOTAL 0.6 mg/dL (0.2-1); TOT PROT 5.9 g/dl (6.4-8.2)
[2020-09-24] MEDS ORDERED: DEXTROSE 5%-WATER - 50 ML IVPB ONE (09:35)
[2020-09-24] MEDS ORDERED: cefTRIAXone SODIUM 1 GM VIAL ONE (09:35)
[2020-09-24] MEDS: CEFTRIAXONE 1 GM in DEXTROSE 5%-WATER - 50 ML IVPB SCH (09:37)
[2020-09-24] MEDS ORDERED: DEXTROSE 5%-WATER - 1,000 ML with POTASSIUM CHLORIDE 10 MEQ IV SCH (17:45)
[2020-09-24] MEDS: POTASSIUM CHLORIDE 10 MEQ in DEXTROSE 5%-WATER - 1,000 ML IV SCH (20:47)
[2020-09-24] MEDS: ATORVASTATIN CA 40 MG TABLET (FP) PO SCH (22:01)
[2020-09-25] MEDS: INSULIN SLIDING SCALE (NOVOLOG) 1 VIAL SQ SCH ×4 (06:01→21:21)
[2020-09-25] MEDS: INSULIN (LEVEMIR) 100 UNITS/ML UNITS SQ SCH ×2 (06:01→21:12)
[2020-09-25] MEDS ORDERED: DEXTROSE 5%-WATER - 50 ML IVPB ONE (08:25)
[2020-09-25] MEDS ORDERED: INSULIN (NOVOLOG) ASPART 100 UNITS/ML 10ML VIAL ONE ×2 (08:25→19:47)
[2020-09-25] MEDS ORDERED: cefTRIAXone SODIUM 1 GM VIAL ONE (08:25)
[2020-09-25] MEDS: CEFTRIAXONE 1 GM in DEXTROSE 5%-WATER - 50 ML IVPB SCH (10:00)
[2020-09-25] MEDS: POTASSIUM CHLORIDE 10 MEQ in DEXTROSE 5%-WATER - 1,000 ML IV SCH ×2 (10:00→20:31)
[2020-09-25] MEDS: COLLAGENASE CLOSTRIDIUM HIST. 30 GRAMS TUBE TP SCH (10:01)
[2020-09-25] MEDS: ATORVASTATIN CA 40 MG TABLET (FP) PO SCH (21:13)
[2020-09-26] MEDS: INSULIN (LEVEMIR) 100 UNITS/ML UNITS SQ SCH ×2 (06:03→21:36)
[2020-09-26] MEDS: INSULIN SLIDING SCALE (NOVOLOG) 1 VIAL SQ SCH ×4 (06:03→21:37)
[2020-09-26 07:13] LABS: POTASSIUM 3.8 mmol/L (3.5-5.1)
[2020-09-26 07:14] LABS: CALCIUM 8.5 mg/dL (8.5-10.1)
[2020-09-26 07:15] LABS: BLOOD UREA NITROGEN 23.4 mg/dL (7-18)
[2020-09-26 07:19] LABS: PHOSPHOROUS 3.2 mg/dL (2.5-4.9)
[2020-09-26] MEDS ORDERED: cefTRIAXone SODIUM 1 GM VIAL ONE (08:40)
[2020-09-26] MEDS ORDERED: DEXTROSE 5%-WATER - 50 ML IVPB ONE (08:40)
[2020-09-26] MEDS: POTASSIUM CHLORIDE 10 MEQ in DEXTROSE 5%-WATER - 1,000 ML IV SCH ×2 (09:30→22:11)
[2020-09-26] MEDS: CEFTRIAXONE 1 GM in DEXTROSE 5%-WATER - 50 ML IVPB SCH (09:30)
[2020-09-26] MEDS: COLLAGENASE CLOSTRIDIUM HIST. 30 GRAMS TUBE TP SCH (09:30)
[2020-09-26] MEDS: ONDANSETRON 4 MG/2 ML VIAL IVPUSH PRN (16:46)
[2020-09-26] MEDS: ATORVASTATIN CA 40 MG TABLET (FP) PO SCH (21:36)
[2020-09-27] MEDS: INSULIN (LEVEMIR) 100 UNITS/ML UNITS SQ SCH ×2 (06:18→21:33)
[2020-09-27] MEDS: INSULIN SLIDING SCALE (NOVOLOG) 1 VIAL SQ SCH ×4 (06:18→21:34)
[2020-09-27 07:24] LABS: CALCIUM 8.4 mg/dL (8.5-10.1)
[2020-09-27 07:25] LABS: BLOOD UREA NITROGEN 22.2 mg/dL (7-18); MAGNESIUM 1.9 mg/dL (1.8-2.4)
[2020-09-27 07:27] LABS: CREATININE 1.9 mg/dL (0.55-1.3)
[2020-09-27 07:28] LABS: PHOSPHOROUS 3.3 mg/dL (2.5-4.9)
[2020-09-27] MEDS ORDERED: DEXTROSE 5%-WATER - 50 ML IVPB ONE (09:36)
[2020-09-27] MEDS ORDERED: cefTRIAXone SODIUM 1 GM VIAL ONE (09:36)
[2020-09-27] MEDS: CEFTRIAXONE 1 GM in DEXTROSE 5%-WATER - 50 ML IVPB SCH (11:11)
[2020-09-27] MEDS: COLLAGENASE CLOSTRIDIUM HIST. 30 GRAMS TUBE TP SCH (11:12)
[2020-09-27] MEDS ORDERED: INSULIN (NOVOLOG) ASPART 100 UNITS/ML 10ML VIAL ONE ×2 (11:17→21:04)
[2020-09-27] MEDS: POTASSIUM CHLORIDE 10 MEQ in DEXTROSE 5%-WATER - 1,000 ML IV SCH ×2 (20:14→23:28)
[2020-09-27] MEDS: ATORVASTATIN CA 40 MG TABLET (FP) PO SCH (21:36)
[2020-09-28] MEDS: INSULIN (LEVEMIR) 100 UNITS/ML UNITS SQ SCH (06:01)
[2020-09-28] MEDS: INSULIN SLIDING SCALE (NOVOLOG) 1 VIAL SQ SCH ×3 (06:02→18:27)
[2020-09-28] MEDS ORDERED: INSULIN (NOVOLOG) ASPART 100 UNITS/ML 10ML VIAL ONE ×2 (06:33→18:49)
[2020-09-28 09:59] LABS: BASO % 0.5 % (0-2.0); EOS % 3.4 % (0-4.5); HEMOGLOBIN 12.8 GM/dL (11.7-16.9); LYMPH % 8.3 % (8-40); MCH 27.3 pg (25.7-33.7); MCHC 33.6 g/dl (32.0-35.9); MONO % 5.5 % (3.8-10.2); NEUT % 82.3 % (42.8-82.8); PLATELET COUNT 200 K/MM3 (134-434); RBC 4.69 M/mm3 (4.00-5.60); RDW 13.3 % (11.9-15.9); WHITE BLOOD COUNT 9.4 K/mm3 (4.0-10.0)
[2020-09-28] MEDS: POTASSIUM CHLORIDE 10 MEQ in DEXTROSE 5%-WATER - 1,000 ML IV SCH (11:27)
[2020-09-28] MEDS ORDERED: CEFTRIAXONE 2 GM in DEXTROSE 5%-WATER 100 ML IVPB SCH (12:00)
[2020-09-28] MEDS ORDERED: INSULIN (LEVEMIR) 100 UNITS/ML UNITS SQ SCH (13:42)
[2020-09-28] MEDS ORDERED: DEXTROSE 5%-WATER 100 ML IVPB ONE ×2 (13:57→13:58)
[2020-09-28 14:01] LABS: POTASSIUM 4.2 mmol/L (3.5-5.1)
[2020-09-28 14:03] LABS: BLOOD UREA NITROGEN 24.1 mg/dL (7-18); CALCIUM 8.9 mg/dL (8.5-10.1)
[2020-09-28 14:06] LABS: CREATININE 1.7 mg/dL (0.55-1.3)
[2020-09-28 14:36] VITALS: BP 142/84; PULSE 71; TEMP 98
[2020-09-28] MEDS: COLLAGENASE CLOSTRIDIUM HIST. 30 GRAMS TUBE TP SCH (16:09)
== END 2020-09-28 20:19 | disposition home or self-care (01) | DRG 305 ==
LOC: JER 12:01 → JERBED 17:34 → J7W 23:03
PROVIDERS: ADMIT Internal Medicine; ATTEND Internal Medicine
PROC: 0Y6N0Z7 Detachment at Left Foot, Complete 4th Ray, Open Approach (ICD-10-PCS; 2020-09-10)
PROC: 0Y6N0Z8 Detachment at Left Foot, Complete 5th Ray, Open Approach (ICD-10-PCS; 2020-09-10)
PROC: 0QBP0ZZ Excision of Left Metatarsal, Open Approach (ICD-10-PCS; 2020-09-10)
PROC: 0Y6N0Z6 Detachment at Left Foot, Complete 3rd Ray, Open Approach (ICD-10-PCS; principal; 2020-09-10 18:40)
PROC: 05HM33Z Insertion of Infusion Device into Right Internal Jugular Vein, Percutaneous Approach (ICD-10-PCS; 2020-09-28)
PROC: B513ZZA Fluoroscopy of Right Jugular Veins, Guidance (ICD-10-PCS; 2020-09-28)
DX: E11.52 Type 2 diabetes mellitus with diabetic peripheral angiopathy with gangrene (principal); A48.0 Gas gangrene; M72.6 Necrotizing fasciitis; E11.628 Type 2 diabetes mellitus with other skin complications; L08.9 Local infection of the skin and subcutaneous tissue, unspecified; L03.116 Cellulitis of left lower limb; E11.65 Type 2 diabetes mellitus with hyperglycemia; N17.9 Acute kidney failure, unspecified; Z79.4 Long term (current) use of insulin; I10 Essential (primary) hypertension; E78.5 Hyperlipidemia, unspecified; E66.9 Obesity, unspecified; Z68.37 Body mass index [BMI] 37.0-37.9, adult; D72.829 Elevated white blood cell count, unspecified
CPT/HCPCS: 36415; 36558; 71045-TC-FY; 73630-TC-LT; 76775-TC; 77001-TC-FY; 80048; 80053; 80061; 81003; 82436; 82565; 82962; 83036; 83605; 83721; 83735; 84100; 84133; 84300; 84443; 84484; 85025; 85027; 85610; 85651; 85730; 86140; 86850; 86900; 86901; 87040; 87070; 87077; 87086; 87186; 87205; 88305-TC; 88311-TC; 93005; 93010; 94760; 99285-25; C1751; C9803; G0480; J1644; U0003

== ENCOUNTER 2020-10-02 14:59 | Day surgery (SDC) | payer OTHER ==
[2020-10-02] MEDS ORDERED: DEXTROSE 5%-WATER 100 ML IVPB ONE (15:27)
[2020-10-02] MEDS ORDERED: CEFTRIAXONE 2 GM in DEXTROSE 5%-WATER 100 ML IVPB ONE (15:30)
[2020-10-02 15:35] VITALS: BP 126/92; PULSE 102; TEMP 98.4
== END 2020-10-02 16:15 | disposition home or self-care (01) ==
LOC: JINFUSION 14:59 → J7W 15:00 → JINFUSION 16:15
PROVIDERS: ATTEND Internal Medicine Infectious Disease
DX: E11.52 Type 2 diabetes mellitus with diabetic peripheral angiopathy with gangrene (principal); L08.9 Local infection of the skin and subcutaneous tissue, unspecified; L03.116 Cellulitis of left lower limb; Z79.4 Long term (current) use of insulin
CPT/HCPCS: 96365

== ENCOUNTER 2020-10-05 15:29 | Day surgery (SDC) | payer OTHER ==
[2020-10-05] MEDS ORDERED: CEFTRIAXONE 2 GM in DEXTROSE 5%-WATER 100 ML IVPB ONE (16:00)
[2020-10-05] MEDS ORDERED: DEXTROSE 5%-WATER 100 ML IVPB ONE (16:01)
[2020-10-21 18:37] VITALS: BP 134/70; PULSE 84; TEMP 98.2
== END 2020-10-05 20:34 | disposition home or self-care (01) ==
LOC: JINFUSION 15:29 → J7W 15:30 → JINFUSION 20:34
PROVIDERS: ATTEND Internal Medicine Infectious Disease
DX: E11.52 Type 2 diabetes mellitus with diabetic peripheral angiopathy with gangrene (principal); L08.9 Local infection of the skin and subcutaneous tissue, unspecified; L03.116 Cellulitis of left lower limb; Z79.4 Long term (current) use of insulin
CPT/HCPCS: 96365

== ENCOUNTER 2020-10-06 18:18 | Day surgery (SDC) | payer OTHER ==
[2020-10-06] MEDS ORDERED: CEFTRIAXONE 2 GM in DEXTROSE 5%-WATER 100 ML IVPB ONE (18:30)
[2020-10-06] MEDS ORDERED: DEXTROSE 5%-WATER 100 ML IVPB ONE (18:31)
[2020-10-06 18:48] VITALS: TEMP 98.2
[2020-10-06 18:59] VITALS: BP 122/88; PULSE 100
== END 2020-10-06 19:03 | disposition home or self-care (01) ==
LOC: JINFUSION 18:18 → J7W 18:19 → JINFUSION 19:03
PROVIDERS: ATTEND Internal Medicine Infectious Disease
DX: E11.52 Type 2 diabetes mellitus with diabetic peripheral angiopathy with gangrene (principal); L08.9 Local infection of the skin and subcutaneous tissue, unspecified; L03.116 Cellulitis of left lower limb; Z79.4 Long term (current) use of insulin
CPT/HCPCS: 96365

== ENCOUNTER 2020-10-08 14:49 | Day surgery (SDC) | payer OTHER ==
[2020-10-08] MEDS ORDERED: DEXTROSE 5%-WATER 100 ML IVPB ONE (15:14)
[2020-10-08] MEDS ORDERED: CEFTRIAXONE 2 GM in DEXTROSE 5%-WATER 100 ML IVPB ONE (15:15)
[2020-10-08 15:30] VITALS: BP 156/90; PULSE 106; TEMP 98.6
== END 2020-10-08 19:00 | disposition home or self-care (01) ==
LOC: JINFUSION 14:49 → J7W 14:49 → JINFUSION 19:00
PROVIDERS: ATTEND Internal Medicine Infectious Disease
DX: E11.52 Type 2 diabetes mellitus with diabetic peripheral angiopathy with gangrene (principal); L08.9 Local infection of the skin and subcutaneous tissue, unspecified; L03.116 Cellulitis of left lower limb; Z79.4 Long term (current) use of insulin
CPT/HCPCS: 96365

== ENCOUNTER 2020-10-09 15:11 | Day surgery (SDC) | payer OTHER ==
[2020-10-09] MEDS ORDERED: CEFTRIAXONE 2 GM in DEXTROSE 5%-WATER 100 ML IVPB ONE (15:15)
[2020-10-09] MEDS ORDERED: DEXTROSE 5%-WATER 100 ML IVPB ONE (15:34)
[2020-10-09 17:35] VITALS: BP 136/91; PULSE 108; TEMP 97.8
== END 2020-10-09 15:55 | disposition home or self-care (01) ==
LOC: J7W 15:11 → JINFUSION 15:11
PROVIDERS: ATTEND Internal Medicine Infectious Disease
DX: E11.52 Type 2 diabetes mellitus with diabetic peripheral angiopathy with gangrene (principal); L08.9 Local infection of the skin and subcutaneous tissue, unspecified; L03.116 Cellulitis of left lower limb; Z79.4 Long term (current) use of insulin
CPT/HCPCS: 96365

== ENCOUNTER 2020-10-11 15:23 | Day surgery (SDC) | payer OTHER ==
[2020-10-11] MEDS ORDERED: DEXTROSE 5%-WATER 100 ML IVPB ONE (16:51)
[2020-10-11] MEDS ORDERED: CEFTRIAXONE 2 GM in DEXTROSE 5%-WATER 100 ML IVPB ONE (17:00)
[2020-10-11 17:58] VITALS: BP 138/80; PULSE 78; TEMP 98
== END 2020-10-11 18:00 | disposition home or self-care (01) ==
LOC: JINFUSION 15:23 → J7W 15:51 → JINFUSION 18:00
PROVIDERS: ATTEND Internal Medicine Infectious Disease
DX: E11.52 Type 2 diabetes mellitus with diabetic peripheral angiopathy with gangrene (principal); L08.9 Local infection of the skin and subcutaneous tissue, unspecified; L03.119 Cellulitis of unspecified part of limb; Z79.4 Long term (current) use of insulin
CPT/HCPCS: 96365

== ENCOUNTER 2020-10-12 15:14 | Day surgery (SDC) | payer OTHER ==
[2020-10-12] MEDS ORDERED: CEFTRIAXONE 2 GM in DEXTROSE 5%-WATER 100 ML IVPB ONE (15:45)
[2020-10-12] MEDS ORDERED: DEXTROSE 5%-WATER 100 ML IVPB ONE (16:06)
[2020-10-12 16:28] VITALS: BP 128/81; PULSE 95; TEMP 99.7
== END 2020-10-12 17:10 | disposition home or self-care (01) ==
LOC: JINFUSION 15:14 → J7W 15:14 → JINFUSION 17:10
PROVIDERS: ATTEND Internal Medicine Infectious Disease
DX: E11.52 Type 2 diabetes mellitus with diabetic peripheral angiopathy with gangrene (principal); L08.9 Local infection of the skin and subcutaneous tissue, unspecified; L03.116 Cellulitis of left lower limb; Z79.4 Long term (current) use of insulin
CPT/HCPCS: 36415; 85651; 86140; 96365

== ENCOUNTER 2020-10-16 15:06 | Day surgery (SDC) | payer OTHER ==
[2020-10-16] MEDS ORDERED: CEFTRIAXONE 2 GM in DEXTROSE 5%-WATER 100 ML IVPB ONE (15:30)
[2020-10-16] MEDS ORDERED: DEXTROSE 5%-WATER 100 ML IVPB ONE (15:40)
[2020-10-16 18:14] VITALS: BP 130/60; PULSE 87; TEMP 98
== END 2020-10-16 18:14 | disposition home or self-care (01) ==
LOC: JINFUSION 15:06 → J7W 15:07 → JINFUSION 18:14
PROVIDERS: ATTEND Internal Medicine Infectious Disease
DX: E11.52 Type 2 diabetes mellitus with diabetic peripheral angiopathy with gangrene (principal); L08.9 Local infection of the skin and subcutaneous tissue, unspecified; L03.116 Cellulitis of left lower limb
CPT/HCPCS: 96365

== ENCOUNTER 2020-10-17 15:11 | Day surgery (SDC) | payer OTHER ==
[2020-10-17] MEDS ORDERED: CEFTRIAXONE 2 GM in DEXTROSE 5%-WATER 100 ML IVPB ONE (16:00)
[2020-10-17] MEDS ORDERED: DEXTROSE 5%-WATER 100 ML IVPB ONE (16:07)
[2020-10-17 18:25] VITALS: BP 125/85; PULSE 78; TEMP 98
== END 2020-10-17 18:29 | disposition home or self-care (01) ==
LOC: JINFUSION 15:11 → J7W 15:18 → JINFUSION 18:29
PROVIDERS: ATTEND Internal Medicine Infectious Disease
DX: E11.52 Type 2 diabetes mellitus with diabetic peripheral angiopathy with gangrene (principal); L08.9 Local infection of the skin and subcutaneous tissue, unspecified; L03.116 Cellulitis of left lower limb; Z79.4 Long term (current) use of insulin
CPT/HCPCS: 96365

== ENCOUNTER 2020-10-19 15:24 | Day surgery (SDC) | payer OTHER ==
[2020-10-19] MEDS ORDERED: CEFTRIAXONE 2 GM in DEXTROSE 5%-WATER 100 ML IVPB ONE (15:45)
[2020-10-19] MEDS ORDERED: DEXTROSE 5%-WATER 100 ML IVPB ONE (16:14)
[2020-10-19 17:28] VITALS: BP 139/78; PULSE 85; TEMP 98
== END 2020-10-19 17:49 | disposition home or self-care (01) ==
LOC: J7W 15:24 → JINFUSION 15:24
PROVIDERS: ATTEND Internal Medicine Infectious Disease
DX: E11.52 Type 2 diabetes mellitus with diabetic peripheral angiopathy with gangrene (principal); L08.9 Local infection of the skin and subcutaneous tissue, unspecified; L03.116 Cellulitis of left lower limb; Z79.4 Long term (current) use of insulin
CPT/HCPCS: 96365

== ENCOUNTER 2020-10-20 15:32 | Day surgery (SDC) | payer OTHER ==
[2020-10-20] MEDS ORDERED: CEFTRIAXONE 2 GM in DEXTROSE 5%-WATER 100 ML IVPB ONE (16:30)
[2020-10-20] MEDS ORDERED: DEXTROSE 5%-WATER 100 ML IVPB ONE (16:47)
[2020-10-20 18:49] VITALS: BP 130/87; PULSE 86; TEMP 98
== END 2020-10-20 18:49 | disposition home or self-care (01) ==
LOC: J7W 15:32 → JINFUSION 15:32
PROVIDERS: ATTEND Internal Medicine Infectious Disease
DX: E11.52 Type 2 diabetes mellitus with diabetic peripheral angiopathy with gangrene (principal); L08.9 Local infection of the skin and subcutaneous tissue, unspecified; L03.116 Cellulitis of left lower limb; Z79.4 Long term (current) use of insulin
CPT/HCPCS: 96365

== ENCOUNTER 2020-10-21 15:22 | Day surgery (SDC) | payer OTHER ==
[~2020-10-21 15:22] MED LIST: CEFTRIAXONE 2 GM in DEXTROSE 5%-WATER 100 ML IVPB ONE
[2020-10-21 15:26] VITALS: BP 118/83; PULSE 93; TEMP 98.5
[2020-10-21] MEDS ORDERED: CEFTRIAXONE 2 GM in DEXTROSE 5%-WATER 100 ML IVPB ONE (15:30)
[2020-10-21] MEDS ORDERED: DEXTROSE 5%-WATER 100 ML IVPB ONE (15:49)
== END 2020-10-21 18:18 | disposition home or self-care (01) ==
LOC: JINFUSION 15:22 → J7W 15:24 → JINFUSION 18:18
PROVIDERS: ATTEND Internal Medicine Infectious Disease
DX: E11.52 Type 2 diabetes mellitus with diabetic peripheral angiopathy with gangrene (principal); L08.9 Local infection of the skin and subcutaneous tissue, unspecified; L03.116 Cellulitis of left lower limb; Z79.4 Long term (current) use of insulin
CPT/HCPCS: 96365

== ENCOUNTER 2020-10-22 15:00 | Day surgery (SDC) | payer OTHER ==
[2020-10-22] MEDS ORDERED: CEFTRIAXONE 2 GM in DEXTROSE 5%-WATER 100 ML IVPB ONE (15:15)
[2020-10-22] MEDS ORDERED: DEXTROSE 5%-WATER 100 ML IVPB ONE (15:30)
[2020-10-22 18:00] VITALS: BP 120/78; PULSE 86; TEMP 98.4
== END 2020-10-22 18:02 | disposition home or self-care (01) ==
LOC: JINFUSION 15:00 → J7W 15:00 → JINFUSION 18:02
PROVIDERS: ATTEND Internal Medicine Infectious Disease
DX: E11.52 Type 2 diabetes mellitus with diabetic peripheral angiopathy with gangrene (principal); L08.9 Local infection of the skin and subcutaneous tissue, unspecified; L03.116 Cellulitis of left lower limb; Z79.4 Long term (current) use of insulin
CPT/HCPCS: 96365

== ENCOUNTER 2020-10-23 14:36 | Day surgery (SDC) | payer OTHER ==
[2020-10-23] MEDS ORDERED: DEXTROSE 5%-WATER 100 ML IVPB ONE (14:46)
[2020-10-23] MEDS ORDERED: CEFTRIAXONE 2 GM in DEXTROSE 5%-WATER 100 ML IVPB ONE (15:00)
[2020-10-23 15:45] VITALS: BP 145/70; PULSE 73; TEMP 98.3
== END 2020-10-23 15:46 | disposition home or self-care (01) ==
LOC: J7W 14:36 → JINFUSION 14:36
PROVIDERS: ATTEND Internal Medicine Infectious Disease
DX: E11.52 Type 2 diabetes mellitus with diabetic peripheral angiopathy with gangrene (principal); L08.9 Local infection of the skin and subcutaneous tissue, unspecified; L03.116 Cellulitis of left lower limb; Z79.4 Long term (current) use of insulin
CPT/HCPCS: 96365

== ENCOUNTER 2020-10-24 15:03 | Day surgery (SDC) | payer OTHER ==
[2020-10-24] MEDS ORDERED: CEFTRIAXONE 2 GM in DEXTROSE 5%-WATER 100 ML IVPB ONE (15:15)
[2020-10-24] MEDS ORDERED: DEXTROSE 5%-WATER 100 ML IVPB ONE (15:16)
[2020-10-24 16:23] VITALS: BP 135/71; PULSE 81; TEMP 98.1
== END 2020-10-24 16:24 | disposition home or self-care (01) ==
LOC: JINFUSION 15:03 → J7W 15:04 → JINFUSION 16:24
PROVIDERS: ATTEND Internal Medicine Infectious Disease
DX: E11.52 Type 2 diabetes mellitus with diabetic peripheral angiopathy with gangrene (principal); L08.9 Local infection of the skin and subcutaneous tissue, unspecified; L03.116 Cellulitis of left lower limb; Z79.4 Long term (current) use of insulin
CPT/HCPCS: 96365

== ENCOUNTER 2020-10-25 15:27 | Day surgery (SDC) | payer OTHER ==
[2020-10-25] MEDS ORDERED: DEXTROSE 5%-WATER 100 ML IVPB ONE (15:41)
[2020-10-25] MEDS ORDERED: CEFTRIAXONE 2 GM in DEXTROSE 5%-WATER 100 ML IVPB ONE (15:45)
[2020-10-25 17:55] VITALS: BP 120/62; PULSE 95; TEMP 98
== END 2020-10-25 17:56 | disposition home or self-care (01) ==
LOC: JINFUSION 15:27 → J7W 15:28 → JINFUSION 17:56
PROVIDERS: ATTEND Internal Medicine Infectious Disease
DX: E11.52 Type 2 diabetes mellitus with diabetic peripheral angiopathy with gangrene (principal); L08.9 Local infection of the skin and subcutaneous tissue, unspecified; L03.116 Cellulitis of left lower limb; Z79.4 Long term (current) use of insulin
CPT/HCPCS: 96365

== ENCOUNTER 2020-10-26 15:23 | Day surgery (SDC) | payer OTHER ==
[2020-10-26] MEDS ORDERED: DEXTROSE 5%-WATER 100 ML IVPB ONE (15:59)
[2020-10-26 17:27] VITALS: BP 105/74; PULSE 84; TEMP 99.4
== END 2020-10-26 17:00 | disposition home or self-care (01) ==
LOC: JINFUSION 15:23 → J7W 15:24 → JINFUSION 17:00
PROVIDERS: ATTEND Internal Medicine Infectious Disease
DX: E11.52 Type 2 diabetes mellitus with diabetic peripheral angiopathy with gangrene (principal); L08.9 Local infection of the skin and subcutaneous tissue, unspecified; L03.116 Cellulitis of left lower limb; Z79.4 Long term (current) use of insulin
CPT/HCPCS: 36415; 85651; 86140; 96365

== ENCOUNTER 2020-10-27 15:00 | Day surgery (SDC) | payer OTHER ==
[2020-10-27] MEDS ORDERED: DEXTROSE 5%-WATER 100 ML IVPB ONE (15:22)
[2020-10-27] MEDS ORDERED: CEFTRIAXONE 2 GM in DEXTROSE 5%-WATER 100 ML IVPB ONE (15:30)
[2020-10-27 18:05] VITALS: TEMP 98.9
[2020-10-27 18:06] VITALS: BP 109/72; PULSE 78
== END 2020-10-27 16:35 | disposition home or self-care (01) ==
LOC: J7W 15:00 → JINFUSION 15:00
PROVIDERS: ATTEND Internal Medicine Infectious Disease
DX: E11.52 Type 2 diabetes mellitus with diabetic peripheral angiopathy with gangrene (principal); L08.9 Local infection of the skin and subcutaneous tissue, unspecified; L03.116 Cellulitis of left lower limb; Z79.4 Long term (current) use of insulin
CPT/HCPCS: 96365

== ENCOUNTER 2020-10-28 15:10 | Day surgery (SDC) | payer OTHER ==
[2020-10-28] MEDS ORDERED: CEFTRIAXONE 2 GM in DEXTROSE 5%-WATER 100 ML IVPB ONE (15:30)
[2020-10-28] MEDS ORDERED: DEXTROSE 5%-WATER 100 ML IVPB ONE (15:42)
[2020-10-28 17:05] VITALS: BP 125/87; PULSE 86; TEMP 98
== END 2020-10-28 17:05 | disposition home or self-care (01) ==
LOC: J7W 15:10 → JINFUSION 15:10
PROVIDERS: ATTEND Internal Medicine Infectious Disease
DX: E11.52 Type 2 diabetes mellitus with diabetic peripheral angiopathy with gangrene (principal); L08.9 Local infection of the skin and subcutaneous tissue, unspecified; L03.116 Cellulitis of left lower limb; Z79.4 Long term (current) use of insulin
CPT/HCPCS: 96365

== ENCOUNTER 2020-10-29 15:11 | Day surgery (SDC) | payer OTHER ==
[2020-10-29] MEDS ORDERED: DEXTROSE 5%-WATER 100 ML IVPB ONE (15:37)
[2020-10-29 16:27] VITALS: BP 116/75; PULSE 90; TEMP 98.4
== END 2020-10-29 16:28 | disposition home or self-care (01) ==
LOC: JINFUSION 15:11 → J7W 15:12 → JINFUSION 16:28
PROVIDERS: ATTEND Internal Medicine Infectious Disease
DX: E11.52 Type 2 diabetes mellitus with diabetic peripheral angiopathy with gangrene (principal); L08.9 Local infection of the skin and subcutaneous tissue, unspecified; L03.116 Cellulitis of left lower limb; Z79.4 Long term (current) use of insulin
CPT/HCPCS: 96365

== ENCOUNTER 2020-10-30 15:12 | Day surgery (SDC) | payer OTHER ==
[2020-10-30] MEDS ORDERED: DEXTROSE 5%-WATER 100 ML IVPB ONE (15:29)
[2020-10-30] MEDS ORDERED: CEFTRIAXONE 2 GM in DEXTROSE 5%-WATER 100 ML IVPB ONE (15:30)
[2020-10-30 15:54] VITALS: TEMP 98.2
[2020-10-30 16:28] VITALS: BP 107/75; PULSE 91
== END 2020-10-30 16:42 | disposition home or self-care (01) ==
LOC: JINFUSION 15:12 → J7W 15:13 → JINFUSION 16:42
PROVIDERS: ATTEND Internal Medicine Infectious Disease
DX: E11.52 Type 2 diabetes mellitus with diabetic peripheral angiopathy with gangrene (principal); L08.9 Local infection of the skin and subcutaneous tissue, unspecified; L03.116 Cellulitis of left lower limb; Z79.4 Long term (current) use of insulin
CPT/HCPCS: 96365

== ENCOUNTER 2020-10-31 15:22 | Day surgery (SDC) | payer OTHER ==
[2020-10-31] MEDS ORDERED: CEFTRIAXONE 2 GM in DEXTROSE 5%-WATER 100 ML IVPB ONE (15:45)
[2020-10-31] MEDS ORDERED: DEXTROSE 5%-WATER 100 ML IVPB ONE (16:12)
[2020-10-31 17:03] VITALS: BP 101/78; PULSE 98; TEMP 98.2
== END 2020-10-31 16:55 | disposition home or self-care (01) ==
LOC: JINFUSION 15:22 → J7W 15:22 → JINFUSION 16:55
PROVIDERS: ATTEND Internal Medicine Infectious Disease
DX: E11.52 Type 2 diabetes mellitus with diabetic peripheral angiopathy with gangrene (principal); L08.9 Local infection of the skin and subcutaneous tissue, unspecified; L03.116 Cellulitis of left lower limb; Z79.4 Long term (current) use of insulin
CPT/HCPCS: 96365

== ENCOUNTER 2020-11-02 14:54 | Day surgery (SDC) | payer OTHER ==
[2020-11-02] MEDS ORDERED: CEFTRIAXONE 2 GM in DEXTROSE 5%-WATER 100 ML IVPB ONE (15:15)
[2020-11-02] MEDS ORDERED: DEXTROSE 5%-WATER 100 ML IVPB ONE (15:51)
[2020-11-02 20:14] VITALS: BP 137/77; PULSE 80; TEMP 98
== END 2020-11-02 17:00 | disposition home or self-care (01) ==
LOC: JINFUSION 14:54 → J7W 14:56 → JINFUSION 17:00
PROVIDERS: ATTEND Internal Medicine Infectious Disease
DX: E11.52 Type 2 diabetes mellitus with diabetic peripheral angiopathy with gangrene (principal); L08.9 Local infection of the skin and subcutaneous tissue, unspecified; L03.116 Cellulitis of left lower limb; Z79.4 Long term (current) use of insulin
CPT/HCPCS: 96365

== ENCOUNTER 2020-11-03 14:55 | Day surgery (SDC) | payer OTHER ==
[2020-11-03] MEDS ORDERED: CEFTRIAXONE 2 GM in DEXTROSE 5%-WATER 100 ML IVPB ONE (15:00)
[2020-11-03] MEDS ORDERED: DEXTROSE 5%-WATER 100 ML IVPB ONE (15:05)
[2020-11-03 16:24] VITALS: BP 136/77; PULSE 89; TEMP 98.4
== END 2020-11-03 16:00 | disposition home or self-care (01) ==
LOC: JINFUSION 14:55 → J7W 14:55 → JINFUSION 16:00
PROVIDERS: ATTEND Internal Medicine Infectious Disease
DX: E11.52 Type 2 diabetes mellitus with diabetic peripheral angiopathy with gangrene (principal); L08.9 Local infection of the skin and subcutaneous tissue, unspecified; L03.116 Cellulitis of left lower limb; Z79.4 Long term (current) use of insulin
CPT/HCPCS: 96365

== ENCOUNTER 2020-11-04 14:46 | Day surgery (SDC) | payer OTHER ==
[2020-11-04] MEDS ORDERED: DEXTROSE 5%-WATER 100 ML IVPB ONE (15:07)
[2020-11-04 15:52] VITALS: TEMP 98.9
[2020-11-04 16:11] VITALS: BP 110/81; PULSE 100
== END 2020-11-04 16:11 | disposition home or self-care (01) ==
LOC: JINFUSION 14:46 → J7W 14:47 → JINFUSION 16:11
PROVIDERS: ATTEND Internal Medicine Infectious Disease
DX: E11.52 Type 2 diabetes mellitus with diabetic peripheral angiopathy with gangrene (principal); L08.9 Local infection of the skin and subcutaneous tissue, unspecified; L03.116 Cellulitis of left lower limb; Z79.4 Long term (current) use of insulin
CPT/HCPCS: 36415; 85651; 86140; 96365

== ENCOUNTER 2020-11-05 14:49 | Day surgery (SDC) | payer OTHER ==
[2020-11-05] MEDS ORDERED: CEFTRIAXONE 2 GM in DEXTROSE 5%-WATER 100 ML IVPB ONE (15:15)
[2020-11-05 15:17] VITALS: TEMP 98.3
[2020-11-05] MEDS ORDERED: DEXTROSE 5%-WATER 100 ML IVPB ONE (15:20)
[2020-11-05 17:02] VITALS: BP 125/67; PULSE 80
== END 2020-11-05 17:03 | disposition home or self-care (01) ==
LOC: JINFUSION 14:49 → J7W 14:49 → JINFUSION 17:03
PROVIDERS: ATTEND Internal Medicine Infectious Disease
DX: E11.52 Type 2 diabetes mellitus with diabetic peripheral angiopathy with gangrene (principal); L08.9 Local infection of the skin and subcutaneous tissue, unspecified; L03.116 Cellulitis of left lower limb; Z79.4 Long term (current) use of insulin
CPT/HCPCS: 96365

== ENCOUNTER 2020-11-06 15:08 | Day surgery (SDC) | payer OTHER ==
[2020-11-06] MEDS ORDERED: CEFTRIAXONE 2 GM in DEXTROSE 5%-WATER 100 ML IVPB ONE (15:15)
[2020-11-06] MEDS ORDERED: DEXTROSE 5%-WATER 100 ML IVPB ONE (15:16)
[2020-11-06 15:57] VITALS: BP 143/77; PULSE 80; TEMP 98
== END 2020-11-06 15:57 | disposition home or self-care (01) ==
LOC: J7W 15:08 → JINFUSION 15:08
PROVIDERS: ATTEND Internal Medicine Infectious Disease
DX: E11.52 Type 2 diabetes mellitus with diabetic peripheral angiopathy with gangrene (principal); L08.9 Local infection of the skin and subcutaneous tissue, unspecified; L03.116 Cellulitis of left lower limb; Z79.4 Long term (current) use of insulin
CPT/HCPCS: 96365

== ENCOUNTER 2020-11-07 15:35 | Day surgery (SDC) | payer OTHER ==
[2020-11-07] MEDS ORDERED: CEFTRIAXONE 2 GM in DEXTROSE 5%-WATER 100 ML IVPB ONE (16:00)
[2020-11-07] MEDS ORDERED: DEXTROSE 5%-WATER 100 ML IVPB ONE (16:02)
[2020-11-07 16:22] VITALS: BP 116/71; PULSE 84; TEMP 98.2
== END 2020-11-07 16:55 | disposition home or self-care (01) ==
LOC: JINFUSION 15:35 → J7W 15:36 → JINFUSION 16:55
PROVIDERS: ATTEND Internal Medicine Infectious Disease
DX: E11.52 Type 2 diabetes mellitus with diabetic peripheral angiopathy with gangrene (principal); L08.9 Local infection of the skin and subcutaneous tissue, unspecified; L03.116 Cellulitis of left lower limb; Z79.4 Long term (current) use of insulin
CPT/HCPCS: 96365

== ENCOUNTER 2020-11-09 14:37 | Day surgery (SDC) | payer OTHER ==
[2020-11-09] MEDS ORDERED: DEXTROSE 5%-WATER 100 ML IVPB ONE (14:56)
[2020-11-09] MEDS ORDERED: CEFTRIAXONE 2 GM in DEXTROSE 5%-WATER 100 ML IVPB ONE (15:00)
[2020-11-09 15:09] VITALS: TEMP 97.8
[2020-11-09 16:03] VITALS: BP 155/76; PULSE 78
== END 2020-11-09 16:04 | disposition home or self-care (01) ==
LOC: J7W 14:37 → JINFUSION 14:37
PROVIDERS: ATTEND Internal Medicine Infectious Disease
DX: E11.52 Type 2 diabetes mellitus with diabetic peripheral angiopathy with gangrene (principal); L08.9 Local infection of the skin and subcutaneous tissue, unspecified; L03.116 Cellulitis of left lower limb; Z79.4 Long term (current) use of insulin
CPT/HCPCS: 96365

== ENCOUNTER 2020-11-10 15:32 | Day surgery (SDC) | payer OTHER ==
[2020-11-10] MEDS ORDERED: DEXTROSE 5%-WATER 100 ML IVPB ONE (15:42)
[2020-11-10 15:58] VITALS: TEMP 98
[2020-11-10 17:08] VITALS: BP 128/70; PULSE 80
== END 2020-11-10 17:08 | disposition home or self-care (01) ==
LOC: JINFUSION 15:32 → J7W 15:33 → JINFUSION 17:08
PROVIDERS: ATTEND Internal Medicine Infectious Disease
DX: E11.52 Type 2 diabetes mellitus with diabetic peripheral angiopathy with gangrene (principal); L08.9 Local infection of the skin and subcutaneous tissue, unspecified; L03.116 Cellulitis of left lower limb; Z79.4 Long term (current) use of insulin
CPT/HCPCS: 96365

== ENCOUNTER 2020-11-11 15:13 | Day surgery (SDC) | payer OTHER ==
[2020-11-11] MEDS ORDERED: DEXTROSE 5%-WATER 100 ML IVPB ONE (15:31)
[2020-11-11 17:12] VITALS: BP 141/77; PULSE 84; TEMP 98.3
== END 2020-11-11 17:13 | disposition home or self-care (01) ==
LOC: JINFUSION 15:13 → J7W 15:14 → JINFUSION 17:13
PROVIDERS: ATTEND Internal Medicine Infectious Disease
DX: E11.52 Type 2 diabetes mellitus with diabetic peripheral angiopathy with gangrene (principal); L08.9 Local infection of the skin and subcutaneous tissue, unspecified; L03.116 Cellulitis of left lower limb; Z79.4 Long term (current) use of insulin
CPT/HCPCS: 96365

== ENCOUNTER 2020-11-12 14:37 | Day surgery (SDC) | payer OTHER ==
[2020-11-12] MEDS ORDERED: DEXTROSE 5%-WATER 100 ML IVPB ONE (15:55)
[2020-11-12 17:03] VITALS: BP 126/86; PULSE 87; TEMP 98
== END 2020-11-12 17:03 | disposition home or self-care (01) ==
LOC: JINFUSION 14:37 → J7W 15:09 → JINFUSION 17:03
PROVIDERS: ATTEND Internal Medicine Infectious Disease
DX: E11.52 Type 2 diabetes mellitus with diabetic peripheral angiopathy with gangrene (principal); L08.9 Local infection of the skin and subcutaneous tissue, unspecified; L03.116 Cellulitis of left lower limb; Z79.4 Long term (current) use of insulin
CPT/HCPCS: 36415; 85651; 86140; 96365; 96367

== ENCOUNTER 2020-11-13 12:54 | Day surgery (SDC) | payer OTHER ==
[2020-11-13] MEDS ORDERED: DEXTROSE 5%-WATER 100 ML IVPB ONE (13:13)
[2020-11-13] MEDS ORDERED: CEFTRIAXONE 2 GM in DEXTROSE 5%-WATER 100 ML IVPB ONE (13:15)
[2020-11-13 14:35] VITALS: BP 132/78; PULSE 78; TEMP 97.9
== END 2020-11-13 14:00 | disposition home or self-care (01) ==
LOC: JINFUSION 12:54 → J7W 12:55 → JINFUSION 14:00
PROVIDERS: ATTEND Internal Medicine Infectious Disease
DX: E11.52 Type 2 diabetes mellitus with diabetic peripheral angiopathy with gangrene (principal); L08.9 Local infection of the skin and subcutaneous tissue, unspecified; L03.116 Cellulitis of left lower limb; Z79.4 Long term (current) use of insulin
CPT/HCPCS: 96365

== ENCOUNTER 2020-11-14 15:03 | Day surgery (SDC) | payer OTHER ==
[2020-11-14] MEDS ORDERED: CEFTRIAXONE 2 GM in DEXTROSE 5%-WATER 100 ML IVPB ONE (15:15)
[2020-11-14] MEDS ORDERED: DEXTROSE 5%-WATER 100 ML IVPB ONE (15:37)
[2020-11-14 16:58] VITALS: BP 132/78; PULSE 80; TEMP 98.5
== END 2020-11-14 15:45 | disposition home or self-care (01) ==
LOC: JINFUSION 15:03 → J7W 15:04 → JINFUSION 15:45
PROVIDERS: ATTEND Internal Medicine Infectious Disease
DX: E11.52 Type 2 diabetes mellitus with diabetic peripheral angiopathy with gangrene (principal); L08.9 Local infection of the skin and subcutaneous tissue, unspecified; L03.116 Cellulitis of left lower limb; Z79.4 Long term (current) use of insulin
CPT/HCPCS: 96365

== ENCOUNTER → 2020-11-19 | Day surgery (SDC) | payer OTHER | END | disposition home or self-care (01) | LOC: JRADIR 11:18 | PROVIDERS: ATTEND Nurse Practitioner Acute Care | PROC: 02PY03Z Removal of Infusion Device from Great Vessel, Open Approach (ICD-10-PCS; principal; 2020-11-19) | DX: Z45.2 Encounter for adjustment and management of vascular access device (principal) | CPT/HCPCS: 36589 ==

== ENCOUNTER 2021-09-12 15:44 | Inpatient (IN) | payer OTHER ==
[2021-09-12] MEDS ORDERED: DOXYCYCLINE INJECTION 100 MG in DEXTROSE 5%-WATER 100 ML IVPB ONE (16:39)
[2021-09-12] MEDS ORDERED: PIPERACILLIN/TAZOB 3.375 GM 3.375 GM in DEXTROSE 5%-WATER - 50 ML IVPB ONE (16:40)
[2021-09-12] MEDS ORDERED: PIPERACILLIN/TAZOB 3.375 GM 3.375 GM/50 ML BAG IVPB ONE (17:45)
[2021-09-12 17:51] LABS: BASO % 0.8 % (0-2.0); EOS % 0.9 % (0-4.5); HEMATOCRIT 38.6 % (35.4-49); HEMOGLOBIN 12.6 GM/dL (11.7-16.9); LYMPH % 5.4 % (8-40); MCH 26.7 pg (25.7-33.7); MCHC 32.7 g/dl (32.0-35.9); MEAN CELL VOLUME 81.6 fl (80-96); MEAN PLT VOLUME 7.9 fl (7.5-11.1); MONO % 6.8 % (3.8-10.2); NEUT % 86.1 % (42.8-82.8); PLATELET COUNT 524 10^3/uL (134-434); RBC 4.72 M/mm3 (4.00-5.60); RDW 13.3 % (11.9-15.9); WHITE BLOOD COUNT 14.9 K/mm3 (4.0-10.0)
[2021-09-12 17:58] LABS: INR 1.54 (0.83-1.09); PROTHROMBIN TIME (PATIENT) 17.8 SEC (9.7-13.0)
[2021-09-12 18:01] LABS: ACTIVATED PTT 41.4 SECONDS (25.2-36.5)
[2021-09-12] MEDS ORDERED: DOXYCYCLINE HYCLATE 100 MG VIAL ONE (18:09)
[2021-09-12 18:16] LABS: ALBUMIN 3.2 g/dl (3.4-5.0); BLOOD UREA NITROGEN 27.4 mg/dL (7-18); CALCIUM 9.3 mg/dL (8.5-10.1)
[2021-09-12 18:19] LABS: CREATININE 1.3 mg/dL (0.55-1.3)
[2021-09-12 18:21] LABS: BILIRUBIN,TOTAL 1.4 mg/dL (0.2-1); TOT PROT 7.7 g/dl (6.4-8.2)
[2021-09-12] MEDS: INSULIN SLIDING SCALE (NOVOLOG) 1 VIAL SQ SCH (23:23)
[2021-09-12] MEDS ORDERED: CEFTRIAXONE 2 GM in SODIUM CHLORIDE 100 ML IVPB SCH (23:45)
[2021-09-13] MEDS ORDERED: CEFTRIAXONE 2 GM in DEXTROSE 5%-WATER 100 ML IVPB SCH (00:15)
[2021-09-13] MEDS: CLINDAMYCIN 600MG PREMIX IVPB 600 MG/50 ML BAG IVPB SCH ×3 (01:00→09:45)
[2021-09-13] MEDS ORDERED: ONDANSETRON 4 MG/2 ML VIAL IVPUSH ONE (01:37)
[2021-09-13] MEDS ORDERED: DEXTROSE 5%-WATER 100 ML IVPB ONE ×3 (01:51→11:42)
[2021-09-13] MEDS: INSULIN SLIDING SCALE (NOVOLOG) 1 VIAL SQ SCH ×3 (06:02→17:45)
[2021-09-13] MEDS: LISINOPRIL 20 MG TABLET PO SCH (09:46)
[2021-09-13] MEDS: ASPIRIN COATED 81 MG TABLET.EC PO SCH (09:47)
[2021-09-13 09:58] LABS: HEMATOCRIT 36.9 % (35.4-49); HEMOGLOBIN 12.2 GM/dL (11.7-16.9); MEAN CELL VOLUME 81.8 fl (80-96); MEAN PLT VOLUME 8.2 fl (7.5-11.1); PLATELET COUNT 495 10^3/uL (134-434); RBC 4.51 M/mm3 (4.00-5.60); RDW 13.5 % (11.9-15.9); WHITE BLOOD COUNT 11.6 K/mm3 (4.0-10.0)
[2021-09-13] MEDS ORDERED: ENOXAPARIN NA (PORCINE) 40 MG/0.4 ML DISP.SYRIN SQ SCH (10:00)
[2021-09-13] MEDS ORDERED: VANCOMYCIN PREMIX 1.5 GM 1,500 MG/300 ML BAG IVPB ONE (10:08)
[2021-09-13] MEDS ORDERED: PIPERACILLIN/TAZOB 4.5 GM 4.5 GM in DEXTROSE 5%-WATER 100 ML IVPB ONE (10:09)
[2021-09-13 10:27] LABS: ALBUMIN 2.8 g/dl (3.4-5.0); CALCIUM 9.2 mg/dL (8.5-10.1)
[2021-09-13 10:28] LABS: BLOOD UREA NITROGEN 28.1 mg/dL (7-18); MAGNESIUM 2.6 mg/dL (1.8-2.4)
[2021-09-13 10:30] LABS: PHOSPHOROUS 3.4 mg/dL (2.5-4.9)
[2021-09-13 10:32] LABS: CREATININE 1.6 mg/dL (0.55-1.3); TOT PROT 7.1 g/dl (6.4-8.2)
[2021-09-13] MEDS ORDERED: PIPERACILLIN/TAZOBACTAM 4.5 GM VIAL IVPB ONE (11:42)
[2021-09-13 15:17] LABS: EPI CELLS 14 /uL (0-25.1); HYALINE CASTS 5 /uL (0-3.1); URINE APPEARANCE CLEAR; URINE BACTERIA 8 /uL (0-1359); URINE BILIRUBIN 1+ (NEGATIVE); URINE COLOR DK YELLOW; URINE GLUCOSE (UA) NEGATIVE (NEGATIVE); URINE KETONE 1+ (NEGATIVE); URINE LEUK ESTERASE TRACE (NEGATIVE); URINE NITRITE NEGATIVE (NEGATIVE); URINE PROTEIN 1+ (NEGATIVE); URINE RBC 43 /uL (0-23.9); URINE WBC 13 /uL (0-25.8)
[2021-09-13] MEDS ORDERED: ONDANSETRON 4 MG/2 ML VIAL IVPB PRN (16:32)
[2021-09-13] MEDS ORDERED: DEXTROSE 5%-WATER - 50 ML IVPB ONE (19:09)
[2021-09-13] MEDS: PIPERACILLIN/TAZOB 3.375 GM 3.375 GM in DEXTROSE 5%-WATER - 50 ML IVPB SCH (19:09)
[2021-09-13] MEDS ORDERED: PIPERACILLIN/TAZOBACTAM 3.375 GM VIAL IVPB ONE (19:09)
[2021-09-13] MEDS: ATORVASTATIN CA 40 MG TABLET (FP) PO SCH (21:38)
[2021-09-13] MEDS: HEPARIN NA (PORCINE) 5,000 UNITS/ML 1ML VIAL SQ SCH (21:38)
[2021-09-14] MEDS ORDERED: DEXTROSE 5%-WATER - 50 ML IVPB ONE ×3 (01:01→16:46)
[2021-09-14] MEDS ORDERED: PIPERACILLIN/TAZOBACTAM 3.375 GM VIAL IVPB ONE ×3 (01:01→16:45)
[2021-09-14] MEDS: PIPERACILLIN/TAZOB 3.375 GM 3.375 GM in DEXTROSE 5%-WATER - 50 ML IVPB SCH ×3 (01:07→17:07)
[2021-09-14] MEDS: INSULIN SLIDING SCALE (NOVOLOG) 1 VIAL SQ SCH ×3 (06:02→16:32)
[2021-09-14] MEDS: HEPARIN NA (PORCINE) 5,000 UNITS/ML 1ML VIAL SQ SCH ×3 (06:02→21:39)
[2021-09-14] MEDS: LISINOPRIL 20 MG TABLET PO SCH (09:50)
[2021-09-14] MEDS: ASPIRIN COATED 81 MG TABLET.EC PO SCH (09:50)
[2021-09-14 10:04] LABS: HEMATOCRIT 34.5 % (35.4-49); HEMOGLOBIN 11.2 GM/dL (11.7-16.9); MCH 26.6 pg (25.7-33.7); MCHC 32.4 g/dl (32.0-35.9); MEAN CELL VOLUME 82.1 fl (80-96); MEAN PLT VOLUME 8.5 fl (7.5-11.1); PLATELET COUNT 482 10^3/uL (134-434); RBC 4.21 M/mm3 (4.00-5.60); RDW 13.5 % (11.9-15.9); WHITE BLOOD COUNT 8.5 K/mm3 (4.0-10.0)
[2021-09-14 10:35] LABS: ALBUMIN 2.6 g/dl (3.4-5.0); BLOOD UREA NITROGEN 31.4 mg/dL (7-18); CALCIUM 8.9 mg/dL (8.5-10.1); MAGNESIUM 2.7 mg/dL (1.8-2.4)
[2021-09-14 10:38] LABS: CREATININE 1.7 mg/dL (0.55-1.3)
[2021-09-14 10:40] LABS: BILIRUBIN,TOTAL 0.6 mg/dL (0.2-1); TOT PROT 6.5 g/dl (6.4-8.2)
[2021-09-14 11:06] LABS: ANISOCYTOSIS 0; HELMET CELLS 0; HOWELL-JOLLY BODIES 0; MACROCYTOSIS 0; OVALOCYTE 0; PLATELET ESTIMATE INCREASED; ROULEAU 0; SICKELED CELLS 0; TARGET CELLS 0; TEAR DROP CELLS 0; TOXIC GRANULATION 0
[2021-09-14] MEDS: SODIUM CHLORIDE 1,000 ML IV SCH (17:10)
[2021-09-14] MEDS: DOXYCYCLINE HYCLATE 100 MG CAPSULE PO SCH (17:12)
[2021-09-14] MEDS ORDERED: ONDANSETRON 4 MG/2 ML VIAL IVPB PRN (17:37)
[2021-09-14] MEDS: ATORVASTATIN CA 40 MG TABLET (FP) PO SCH (21:39)
[2021-09-14] MEDS ORDERED: VANCOMYCIN PREMIX 1.5 GM 1,500 MG/300 ML BAG IVPB SCH (22:00)
[2021-09-14] MEDS ORDERED: VANCOMYCIN HCL 1,500 MG in DEXTROSE 5%-WATER - 250 ML IVPB SCH (22:00)
[2021-09-15] MEDS ORDERED: PIPERACILLIN/TAZOBACTAM 3.375 GM VIAL IVPB ONE ×3 (01:37→17:04)
[2021-09-15] MEDS ORDERED: DEXTROSE 5%-WATER - 50 ML IVPB ONE ×3 (01:37→17:04)
[2021-09-15] MEDS: PIPERACILLIN/TAZOB 3.375 GM 3.375 GM in DEXTROSE 5%-WATER - 50 ML IVPB SCH ×3 (01:41→17:18)
[2021-09-15] MEDS: SODIUM CHLORIDE 1,000 ML IV SCH ×2 (03:42→17:00)
[2021-09-15] MEDS: HEPARIN NA (PORCINE) 5,000 UNITS/ML 1ML VIAL SQ SCH (05:25)
[2021-09-15] MEDS: INSULIN SLIDING SCALE (NOVOLOG) 1 VIAL SQ SCH ×3 (06:03→16:37)
[2021-09-15] MEDS: DOXYCYCLINE HYCLATE 100 MG CAPSULE PO SCH (09:09)
[2021-09-15] MEDS: ASPIRIN COATED 81 MG TABLET.EC PO SCH (10:55)
[2021-09-15 11:02] LABS: HEMATOCRIT 32.5 % (35.4-49); HEMOGLOBIN 10.9 GM/dL (11.7-16.9); MCH 27.6 pg (25.7-33.7); MCHC 33.7 g/dl (32.0-35.9); MEAN CELL VOLUME 81.9 fl (80-96); MEAN PLT VOLUME 7.9 fl (7.5-11.1); PLATELET COUNT 429 10^3/uL (134-434); RBC 3.96 M/mm3 (4.00-5.60); RDW 13.6 % (11.9-15.9); WHITE BLOOD COUNT 7.3 K/mm3 (4.0-10.0)
[2021-09-15 11:08] LABS: INR 1.21 (0.83-1.09); PROTHROMBIN TIME (PATIENT) 13.9 SEC (9.7-13.0)
[2021-09-15] MEDS ORDERED: INSULIN (NOVOLOG) ASPART 100 UNITS/ML 10ML VIAL ONE (11:20)
[2021-09-15 11:40] LABS: ANISOCYTOSIS 0; HELMET CELLS 0; HOWELL-JOLLY BODIES 0; MACROCYTOSIS 0; OVALOCYTE 0; PLATELET ESTIMATE NORMAL; ROULEAU 0; SICKELED CELLS 0; TARGET CELLS 0; TEAR DROP CELLS 0; TOXIC GRANULATION 0
[2021-09-15 11:48] LABS: CALCIUM 8.6 mg/dL (8.5-10.1)
[2021-09-15 11:49] LABS: ALBUMIN 2.6 g/dl (3.4-5.0); MAGNESIUM 2.2 mg/dL (1.8-2.4)
[2021-09-15 11:53] LABS: CREATININE 1.3 mg/dL (0.55-1.3)
[2021-09-15 11:54] LABS: TOT PROT 6.4 g/dl (6.4-8.2)
[2021-09-15] MEDS: PANTOPRAZOLE 40 MG TABLET PO SCH (17:18)
[2021-09-15] MEDS: ATORVASTATIN CA 40 MG TABLET (FP) PO SCH (21:26)
[2021-09-16] MEDS ORDERED: PIPERACILLIN/TAZOBACTAM 3.375 GM VIAL IVPB ONE ×4 (00:54→23:32)
[2021-09-16] MEDS ORDERED: DEXTROSE 5%-WATER - 50 ML IVPB ONE ×4 (00:54→23:32)
[2021-09-16] MEDS: PIPERACILLIN/TAZOB 3.375 GM 3.375 GM in DEXTROSE 5%-WATER - 50 ML IVPB SCH ×3 (01:06→17:55)
[2021-09-16] MEDS: INSULIN SLIDING SCALE (NOVOLOG) 1 VIAL SQ SCH ×3 (06:16→17:17)
[2021-09-16] MEDS ORDERED: LIDOCAINE HCL 1%, 10 MG/ML (20ML VIAL) ONE (09:04)
[2021-09-16] MEDS ORDERED: GENTAMICIN SO4 80 MG/2 ML VIAL ONE ×2 (09:04→10:05)
[2021-09-16] MEDS ORDERED: DEXAMETHASONE SOD PHOSPHATE 4 MG/1 ML VIAL ONE (09:04)
[2021-09-16] MEDS ORDERED: BUPIVACAINE HCL/PF 0.5% (5MG/ML) 10 ML VIAL ONE (09:05)
[2021-09-16] MEDS ORDERED: VANCOMYCIN 1,000 MG VIAL (RESTRICTED TO ID ONLY) ONE (09:13)
[2021-09-16] MEDS ORDERED: MIDAZOLAM HCL 2 MG/2 ML SINGLE DOSE VIAL ONE ×2 (09:42)
[2021-09-16] MEDS ORDERED: PROPOFOL 20 ML ONE ×2 (09:42)
[2021-09-16 09:44] LABS: HEMATOCRIT 32.5 % (35.4-49); HEMOGLOBIN 10.6 GM/dL (11.7-16.9); MCH 26.9 pg (25.7-33.7); MCHC 32.6 g/dl (32.0-35.9); MEAN CELL VOLUME 82.6 fl (80-96); PLATELET COUNT 415 10^3/uL (134-434); RBC 3.93 M/mm3 (4.00-5.60); RDW 13.2 % (11.9-15.9); WHITE BLOOD COUNT 6.4 K/mm3 (4.0-10.0)
[2021-09-16] MEDS ORDERED: LIDOCAINE HCL 1%, 10 MG/ML (20ML VIAL) SQ ONE (10:18)
[2021-09-16] MEDS: PANTOPRAZOLE 40 MG TABLET PO SCH (10:18)
[2021-09-16] MEDS: ASPIRIN COATED 81 MG TABLET.EC PO SCH (10:18)
[2021-09-16] MEDS ORDERED: BUPIVACAINE HCL/PF 0.5% (5MG/ML) 10 ML VIAL IJ ONE (10:18)
[2021-09-16 10:19] LABS: ALBUMIN 2.7 g/dl (3.4-5.0); CALCIUM 8.6 mg/dL (8.5-10.1)
[2021-09-16 10:20] LABS: MAGNESIUM 2.1 mg/dL (1.8-2.4)
[2021-09-16 10:22] LABS: PHOSPHOROUS 2.4 mg/dL (2.5-4.9)
[2021-09-16] MEDS ORDERED: THROMBIN (BOVINE) 5,000 UNIT VIAL TP ONE ×3 (10:22→11:34)
[2021-09-16 10:23] LABS: CREATININE 1.1 mg/dL (0.55-1.3)
[2021-09-16 10:24] LABS: BILIRUBIN,TOTAL 0.6 mg/dL (0.2-1); TOT PROT 6.2 g/dl (6.4-8.2)
[2021-09-16 11:17] LABS: ANISOCYTOSIS 2+; MACROCYTOSIS 0; OVALOCYTE 1+; PLATELET ESTIMATE NORMAL; TEAR DROP CELLS 1+
[2021-09-16] MEDS ORDERED: ONDANSETRON 4 MG/2 ML VIAL IVPB PRN (11:44)
[2021-09-16] MEDS ORDERED: ONDANSETRON 4 MG/2 ML VIAL IVPUSH PRN (11:48)
[2021-09-16 12:11] LABS: HEMATOCRIT 31.2 % (35.4-49); HEMOGLOBIN 10.4 GM/dL (11.7-16.9); MCH 27.1 pg (25.7-33.7); MCHC 33.2 g/dl (32.0-35.9); MEAN CELL VOLUME 81.5 fl (80-96); MEAN PLT VOLUME 7.5 fl (7.5-11.1); PLATELET COUNT 415 10^3/uL (134-434); RBC 3.83 M/mm3 (4.00-5.60); RDW 13.4 % (11.9-15.9); WHITE BLOOD COUNT 7.5 K/mm3 (4.0-10.0)
[2021-09-16] MEDS ORDERED: PIPERACILLIN/TAZOB 3.375 GM 3.375 GM in DEXTROSE 5%-WATER - 50 ML IVPB ONE (14:00)
[2021-09-16 14:36] LABS: ANISOCYTOSIS 0; MACROCYTOSIS 0; PLATELET ESTIMATE NORMAL
[2021-09-16] MEDS ORDERED: PIPERACILLIN/TAZOB 3.375 GM 3.375 GM in DEXTROSE 5%-WATER 100 ML IVPB SCH (18:00)
[2021-09-16] MEDS ORDERED: PIPERACILLIN/TAZOB 3.375 GM 3.375 GM in DEXTROSE 5%-WATER - 50 ML IVPB SCH (18:00)
[2021-09-16] MEDS: ATORVASTATIN CA 40 MG TABLET (FP) PO SCH (21:31)
[2021-09-17] MEDS: PIPERACILLIN/TAZOB 3.375 GM 3.375 GM in DEXTROSE 5%-WATER - 50 ML IVPB SCH ×3 (01:17→17:11)
[2021-09-17] MEDS: INSULIN SLIDING SCALE (NOVOLOG) 1 VIAL SQ SCH ×3 (06:00→16:42)
[2021-09-17] MEDS ORDERED: PIPERACILLIN/TAZOBACTAM 3.375 GM VIAL IVPB ONE ×2 (09:08→16:26)
[2021-09-17] MEDS ORDERED: DEXTROSE 5%-WATER - 50 ML IVPB ONE ×2 (09:08→16:26)
[2021-09-17] MEDS: PANTOPRAZOLE 40 MG TABLET PO SCH (09:26)
[2021-09-17] MEDS: ATORVASTATIN CA 40 MG TABLET (FP) PO SCH (21:10)
[2021-09-18] MEDS ORDERED: DEXTROSE 5%-WATER - 50 ML IVPB ONE ×3 (01:49→17:01)
[2021-09-18] MEDS ORDERED: PIPERACILLIN/TAZOBACTAM 3.375 GM VIAL IVPB ONE ×3 (01:49→17:01)
[2021-09-18] MEDS: PIPERACILLIN/TAZOB 3.375 GM 3.375 GM in DEXTROSE 5%-WATER - 50 ML IVPB SCH ×3 (02:00→17:15)
[2021-09-18] MEDS: INSULIN SLIDING SCALE (NOVOLOG) 1 VIAL SQ SCH ×3 (06:25→17:15)
[2021-09-18 08:51] LABS: BASO % 0.6 % (0-2.0); EOS % 6.2 % (0-4.5); HEMATOCRIT 33.2 % (35.4-49); HEMOGLOBIN 10.9 GM/dL (11.7-16.9); LYMPH % 16.3 % (8-40); MCH 26.9 pg (25.7-33.7); MCHC 32.8 g/dl (32.0-35.9); MEAN CELL VOLUME 81.8 fl (80-96); MEAN PLT VOLUME 7.7 fl (7.5-11.1); MONO % 7.2 % (3.8-10.2); NEUT % 69.7 % (42.8-82.8); PLATELET COUNT 360 10^3/uL (134-434); RBC 4.05 M/mm3 (4.00-5.60); RDW 13.1 % (11.9-15.9); WHITE BLOOD COUNT 7.1 K/mm3 (4.0-10.0)
[2021-09-18 09:15] LABS: CALCIUM 8.8 mg/dL (8.5-10.1)
[2021-09-18 09:16] LABS: ALBUMIN 2.6 g/dl (3.4-5.0); BLOOD UREA NITROGEN 10.6 mg/dL (7-18); MAGNESIUM 1.9 mg/dL (1.8-2.4)
[2021-09-18 09:19] LABS: CREATININE 1.1 mg/dL (0.55-1.3); PHOSPHOROUS 2.6 mg/dL (2.5-4.9)
[2021-09-18 09:20] LABS: TOT PROT 6.3 g/dl (6.4-8.2)
[2021-09-18 09:21] LABS: BILIRUBIN,TOTAL 0.6 mg/dL (0.2-1)
[2021-09-18] MEDS: PANTOPRAZOLE 40 MG TABLET PO SCH (09:38)
[2021-09-18] MEDS ORDERED: INSULIN (NOVOLOG) ASPART 100 UNITS/ML 10ML VIAL ONE (11:48)
[2021-09-18] MEDS: ATORVASTATIN CA 40 MG TABLET (FP) PO SCH (21:50)
[2021-09-19] MEDS ORDERED: DEXTROSE 5%-WATER - 50 ML IVPB ONE ×3 (01:22→17:18)
[2021-09-19] MEDS ORDERED: PIPERACILLIN/TAZOBACTAM 3.375 GM VIAL IVPB ONE ×3 (01:22→17:18)
[2021-09-19] MEDS: PIPERACILLIN/TAZOB 3.375 GM 3.375 GM in DEXTROSE 5%-WATER - 50 ML IVPB SCH ×3 (01:52→17:49)
[2021-09-19] MEDS: INSULIN SLIDING SCALE (NOVOLOG) 1 VIAL SQ SCH ×3 (06:05→17:16)
[2021-09-19 10:34] LABS: BASO % 0.4 % (0-2.0); EOS % 6.2 % (0-4.5); HEMATOCRIT 34.3 % (35.4-49); LYMPH % 15.8 % (8-40); MCH 26.5 pg (25.7-33.7); MCHC 32.1 g/dl (32.0-35.9); MEAN CELL VOLUME 82.4 fl (80-96); MONO % 6.4 % (3.8-10.2); NEUT % 71.2 % (42.8-82.8); PLATELET COUNT 362 10^3/uL (134-434); RBC 4.16 M/mm3 (4.00-5.60); RDW 13.5 % (11.9-15.9); WHITE BLOOD COUNT 7.8 K/mm3 (4.0-10.0)
[2021-09-19 11:01] LABS: BLOOD UREA NITROGEN 10.2 mg/dL (7-18); CALCIUM 8.8 mg/dL (8.5-10.1)
[2021-09-19 11:02] LABS: ALBUMIN 2.8 g/dl (3.4-5.0)
[2021-09-19] MEDS: PANTOPRAZOLE 40 MG TABLET PO SCH (11:02)
[2021-09-19 11:05] LABS: CREATININE 1.1 mg/dL (0.55-1.3)
[2021-09-19 11:06] LABS: TOT PROT 6.5 g/dl (6.4-8.2)
[2021-09-19 11:20] LABS: ANISOCYTOSIS 0; MACROCYTOSIS 0; PLATELET ESTIMATE NORMAL
[2021-09-19 13:42] VITALS: BMI 34.8
[2021-09-19] MEDS: ATORVASTATIN CA 40 MG TABLET (FP) PO SCH (21:37)
[2021-09-20] MEDS ORDERED: DEXTROSE 5%-WATER - 50 ML IVPB ONE ×3 (00:36→17:45)
[2021-09-20] MEDS ORDERED: PIPERACILLIN/TAZOBACTAM 3.375 GM VIAL IVPB ONE ×3 (00:36→17:45)
[2021-09-20] MEDS: PIPERACILLIN/TAZOB 3.375 GM 3.375 GM in DEXTROSE 5%-WATER - 50 ML IVPB SCH ×3 (01:07→18:02)
[2021-09-20] MEDS: INSULIN SLIDING SCALE (NOVOLOG) 1 VIAL SQ SCH ×3 (06:21→17:53)
[2021-09-20] MEDS: PANTOPRAZOLE 40 MG TABLET PO SCH (09:31)
[2021-09-20 10:36] LABS: BASO % 0.3 % (0-2.0); EOS % 6.1 % (0-4.5); HEMOGLOBIN 11.5 GM/dL (11.7-16.9); LYMPH % 14.4 % (8-40); MCH 27.5 pg (25.7-33.7); MCHC 33.8 g/dl (32.0-35.9); MEAN CELL VOLUME 81.4 fl (80-96); MEAN PLT VOLUME 7.9 fl (7.5-11.1); MONO % 6.7 % (3.8-10.2); NEUT % 72.5 % (42.8-82.8); PLATELET COUNT 321 10^3/uL (134-434); RBC 4.17 M/mm3 (4.00-5.60); RDW 13.1 % (11.9-15.9); WHITE BLOOD COUNT 7.6 K/mm3 (4.0-10.0)
[2021-09-20 11:04] LABS: BLOOD UREA NITROGEN 9.7 mg/dL (7-18)
[2021-09-20 11:05] LABS: MAGNESIUM 1.8 mg/dL (1.8-2.4)
[2021-09-20 11:07] LABS: CREATININE 1.1 mg/dL (0.55-1.3); PHOSPHOROUS 2.7 mg/dL (2.5-4.9)
[2021-09-20 11:09] LABS: BILIRUBIN,TOTAL 0.6 mg/dL (0.2-1); TOT PROT 6.8 g/dl (6.4-8.2)
[2021-09-20] MEDS ORDERED: INSULIN (NOVOLOG) ASPART 100 UNITS/ML 10ML VIAL ONE (17:17)
[2021-09-20] MEDS: ATORVASTATIN CA 40 MG TABLET (FP) PO SCH (21:47)
[2021-09-21] MEDS ORDERED: PIPERACILLIN/TAZOBACTAM 3.375 GM VIAL IVPB ONE ×2 (03:29→09:17)
[2021-09-21] MEDS ORDERED: DEXTROSE 5%-WATER - 50 ML IVPB ONE ×2 (03:29→09:17)
[2021-09-21] MEDS: PIPERACILLIN/TAZOB 3.375 GM 3.375 GM in DEXTROSE 5%-WATER - 50 ML IVPB SCH ×2 (03:30→11:55)
[2021-09-21] MEDS: INSULIN SLIDING SCALE (NOVOLOG) 1 VIAL SQ SCH ×2 (06:31→13:10)
[2021-09-21 06:58] VITALS: BP 102/67; PULSE 59; TEMP 98
[2021-09-21] MEDS ORDERED: CEFTRIAXONE 2 GM in DEXTROSE 5%-WATER 2 GM/100 ML BAG IVPB SCH (11:00)
[2021-09-21] MEDS ORDERED: DEXTROSE 5%-WATER 100 ML IVPB ONE (11:09)
[2021-09-21] MEDS: PANTOPRAZOLE 40 MG TABLET PO SCH (11:14)
== END 2021-09-21 14:59 | disposition home or self-care (01) | DRG 720 ==
LOC: JER 15:44 → JERBED 18:56 → J8W 22:42
PROVIDERS: ADMIT Internal Medicine; ATTEND Internal Medicine
PROC: 3E0102A Introduction of Anti-Infective Envelope into Subcutaneous Tissue, Open Approach (ICD-10-PCS; 2021-09-16)
PROC: 3E10X8Z Irrigation of Skin and Mucous Membranes using Irrigating Substance (ICD-10-PCS; 2021-09-16)
PROC: 02HV33Z Insertion of Infusion Device into Superior Vena Cava, Percutaneous Approach (ICD-10-PCS; 2021-09-16)
PROC: B518ZZA Fluoroscopy of Superior Vena Cava, Guidance (ICD-10-PCS; 2021-09-16)
PROC: 0JBR0ZZ Excision of Left Foot Subcutaneous Tissue and Fascia, Open Approach (ICD-10-PCS; principal; 2021-09-16 10:00)
PROC: 0SBN0ZX Excision of Left Metatarsal-Phalangeal Joint, Open Approach, Diagnostic (ICD-10-PCS; 2021-09-16 10:00)
DX: A40.1 Sepsis due to streptococcus, group B (principal); L97.528 Non-pressure chronic ulcer of other part of left foot with other specified severity; E11.621 Type 2 diabetes mellitus with foot ulcer; E11.69 Type 2 diabetes mellitus with other specified complication; M86.8X7 Other osteomyelitis, ankle and foot; B96.4 Proteus (mirabilis) (morganii) as the cause of diseases classified elsewhere; B95.7 Other staphylococcus as the cause of diseases classified elsewhere; I10 Essential (primary) hypertension; E78.5 Hyperlipidemia, unspecified; L03.116 Cellulitis of left lower limb; N17.9 Acute kidney failure, unspecified; M84.475A Pathological fracture, left foot, initial encounter for fracture; E11.52 Type 2 diabetes mellitus with diabetic peripheral angiopathy with gangrene; L02.612 Cutaneous abscess of left foot; I96 Gangrene, not elsewhere classified; Z89.422 Acquired absence of other left toe(s)
CPT/HCPCS: 36415; 36569; 73610-TC-LT-FY; 73630-TC-LT; 73718-TC-LT; 77001-TC-FY; 80053; 80061; 81003; 82962; 83036; 83735; 84100; 85025; 85027; 85610; 85730; 86850; 86900; 86901; 87040; 87070; 87075; 87077; 87186; 87205; 88304-TC; 88311-TC; 93005; 93010; 94760; 97116-GP; 97161-GP; 99285-25; C1751; C9803; G0480; J1644; U0003; U0005

== ENCOUNTER 2022-02-12 16:17 | Inpatient (IN) | payer OTHER ==
[2022-02-12] MEDS ORDERED: ACETAMINOPHEN 1000 MG/100 ML BAG IVPB ONE (20:15)
[2022-02-12] MEDS ORDERED: CEFTRIAXONE 2 GM in DEXTROSE 5%-WATER - 50 ML IVPB ONE (20:19)
[2022-02-12] MEDS ORDERED: VANCOMYCIN HCL 1,500 MG in DEXTROSE 5%-WATER - 500 ML IVPB ONE (20:19)
[2022-02-12] MEDS ORDERED: CEFTRIAXONE 2 GM/100 ML BAG IVPB ONE (21:25)
[2022-02-12] MEDS ORDERED: ACETAMINOPHEN INJECTION 100 ML IVPB ONE (21:25)
[2022-02-12 21:26] LABS: BASO % 0.9 % (0-2.0); EOS % 2.7 % (0-4.5); HEMOGLOBIN 11.5 GM/dL (11.7-16.9); LYMPH % 10.6 % (8-40); MCH 27.1 pg (25.7-33.7); MCHC 33.8 g/dl (32.0-35.9); MEAN CELL VOLUME 80.1 fl (80-96); MEAN PLT VOLUME 7.9 fl (7.5-11.1); NEUT % 79.8 % (42.8-82.8); PLATELET COUNT 367 10^3/uL (134-434); RBC 4.25 M/mm3 (4.00-5.60); RDW 13.2 % (11.9-15.9); WHITE BLOOD COUNT 11.5 K/mm3 (4.0-10.0)
[2022-02-12] MEDS ORDERED: LACTATED RINGERS SOLUTION 1000 ML INFUS.BAG IV ONE (21:26)
[2022-02-12] MEDS ORDERED: CLINDAMYCIN 600MG PREMIX IVPB 600 MG/50 ML BAG IVPB ONE ×2 (21:36→23:30)
[2022-02-12 22:10] LABS: ERYTHROCYTE SEDIMENTATION RATE 91 mm/hr (0-20)
[2022-02-12 22:20] LABS: ALBUMIN 3.2 g/dl (3.4-5.0); BLOOD UREA NITROGEN 17.5 mg/dL (7-18); CALCIUM 8.3 mg/dL (8.5-10.1); MAGNESIUM 2.3 mg/dL (1.8-2.4)
[2022-02-12 22:23] LABS: CREATININE 1.2 mg/dL (0.55-1.3)
[2022-02-12 22:25] LABS: TOT PROT 7.2 g/dl (6.4-8.2)
[2022-02-13] MEDS: LISINOPRIL 10 MG TABLET PO SCH ×2 (01:21→12:10)
[2022-02-13] MEDS: CLINDAMYCIN 900 MG PREMIX IVPB 900 MG/50 ML BAG IVPB SCH ×2 (01:21→12:09)
[2022-02-13] MEDS: INSULIN (NOVOLOG) ASPART 100 UNITS/ML 10ML VIAL SQ SCH ×4 (06:44→22:51)
[2022-02-13 09:42] LABS: BASO % 0.4 % (0-2.0); EOS % 3.5 % (0-4.5); HEMATOCRIT 33.6 % (35.4-49); HEMOGLOBIN 11.3 GM/dL (11.7-16.9); LYMPH % 4.1 % (8-40); MCH 26.9 pg (25.7-33.7); MCHC 33.5 g/dl (32.0-35.9); MEAN CELL VOLUME 80.1 fl (80-96); MEAN PLT VOLUME 8.4 fl (7.5-11.1); MONO % 5.5 % (3.8-10.2); NEUT % 86.5 % (42.8-82.8); PLATELET COUNT 325 10^3/uL (134-434); RBC 4.19 M/mm3 (4.00-5.60); RDW 13.3 % (11.9-15.9); WHITE BLOOD COUNT 9.5 K/mm3 (4.0-10.0)
[2022-02-13] MEDS ORDERED: HYDROCHLOROTHIAZIDE 12.5 MG CAPSULE (FP) PO SCH (10:00)
[2022-02-13] MEDS ORDERED: CEFTRIAXONE 2 GM in DEXTROSE 5%-WATER 100 ML IVPB SCH (10:00)
[2022-02-13 10:10] LABS: CALCIUM 8.5 mg/dL (8.5-10.1)
[2022-02-13 10:11] LABS: ALBUMIN 2.8 g/dl (3.4-5.0); BLOOD UREA NITROGEN 16.9 mg/dL (7-18); CHOLESTEROL 173 mg/dL (50-200); MAGNESIUM 2.3 mg/dL (1.8-2.4)
[2022-02-13 10:12] LABS: TRIGLYCERIDES 133 mg/dL (0-150)
[2022-02-13 10:13] LABS: LDL CHOLESTEROL (ONLY SJRH) 125 mg/dL (5-100)
[2022-02-13 10:14] LABS: HDL CHOLESTEROL 34 mg/dL (40-60); PHOSPHOROUS 2.5 mg/dL (2.5-4.9)
[2022-02-13 10:15] LABS: BILIRUBIN,TOTAL 1.9 mg/dL (0.2-1); TOT PROT 6.7 g/dl (6.4-8.2)
[2022-02-13] MEDS ORDERED: DEXTROSE 5%-WATER 100 ML IVPB ONE (11:50)
[2022-02-13] MEDS ORDERED: VANCOMYCIN HCL 1,500 MG in DEXTROSE 5%-WATER - 500 ML IVPB SCH (13:15)
[2022-02-13] MEDS: VANCOMYCIN PREMIX 1.5 GM 1,500 MG/300 ML BAG IVPB SCH (15:11)
[2022-02-13] MEDS ORDERED: PIPERACILLIN/TAZOBACTAM 3.375 GM VIAL IVPB ONE (16:33)
[2022-02-13] MEDS ORDERED: DEXTROSE 5%-WATER - 50 ML IVPB ONE (16:34)
[2022-02-13] MEDS: PIPERACILLIN/TAZOB 3.375 GM 3.375 GM in DEXTROSE 5%-WATER - 50 ML IVPB SCH (17:37)
[2022-02-13] MEDS: HYDROCHLOROTHIAZIDE 12.5 MG CAPSULE (FP) PO SCH (22:51)
[2022-02-14] MEDS ORDERED: DEXTROSE 5%-WATER - 50 ML IVPB ONE ×3 (01:27→16:17)
[2022-02-14] MEDS ORDERED: PIPERACILLIN/TAZOBACTAM 3.375 GM VIAL IVPB ONE ×3 (01:27→16:16)
[2022-02-14] MEDS: PIPERACILLIN/TAZOB 3.375 GM 3.375 GM in DEXTROSE 5%-WATER - 50 ML IVPB SCH ×3 (01:50→17:15)
[2022-02-14] MEDS: INSULIN (NOVOLOG) ASPART 100 UNITS/ML 10ML VIAL SQ SCH ×4 (06:04→21:22)
[2022-02-14] MEDS: LISINOPRIL 10 MG TABLET PO SCH (10:30)
[2022-02-14 12:17] LABS: BASO % 0.6 % (0-2.0); EOS % 5.2 % (0-4.5); HEMATOCRIT 31.3 % (35.4-49); HEMOGLOBIN 10.9 GM/dL (11.7-16.9); MCH 27.6 pg (25.7-33.7); MCHC 34.8 g/dl (32.0-35.9); MEAN CELL VOLUME 79.4 fl (80-96); MEAN PLT VOLUME 7.9 fl (7.5-11.1); MONO % 6.3 % (3.8-10.2); NEUT % 79.9 % (42.8-82.8); PLATELET COUNT 355 10^3/uL (134-434); RBC 3.95 M/mm3 (4.00-5.60); RDW 13.2 % (11.9-15.9)
[2022-02-14] MEDS: VANCOMYCIN PREMIX 1.5 GM 1,500 MG/300 ML BAG IVPB SCH (12:22)
[2022-02-14 13:08] LABS: INR 1.22 (0.83-1.09); PROTHROMBIN TIME (PATIENT) 14.1 SEC (9.7-13.0)
[2022-02-14 13:10] LABS: ACTIVATED PTT 38.2 SECONDS (25.2-36.5)
[2022-02-14] MEDS: HYDROCHLOROTHIAZIDE 12.5 MG CAPSULE (FP) PO SCH (21:18)
[2022-02-14] MEDS ORDERED: ATORVASTATIN CA 40 MG TABLET (FP) PO SCH (22:00)
[2022-02-14] MEDS ORDERED: BISMUTH SUBSALICYLATE 262 MG/15 ML BTL PO ONE (23:22)
[2022-02-14] MEDS ORDERED: ONDANSETRON 4 MG/2 ML VIAL IVPUSH ONE (23:22)
[2022-02-15] MEDS ORDERED: DEXTROSE 5%-WATER - 50 ML IVPB ONE ×3 (02:26→16:57)
[2022-02-15] MEDS ORDERED: PIPERACILLIN/TAZOBACTAM 3.375 GM VIAL IVPB ONE ×4 (02:26→16:56)
[2022-02-15] MEDS: PIPERACILLIN/TAZOB 3.375 GM 3.375 GM in DEXTROSE 5%-WATER - 50 ML IVPB SCH ×3 (02:51→17:36)
[2022-02-15] MEDS: INSULIN (NOVOLOG) ASPART 100 UNITS/ML 10ML VIAL SQ SCH ×2 (06:23→12:14)
[2022-02-15 08:16] LABS: BASO % 0.7 % (0-2.0); EOS % 1.7 % (0-4.5); HEMATOCRIT 33.3 % (35.4-49); HEMOGLOBIN 11.2 GM/dL (11.7-16.9); LYMPH % 6.5 % (8-40); MCHC 33.6 g/dl (32.0-35.9); MEAN CELL VOLUME 80.1 fl (80-96); MEAN PLT VOLUME 7.9 fl (7.5-11.1); MONO % 5.9 % (3.8-10.2); NEUT % 85.2 % (42.8-82.8); PLATELET COUNT 390 10^3/uL (134-434); RBC 4.16 M/mm3 (4.00-5.60); RDW 13.5 % (11.9-15.9); WHITE BLOOD COUNT 9.1 K/mm3 (4.0-10.0)
[2022-02-15 08:21] LABS: INR 1.14 (0.83-1.09); PROTHROMBIN TIME (PATIENT) 13.1 SEC (9.7-13.0)
[2022-02-15 08:23] LABS: ACTIVATED PTT 37.9 SECONDS (25.2-36.5)
[2022-02-15 08:32] LABS: CALCIUM 8.5 mg/dL (8.5-10.1)
[2022-02-15] MEDS: LISINOPRIL 10 MG TABLET PO SCH (09:41)
[2022-02-15] MEDS ORDERED: HEPARIN NA (PORCINE) 5,000 UNITS/ML 1ML VIAL ONE (10:53)
[2022-02-15] MEDS ORDERED: LIDOCAINE HCL 1%, 10 MG/ML (20ML VIAL) ONE (10:53)
[2022-02-15] MEDS ORDERED: PROPOFOL 20 ML ONE (10:53)
[2022-02-15] MEDS ORDERED: MIDAZOLAM HCL 2 MG/2 ML SINGLE DOSE VIAL ONE (10:53)
[2022-02-15] MEDS ORDERED: VANCOMYCIN 1,000 MG VIAL (RESTRICTED TO ID ONLY) ONE ×3 (10:53→11:23)
[2022-02-15] MEDS ORDERED: ceFAZolin SODIUM 1 GM VIAL IVPB ONE (11:15)
[2022-02-15 13:13] LABS: BASO % 0.5 % (0-2.0); HEMATOCRIT 32.2 % (35.4-49); HEMOGLOBIN 11.2 GM/dL (11.7-16.9); LYMPH % 9.3 % (8-40); MCH 27.6 pg (25.7-33.7); MCHC 34.9 g/dl (32.0-35.9); MEAN CELL VOLUME 79.1 fl (80-96); MEAN PLT VOLUME 7.7 fl (7.5-11.1); MONO % 7.3 % (3.8-10.2); NEUT % 79.9 % (42.8-82.8); PLATELET COUNT 371 10^3/uL (134-434); RBC 4.07 M/mm3 (4.00-5.60); RDW 13.4 % (11.9-15.9); WHITE BLOOD COUNT 8.2 K/mm3 (4.0-10.0)
[2022-02-15] MEDS ORDERED: VANCOMYCIN PREMIX 1.5 GM 1,500 MG/300 ML BAG IVPB SCH (13:20)
[2022-02-15] MEDS ORDERED: MAG HYDROX/AL HYDROX/SIMETH -MYLANTA- ORAL SUSPENSION PO PRN (13:25)
[2022-02-15] MEDS ORDERED: INSULIN (NOVOLOG) ASPART 100 UNITS/ML 10ML VIAL SQ SCH (16:30)
[2022-02-15] MEDS: HYDROCHLOROTHIAZIDE 12.5 MG CAPSULE (FP) PO SCH (21:39)
[2022-02-15] MEDS: ATORVASTATIN CA 40 MG TABLET (FP) PO SCH (21:39)
[2022-02-15] MEDS ORDERED: MAG HYDROX/AL HYDROX/SIMETH 30 ML UNIT-DOSE CUP PO PRN (22:22)
[2022-02-16] MEDS ORDERED: PIPERACILLIN/TAZOBACTAM 3.375 GM VIAL IVPB ONE ×3 (01:29→18:27)
[2022-02-16] MEDS ORDERED: DEXTROSE 5%-WATER - 50 ML IVPB ONE ×3 (01:29→18:28)
[2022-02-16] MEDS: PIPERACILLIN/TAZOB 3.375 GM 3.375 GM in DEXTROSE 5%-WATER - 50 ML IVPB SCH ×3 (01:57→18:30)
[2022-02-16] MEDS: INSULIN SLIDING SCALE (NOVOLOG) 1 VIAL SQ SCH ×3 (06:00→17:52)
[2022-02-16] MEDS: LISINOPRIL 10 MG TABLET PO SCH (10:22)
[2022-02-16] MEDS: ENOXAPARIN NA (PORCINE) 40 MG/0.4 ML DISP.SYRIN SQ SCH (10:23)
[2022-02-16 11:13] LABS: BASO % 0.5 % (0-2.0); EOS % 3.8 % (0-4.5); HEMATOCRIT 33.6 % (35.4-49); HEMOGLOBIN 11.3 GM/dL (11.7-16.9); LYMPH % 11.4 % (8-40); MCH 27.1 pg (25.7-33.7); MCHC 33.5 g/dl (32.0-35.9); MEAN CELL VOLUME 80.7 fl (80-96); MEAN PLT VOLUME 8.1 fl (7.5-11.1); MONO % 6.9 % (3.8-10.2); NEUT % 77.4 % (42.8-82.8); PLATELET COUNT 402 10^3/uL (134-434); RBC 4.16 M/mm3 (4.00-5.60); RDW 13.4 % (11.9-15.9); WHITE BLOOD COUNT 7.7 K/mm3 (4.0-10.0)
[2022-02-16 11:18] LABS: BLOOD UREA NITROGEN 15.9 mg/dL (7-18); CALCIUM 8.8 mg/dL (8.5-10.1)
[2022-02-16 11:21] LABS: CREATININE 1.2 mg/dL (0.55-1.3)
[2022-02-16] MEDS: HYDROCHLOROTHIAZIDE 12.5 MG CAPSULE (FP) PO SCH (22:13)
[2022-02-16] MEDS: ATORVASTATIN CA 40 MG TABLET (FP) PO SCH (22:13)
[2022-02-17] MEDS ORDERED: PIPERACILLIN/TAZOBACTAM 3.375 GM VIAL IVPB ONE ×2 (00:42→09:11)
[2022-02-17] MEDS ORDERED: DEXTROSE 5%-WATER - 50 ML IVPB ONE ×2 (00:43→09:11)
[2022-02-17] MEDS: PIPERACILLIN/TAZOB 3.375 GM 3.375 GM in DEXTROSE 5%-WATER - 50 ML IVPB SCH ×2 (01:35→09:32)
[2022-02-17] MEDS: INSULIN SLIDING SCALE (NOVOLOG) 1 VIAL SQ SCH ×3 (06:18→16:40)
[2022-02-17] MEDS: ENOXAPARIN NA (PORCINE) 40 MG/0.4 ML DISP.SYRIN SQ SCH (09:32)
[2022-02-17] MEDS: LISINOPRIL 10 MG TABLET PO SCH (09:32)
[2022-02-17 14:05] LABS: BASO % 0.7 % (0-2.0); HEMATOCRIT 32.3 % (35.4-49); HEMOGLOBIN 11.1 GM/dL (11.7-16.9); LYMPH % 17.2 % (8-40); MCH 27.4 pg (25.7-33.7); MCHC 34.5 g/dl (32.0-35.9); MEAN CELL VOLUME 79.5 fl (80-96); MEAN PLT VOLUME 7.3 fl (7.5-11.1); MONO % 6.8 % (3.8-10.2); NEUT % 70.3 % (42.8-82.8); PLATELET COUNT 392 10^3/uL (134-434); RBC 4.06 M/mm3 (4.00-5.60); RDW 13.3 % (11.9-15.9); WHITE BLOOD COUNT 7.2 K/mm3 (4.0-10.0)
[2022-02-17 14:19] LABS: CALCIUM 8.7 mg/dL (8.5-10.1)
[2022-02-17 14:21] LABS: BLOOD UREA NITROGEN 14.4 mg/dL (7-18)
[2022-02-17 14:24] LABS: CREATININE 1.2 mg/dL (0.55-1.3)
[2022-02-17] MEDS ORDERED: DEXTROSE 5%-WATER 100 ML IVPB ONE ×2 (15:06→15:25)
[2022-02-17] MEDS: CEFTRIAXONE 2 GM in DEXTROSE 5%-WATER 2 GM/100 ML BAG IVPB SCH (15:26)
[2022-02-17] MEDS ORDERED: ACETAMINOPHEN 325 MG TABLET (FP) PO ONE (23:08)
[2022-02-17] MEDS: HYDROCHLOROTHIAZIDE 12.5 MG CAPSULE (FP) PO SCH (23:14)
[2022-02-17] MEDS: ATORVASTATIN CA 40 MG TABLET (FP) PO SCH (23:14)
[2022-02-18] MEDS: INSULIN SLIDING SCALE (NOVOLOG) 1 VIAL SQ SCH ×3 (06:02→16:54)
[2022-02-18 08:33] LABS: EOS % 4.8 % (0-4.5); HEMATOCRIT 33.7 % (35.4-49); HEMOGLOBIN 11.6 GM/dL (11.7-16.9); LYMPH % 11.1 % (8-40); MCH 27.2 pg (25.7-33.7); MCHC 34.4 g/dl (32.0-35.9); MEAN CELL VOLUME 79.1 fl (80-96); MEAN PLT VOLUME 7.4 fl (7.5-11.1); MONO % 6.1 % (3.8-10.2); PLATELET COUNT 422 10^3/uL (134-434); RBC 4.26 M/mm3 (4.00-5.60); RDW 13.4 % (11.9-15.9); WHITE BLOOD COUNT 7.2 K/mm3 (4.0-10.0)
[2022-02-18 08:59] LABS: CALCIUM 9.2 mg/dL (8.5-10.1)
[2022-02-18 09:00] LABS: BLOOD UREA NITROGEN 11.9 mg/dL (7-18)
[2022-02-18] MEDS ORDERED: DEXTROSE 5%-WATER 100 ML IVPB ONE (09:31)
[2022-02-18] MEDS: ENOXAPARIN NA (PORCINE) 40 MG/0.4 ML DISP.SYRIN SQ SCH (09:34)
[2022-02-18] MEDS: LISINOPRIL 10 MG TABLET PO SCH (09:34)
[2022-02-18] MEDS: CEFTRIAXONE 2 GM in DEXTROSE 5%-WATER 2 GM/100 ML BAG IVPB SCH (09:37)
[2022-02-18] MEDS ORDERED: ACETAMINOPHEN 1000 MG/100 ML BAG IVPB ONE (12:00)
[2022-02-18] MEDS: oxyCODONE HCL 5 MG TABLET PO PRN (13:40)
[2022-02-18 21:33] VITALS: BMI 40.3
[2022-02-18] MEDS: valACYclovir HCL 500 MG TABLET (FP) PO SCH (22:50)
[2022-02-18] MEDS: HYDROCHLOROTHIAZIDE 12.5 MG CAPSULE (FP) PO SCH (22:50)
[2022-02-18] MEDS: ATORVASTATIN CA 40 MG TABLET (FP) PO SCH (22:50)
[2022-02-19] MEDS: valACYclovir HCL 500 MG TABLET (FP) PO SCH ×3 (06:27→21:27)
[2022-02-19] MEDS: INSULIN SLIDING SCALE (NOVOLOG) 1 VIAL SQ SCH ×3 (06:29→16:52)
[2022-02-19 09:06] LABS: BASO % 0.5 % (0-2.0); EOS % 5.5 % (0-4.5); HEMOGLOBIN 11.5 GM/dL (11.7-16.9); LYMPH % 13.4 % (8-40); MCH 26.9 pg (25.7-33.7); MCHC 33.9 g/dl (32.0-35.9); MEAN CELL VOLUME 79.4 fl (80-96); MEAN PLT VOLUME 7.9 fl (7.5-11.1); MONO % 6.2 % (3.8-10.2); NEUT % 74.4 % (42.8-82.8); PLATELET COUNT 423 10^3/uL (134-434); RBC 4.28 M/mm3 (4.00-5.60); RDW 13.2 % (11.9-15.9); WHITE BLOOD COUNT 6.8 K/mm3 (4.0-10.0)
[2022-02-19] MEDS ORDERED: DEXTROSE 5%-WATER 100 ML IVPB ONE (09:26)
[2022-02-19] MEDS: LISINOPRIL 10 MG TABLET PO SCH (09:39)
[2022-02-19] MEDS: CEFTRIAXONE 2 GM in DEXTROSE 5%-WATER 2 GM/100 ML BAG IVPB SCH (09:39)
[2022-02-19] MEDS: MULTIVITAMINS (DAILY MVI) TABLET (FP) PO SCH (09:39)
[2022-02-19] MEDS: ENOXAPARIN NA (PORCINE) 40 MG/0.4 ML DISP.SYRIN SQ SCH (09:39)
[2022-02-19] MEDS: oxyCODONE HCL 5 MG TABLET PO PRN (10:36)
[2022-02-19] MEDS: ATORVASTATIN CA 40 MG TABLET (FP) PO SCH (21:28)
[2022-02-19] MEDS: HYDROCHLOROTHIAZIDE 12.5 MG CAPSULE (FP) PO SCH (21:28)
[2022-02-20] MEDS: INSULIN SLIDING SCALE (NOVOLOG) 1 VIAL SQ SCH ×3 (06:11→17:23)
[2022-02-20] MEDS ORDERED: DEXTROSE 5%-WATER 100 ML IVPB ONE (10:41)
[2022-02-20] MEDS: CEFTRIAXONE 2 GM in DEXTROSE 5%-WATER 2 GM/100 ML BAG IVPB SCH (10:47)
[2022-02-20] MEDS: ENOXAPARIN NA (PORCINE) 40 MG/0.4 ML DISP.SYRIN SQ SCH (10:47)
[2022-02-20] MEDS: MULTIVITAMINS (DAILY MVI) TABLET (FP) PO SCH (10:47)
[2022-02-20] MEDS: LISINOPRIL 10 MG TABLET PO SCH (10:47)
[2022-02-20] MEDS: valACYclovir HCL 500 MG TABLET (FP) PO SCH ×2 (11:00→21:11)
[2022-02-20] MEDS: oxyCODONE HCL 5 MG TABLET PO PRN (11:00)
[2022-02-20] MEDS: ATORVASTATIN CA 40 MG TABLET (FP) PO SCH (21:10)
[2022-02-20] MEDS: HYDROCHLOROTHIAZIDE 12.5 MG CAPSULE (FP) PO SCH (21:11)
[2022-02-21] MEDS: INSULIN SLIDING SCALE (NOVOLOG) 1 VIAL SQ SCH ×3 (06:06→16:40)
[2022-02-21] MEDS ORDERED: DEXTROSE 5%-WATER 100 ML IVPB ONE (09:10)
[2022-02-21] MEDS: ENOXAPARIN NA (PORCINE) 40 MG/0.4 ML DISP.SYRIN SQ SCH (09:57)
[2022-02-21] MEDS: CEFTRIAXONE 2 GM in DEXTROSE 5%-WATER 2 GM/100 ML BAG IVPB SCH (09:57)
[2022-02-21] MEDS: MULTIVITAMINS (DAILY MVI) TABLET (FP) PO SCH (09:58)
[2022-02-21] MEDS: valACYclovir HCL 500 MG TABLET (FP) PO SCH (09:58)
[2022-02-21] MEDS: LISINOPRIL 10 MG TABLET PO SCH (09:58)
[2022-02-21 15:13] VITALS: BP 133/67; PULSE 74; TEMP 98.4
== END 2022-02-21 17:59 | disposition home or self-care (01) | DRG 314 ==
LOC: JER 16:17 → JERBED 21:42 → J5S 02-13 00:48 → J7W 02-20 23:51
PROVIDERS: ADMIT Internal Medicine; ATTEND Internal Medicine
PROC: 0Y9B0ZZ Drainage of Left Lower Extremity, Open Approach (ICD-10-PCS; 2022-02-15)
PROC: 0JBP0ZZ Excision of Left Lower Leg Subcutaneous Tissue and Fascia, Open Approach (ICD-10-PCS; 2022-02-15)
PROC: 0QBP0ZZ Excision of Left Metatarsal, Open Approach (ICD-10-PCS; principal; 2022-02-15 10:00)
PROC: 05HB33Z Insertion of Infusion Device into Right Basilic Vein, Percutaneous Approach (ICD-10-PCS; 2022-02-21)
PROC: B51MZZA Fluoroscopy of Right Upper Extremity Veins, Guidance (ICD-10-PCS; 2022-02-21)
DX: E11.69 Type 2 diabetes mellitus with other specified complication (principal); M86.9 Osteomyelitis, unspecified; E11.621 Type 2 diabetes mellitus with foot ulcer; L03.116 Cellulitis of left lower limb; Z68.41 Body mass index [BMI] 40.0-44.9, adult; E66.9 Obesity, unspecified; I10 Essential (primary) hypertension; L02.612 Cutaneous abscess of left foot; E78.5 Hyperlipidemia, unspecified
CPT/HCPCS: 36415; 36569; 73630-TC-LT; 73718-TC-LT; 80048; 80053; 80061; 82962; 83036; 83605; 83735; 84100; 84484; 85025; 85610; 85651; 85730; 86140; 86850; 86900; 86901; 87040; 87070; 87186; 87205; 88300-TC; 88304-TC; 88311-TC; 93005; 93010; 94010; 97116-GP; 97161-GP; 99285-25; C9803-CS; J1644; U0003; U0005

== ENCOUNTER 2022-12-22 13:06 | Inpatient (IN) | payer OTHER ==
[2022-12-22] MEDS ORDERED: PIPERACILLIN/TAZOB 4.5 GM 4.5 GM in DEXTROSE 5%-WATER 100 ML IVPB ONE (13:51)
[2022-12-22] MEDS ORDERED: VANCOMYCIN 1 GM in D5W (PRE-DOCKED) 1,000 MG/250 ML (RESTRICTED TO ID ONLY IVPB ONE (13:51)
[2022-12-22] MEDS ORDERED: VANCOMYCIN/WATER FOR INJ (PEG) 1,000 MG/200 ML BAG IVPB ONE (14:40)
[2022-12-22] MEDS ORDERED: PIPERACILLIN/TAZOB 4.5 GM 4.5 GM/100 ML BAG IVPB ONE (14:40)
[2022-12-22] MEDS ORDERED: ONDANSETRON 4 MG/2 ML VIAL IVPUSH ONE (14:59)
[2022-12-22] MEDS ORDERED: ONDANSETRON 4 MG/2 ML VIAL ONE (15:01)
[2022-12-22 15:11] LABS: BASO % 0.7 % (0-2.0); EOS % 3.8 % (0-4.5); HEMATOCRIT 36.7 % (35.4-49); HEMOGLOBIN 12.6 GM/dL (11.7-16.9); LYMPH % 14.8 % (8-40); MCH 27.5 pg (25.7-33.7); MCHC 34.2 g/dl (32.0-35.9); MEAN CELL VOLUME 80.5 fl (80-96); MEAN PLT VOLUME 8.3 fl (7.5-11.1); MONO % 5.6 % (3.8-10.2); NEUT % 75.1 % (42.8-82.8); PLATELET COUNT 360 10^3/uL (134-434); RBC 4.57 M/mm3 (4.00-5.60); RDW 13.2 % (11.9-15.9); WHITE BLOOD COUNT 7.1 K/mm3 (4.0-10.0)
[2022-12-22] MEDS ORDERED: SODIUM CHLORIDE 0.9% 500 ML INFUS.BAG IV ONE (15:12)
[2022-12-22 15:38] LABS: CHLORIDE 100 mmol/L (98-107); POTASSIUM 4.8 mmol/L (3.5-5.1); SODIUM 136 mmol/L (136-145)
[2022-12-22 15:40] LABS: ALBUMIN 3.3 g/dl (3.4-5.0); ANION GAP 5 MMOL/L (8-16); CALCIUM 8.8 mg/dL (8.5-10.1); CO2 30 mmol/L (21-32)
[2022-12-22 15:41] LABS: BLOOD UREA NITROGEN 16.1 mg/dL (7-18)
[2022-12-22 15:43] LABS: CREATININE 1.4 mg/dL (0.55-1.3)
[2022-12-22 15:44] LABS: SGOT/AST 23 U/L (15-37); SGPT/ALT 24 U/L (13-61)
[2022-12-22 15:45] LABS: TOT PROT 7.5 g/dl (6.4-8.2)
[2022-12-22 15:46] LABS: ALK PHOS 179 U/L (45-117)
[2022-12-22 15:47] LABS: GLUCOSE,RANDOM 423 mg/dL (74-106)
[2022-12-22 15:50] LABS: ERYTHROCYTE SEDIMENTATION RATE 71 mm/hr (0-20)
[2022-12-22] MEDS ORDERED: ACETAMINOPHEN 1000 MG/100 ML BAG IVPB ONE (15:55)
[2022-12-22] MEDS ORDERED: ACETAMINOPHEN INJECTION 100 ML IVPB ONE (16:07)
[2022-12-22] MEDS ORDERED: INSULIN (NOVOLOG) ASPART 100 UNITS/ML 10ML VIAL SQ ONE (17:20)
[2022-12-22] MEDS ORDERED: amLODIPine BESYLATE 5 MG TABLET (FP) PO ONE (17:45)
[2022-12-22] MEDS ORDERED: amLODIPine BESYLATE 5 MG TABLET (FP) ONE (18:44)
[2022-12-22] MEDS ORDERED: INSULIN (NOVOLOG) ASPART 100 UNITS/ML 10ML VIAL ONE (21:49)
[2022-12-22] MEDS: PIPERACILLIN/TAZOB 3.375 GM 3.375 GM in DEXTROSE 5%-WATER - 50 ML IVPB SCH (21:52)
[2022-12-22] MEDS: INSULIN SLIDING SCALE (NOVOLOG) 1 VIAL SQ SCH (21:52)
[2022-12-22] MEDS: HEPARIN NA (PORCINE) 5,000 UNITS/ML 1ML VIAL SQ SCH (21:52)
[2022-12-23] MEDS: PIPERACILLIN/TAZOB 3.375 GM 3.375 GM in DEXTROSE 5%-WATER - 50 ML IVPB SCH ×4 (03:12→14:01)
[2022-12-23] MEDS: INSULIN SLIDING SCALE (NOVOLOG) 1 VIAL SQ SCH ×4 (06:10→21:36)
[2022-12-23] MEDS: HEPARIN NA (PORCINE) 5,000 UNITS/ML 1ML VIAL SQ SCH ×3 (06:10→21:36)
[2022-12-23 08:18] LABS: BASO % 0.7 % (0-2.0); EOS % 5.6 % (0-4.5); HEMATOCRIT 31.4 % (35.4-49); HEMOGLOBIN 10.8 GM/dL (11.7-16.9); MCH 27.6 pg (25.7-33.7); MCHC 34.4 g/dl (32.0-35.9); MEAN CELL VOLUME 80.2 fl (80-96); MONO % 7.1 % (3.8-10.2); NEUT % 63.6 % (42.8-82.8); PLATELET COUNT 328 10^3/uL (134-434); RBC 3.92 M/mm3 (4.00-5.60); RDW 12.8 % (11.9-15.9); WHITE BLOOD COUNT 5.1 K/mm3 (4.0-10.0)
[2022-12-23 08:35] LABS: POTASSIUM 4.1 mmol/L (3.5-5.1)
[2022-12-23 08:38] LABS: ALBUMIN 2.8 g/dl (3.4-5.0); CALCIUM 8.2 mg/dL (8.5-10.1)
[2022-12-23 08:39] LABS: BLOOD UREA NITROGEN 13.3 mg/dL (7-18); MAGNESIUM 2.1 mg/dL (1.8-2.4)
[2022-12-23 08:42] LABS: CREATININE 1.2 mg/dL (0.55-1.3); PHOSPHOROUS 2.4 mg/dL (2.5-4.9)
[2022-12-23 08:43] LABS: BILIRUBIN,TOTAL 0.9 mg/dL (0.2-1); CHOLESTEROL 197 mg/dL (50-200)
[2022-12-23 08:44] LABS: LDL CHOLESTEROL (ONLY SJRH) 135 mg/dL (5-100)
[2022-12-23 08:46] LABS: HDL CHOLESTEROL 34 mg/dL (40-60)
[2022-12-23] MEDS ORDERED: VANCOMYCIN 1 GM in D5W (PRE-DOCKED) 1,000 MG/250 ML (RESTRICTED TO ID ONLY IVPB SCH (10:00)
[2022-12-23] MEDS ORDERED: INSULIN (NOVOLOG) ASPART 100 UNITS/ML 10ML VIAL ONE ×2 (11:06→21:02)
[2022-12-23] MEDS: VANCOMYCIN/WATER 1250 MG 1,250 MG/250 ML BAG IVPB SCH (13:46)
[2022-12-23] MEDS: COLLAGENASE CLOSTRIDIUM HIST. 30 GRAMS TUBE TP SCH (13:46)
[2022-12-23] MEDS ORDERED: NAPH,MB-DB/K PH,MBDB POWDER PACKET PO ONE (14:24)
[2022-12-23] MEDS: PIPERACILLIN/TAZOB 4.5 GM 4.5 GM in DEXTROSE 5%-WATER 100 ML IVPB SCH ×2 (15:06→21:35)
[2022-12-24] MEDS: INSULIN (LEVEMIR) 100 UNITS/ML UNITS SQ SCH ×3 (01:41→22:38)
[2022-12-24] MEDS: VANCOMYCIN/WATER 1250 MG 1,250 MG/250 ML BAG IVPB SCH ×2 (01:42→14:13)
[2022-12-24] MEDS: PIPERACILLIN/TAZOB 4.5 GM 4.5 GM in DEXTROSE 5%-WATER 100 ML IVPB SCH ×4 (03:16→21:02)
[2022-12-24] MEDS: INSULIN SLIDING SCALE (NOVOLOG) 1 VIAL SQ SCH ×4 (06:07→22:50)
[2022-12-24] MEDS: HEPARIN NA (PORCINE) 5,000 UNITS/ML 1ML VIAL SQ SCH ×3 (06:07→22:46)
[2022-12-24] MEDS: COLLAGENASE CLOSTRIDIUM HIST. 30 GRAMS TUBE TP SCH (10:30)
[2022-12-24] MEDS ORDERED: INSULIN (NOVOLOG) ASPART 100 UNITS/ML 10ML VIAL ONE ×2 (12:37→17:31)
[2022-12-25] MEDS: VANCOMYCIN/WATER 1250 MG 1,250 MG/250 ML BAG IVPB SCH ×2 (02:30→16:25)
[2022-12-25] MEDS: PIPERACILLIN/TAZOB 4.5 GM 4.5 GM in DEXTROSE 5%-WATER 100 ML IVPB SCH ×4 (03:17→21:23)
[2022-12-25] MEDS: HEPARIN NA (PORCINE) 5,000 UNITS/ML 1ML VIAL SQ SCH ×3 (06:57→21:23)
[2022-12-25] MEDS: INSULIN SLIDING SCALE (NOVOLOG) 1 VIAL SQ SCH ×4 (06:58→21:29)
[2022-12-25 10:30] LABS: BASO % 0.6 % (0-2.0); HEMATOCRIT 32.1 % (35.4-49); HEMOGLOBIN 11.1 GM/dL (11.7-16.9); LYMPH % 18.8 % (8-40); MCH 27.5 pg (25.7-33.7); MCHC 34.4 g/dl (32.0-35.9); MEAN PLT VOLUME 7.9 fl (7.5-11.1); MONO % 7.3 % (3.8-10.2); NEUT % 67.3 % (42.8-82.8); PLATELET COUNT 344 10^3/uL (134-434); RBC 4.02 M/mm3 (4.00-5.60); RDW 13.3 % (11.9-15.9); WHITE BLOOD COUNT 5.2 K/mm3 (4.0-10.0)
[2022-12-25] MEDS: INSULIN (LEVEMIR) 100 UNITS/ML UNITS SQ SCH ×2 (10:36→21:25)
[2022-12-25] MEDS: COLLAGENASE CLOSTRIDIUM HIST. 30 GRAMS TUBE TP SCH (10:37)
[2022-12-25 11:22] LABS: CALCIUM 8.7 mg/dL (8.5-10.1)
[2022-12-25 11:23] LABS: BLOOD UREA NITROGEN 10.9 mg/dL (7-18); MAGNESIUM 2.1 mg/dL (1.8-2.4)
[2022-12-25 11:26] LABS: CREATININE 1.2 mg/dL (0.55-1.3); PHOSPHOROUS 2.9 mg/dL (2.5-4.9)
[2022-12-25] MEDS ORDERED: INSULIN (LEVEMIR) 100 UNITS/ML UNITS SQ ONE (12:13)
[2022-12-25] MEDS: ATORVASTATIN CA 40 MG TABLET (FP) PO SCH (21:25)
[2022-12-25 22:28] LABS: PH,URINE 5.5 (5.0-8.0); URINE APPEARANCE CLEAR; URINE BILIRUBIN NEGATIVE (NEGATIVE); URINE COLOR YELLOW; URINE GLUCOSE (UA) TRACE (NEGATIVE); URINE KETONE NEGATIVE (NEGATIVE); URINE LEUK ESTERASE NEGATIVE (NEGATIVE); URINE NITRITE NEGATIVE (NEGATIVE); URINE PROTEIN NEGATIVE (NEGATIVE); URINE UROBILINOGEN 0.2 mg/dL (0.2-1.0)
[2022-12-25] MEDS ORDERED: INSULIN (LEVEMIR) 100 UNITS/ML UNITS SQ SCH (23:42)
[2022-12-26] MEDS: VANCOMYCIN/WATER 1250 MG 1,250 MG/250 ML BAG IVPB SCH ×2 (01:45→13:37)
[2022-12-26] MEDS: PIPERACILLIN/TAZOB 4.5 GM 4.5 GM in DEXTROSE 5%-WATER 100 ML IVPB SCH ×4 (02:33→21:35)
[2022-12-26] MEDS: HEPARIN NA (PORCINE) 5,000 UNITS/ML 1ML VIAL SQ SCH ×3 (06:04→21:36)
[2022-12-26] MEDS: INSULIN (LEVEMIR) 100 UNITS/ML UNITS SQ SCH ×2 (06:04→21:37)
[2022-12-26] MEDS: INSULIN SLIDING SCALE (NOVOLOG) 1 VIAL SQ SCH ×4 (06:05→21:37)
[2022-12-26] MEDS: HYDROCHLOROTHIAZIDE 12.5 MG CAPSULE (FP) PO SCH (09:55)
[2022-12-26] MEDS: LISINOPRIL 10 MG TABLET PO SCH (09:55)
[2022-12-26] MEDS: COLLAGENASE CLOSTRIDIUM HIST. 30 GRAMS TUBE TP SCH (11:51)
[2022-12-26] MEDS ORDERED: INSULIN (NOVOLOG) ASPART 100 UNITS/ML 10ML VIAL ONE (16:41)
[2022-12-26] MEDS: ATORVASTATIN CA 40 MG TABLET (FP) PO SCH (21:36)
[2022-12-27] MEDS: VANCOMYCIN/WATER 1250 MG 1,250 MG/250 ML BAG IVPB SCH ×2 (01:48→14:01)
[2022-12-27] MEDS: PIPERACILLIN/TAZOB 4.5 GM 4.5 GM in DEXTROSE 5%-WATER 100 ML IVPB SCH ×4 (02:53→22:25)
[2022-12-27] MEDS: INSULIN (LEVEMIR) 100 UNITS/ML UNITS SQ SCH ×2 (06:24→22:25)
[2022-12-27] MEDS: HEPARIN NA (PORCINE) 5,000 UNITS/ML 1ML VIAL SQ SCH (06:25)
[2022-12-27] MEDS: INSULIN SLIDING SCALE (NOVOLOG) 1 VIAL SQ SCH ×4 (06:25→22:25)
[2022-12-27 07:04] LABS: BASO % 0.7 % (0-2.0); EOS % 4.7 % (0-4.5); HEMATOCRIT 33.6 % (35.4-49); HEMOGLOBIN 11.6 GM/dL (11.7-16.9); LYMPH % 23.7 % (8-40); MCHC 34.7 g/dl (32.0-35.9); MEAN CELL VOLUME 80.7 fl (80-96); MEAN PLT VOLUME 7.9 fl (7.5-11.1); MONO % 7.2 % (3.8-10.2); NEUT % 63.7 % (42.8-82.8); PLATELET COUNT 341 10^3/uL (134-434); RBC 4.16 M/mm3 (4.00-5.60); RDW 13.2 % (11.9-15.9); WHITE BLOOD COUNT 5.3 K/mm3 (4.0-10.0)
[2022-12-27 07:29] LABS: BLOOD UREA NITROGEN 11.8 mg/dL (7-18); MAGNESIUM 1.8 mg/dL (1.8-2.4)
[2022-12-27 07:33] LABS: CREATININE 1.2 mg/dL (0.55-1.3); PHOSPHOROUS 3.3 mg/dL (2.5-4.9)
[2022-12-27] MEDS: HYDROCHLOROTHIAZIDE 12.5 MG CAPSULE (FP) PO SCH (09:01)
[2022-12-27] MEDS: LISINOPRIL 10 MG TABLET PO SCH (09:01)
[2022-12-27] MEDS: COLLAGENASE CLOSTRIDIUM HIST. 30 GRAMS TUBE TP SCH (13:13)
[2022-12-27 14:49] VITALS: BMI 40.2
[2022-12-27] MEDS ORDERED: INSULIN (NOVOLOG) ASPART 100 UNITS/ML 10ML VIAL ONE (21:35)
[2022-12-27] MEDS: ATORVASTATIN CA 40 MG TABLET (FP) PO SCH (22:25)
[2022-12-28] MEDS ORDERED: BUPIVACAINE HCL/PF 0.5% (5MG/ML) 10 ML VIAL IJ ONE
[2022-12-28] MEDS ORDERED: LIDOCAINE 1% P/F 10 MG/ML VIAL INF ONE
[2022-12-28] MEDS: VANCOMYCIN/WATER 1250 MG 1,250 MG/250 ML BAG IVPB SCH ×3 (00:59→15:44)
[2022-12-28] MEDS: PIPERACILLIN/TAZOB 4.5 GM 4.5 GM in DEXTROSE 5%-WATER 100 ML IVPB SCH ×4 (03:12→21:17)
[2022-12-28] MEDS: INSULIN (LEVEMIR) 100 UNITS/ML UNITS SQ SCH ×2 (06:25→21:18)
[2022-12-28] MEDS: INSULIN SLIDING SCALE (NOVOLOG) 1 VIAL SQ SCH ×4 (06:26→21:20)
[2022-12-28] MEDS ORDERED: INSULIN (NOVOLOG) ASPART 100 UNITS/ML 10ML VIAL ONE ×6 (06:40→21:10)
[2022-12-28 07:15] LABS: BASO % 0.8 % (0-2.0); EOS % 3.7 % (0-4.5); HEMATOCRIT 33.1 % (35.4-49); HEMOGLOBIN 11.6 GM/dL (11.7-16.9); LYMPH % 23.6 % (8-40); MCH 28.1 pg (25.7-33.7); MEAN CELL VOLUME 80.3 fl (80-96); MONO % 6.4 % (3.8-10.2); NEUT % 65.5 % (42.8-82.8); PLATELET COUNT 355 10^3/uL (134-434); RBC 4.12 M/mm3 (4.00-5.60); RDW 13.1 % (11.9-15.9); WHITE BLOOD COUNT 6.3 K/mm3 (4.0-10.0)
[2022-12-28 07:18] LABS: INR 1.16 (0.83-1.09); PROTHROMBIN TIME (PATIENT) 13.4 SEC (9.7-13.0)
[2022-12-28 07:29] LABS: POTASSIUM 3.9 mmol/L (3.5-5.1)
[2022-12-28 07:34] LABS: BLOOD UREA NITROGEN 13.8 mg/dL (7-18); CALCIUM 9.1 mg/dL (8.5-10.1); MAGNESIUM 1.9 mg/dL (1.8-2.4)
[2022-12-28 07:38] LABS: CREATININE 1.3 mg/dL (0.55-1.3)
[2022-12-28] MEDS ORDERED: SODIUM CHLORIDE 1,000 ML IV SCH (08:00)
[2022-12-28] MEDS: COLLAGENASE CLOSTRIDIUM HIST. 30 GRAMS TUBE TP SCH (09:16)
[2022-12-28] MEDS: HYDROCHLOROTHIAZIDE 12.5 MG CAPSULE (FP) PO SCH (11:15)
[2022-12-28] MEDS: LISINOPRIL 10 MG TABLET PO SCH (11:15)
[2022-12-28] MEDS ORDERED: LIDOCAINE HCL 1%, 10 MG/ML (10ML VIAL) MDV ONE (11:40)
[2022-12-28] MEDS ORDERED: BUPIVACAINE HCL/PF 0.5% (5MG/ML) 10 ML VIAL ONE (11:42)
[2022-12-28] MEDS ORDERED: PROPOFOL 20 ML ONE (13:42)
[2022-12-28] MEDS ORDERED: MIDAZOLAM HCL 2 MG/2 ML SINGLE DOSE VIAL ONE (14:12)
[2022-12-28] MEDS: SODIUM CHLORIDE 1,000 ML IV SCH (15:35)
[2022-12-28] MEDS: ATORVASTATIN CA 40 MG TABLET (FP) PO SCH (21:18)
[2022-12-29] MEDS ORDERED: VANCOMYCIN/WATER 1250 MG 1,250 MG/250 ML BAG IVPB SCH (02:00)
[2022-12-29] MEDS: PIPERACILLIN/TAZOB 4.5 GM 4.5 GM in DEXTROSE 5%-WATER 100 ML IVPB SCH ×4 (03:25→21:45)
[2022-12-29] MEDS: VANCOMYCIN/WATER 1250 MG 1,250 MG/250 ML BAG IVPB SCH ×2 (03:58→15:14)
[2022-12-29] MEDS: INSULIN (LEVEMIR) 100 UNITS/ML UNITS SQ SCH ×2 (06:02→21:45)
[2022-12-29] MEDS: INSULIN SLIDING SCALE (NOVOLOG) 1 VIAL SQ SCH ×4 (07:35→21:46)
[2022-12-29] MEDS: LISINOPRIL 10 MG TABLET PO SCH (09:05)
[2022-12-29] MEDS: HYDROCHLOROTHIAZIDE 12.5 MG CAPSULE (FP) PO SCH (09:05)
[2022-12-29] MEDS: COLLAGENASE CLOSTRIDIUM HIST. 30 GRAMS TUBE TP SCH (12:37)
[2022-12-29] MEDS ORDERED: INSULIN (NOVOLOG) ASPART 100 UNITS/ML 10ML VIAL ONE ×2 (16:31→16:39)
[2022-12-29] MEDS: SODIUM CHLORIDE 1,000 ML IV SCH (16:52)
[2022-12-29] MEDS: ATORVASTATIN CA 40 MG TABLET (FP) PO SCH (21:46)
[2022-12-30] MEDS: PIPERACILLIN/TAZOB 4.5 GM 4.5 GM in DEXTROSE 5%-WATER 100 ML IVPB SCH ×4 (02:02→21:49)
[2022-12-30] MEDS: VANCOMYCIN/WATER 1250 MG 1,250 MG/250 ML BAG IVPB SCH ×2 (04:23→16:05)
[2022-12-30] MEDS: INSULIN SLIDING SCALE (NOVOLOG) 1 VIAL SQ SCH ×4 (06:05→21:50)
[2022-12-30] MEDS: INSULIN (LEVEMIR) 100 UNITS/ML UNITS SQ SCH ×2 (06:05→21:50)
[2022-12-30 06:33] VITALS: RESP 18
[2022-12-30] MEDS: HYDROCHLOROTHIAZIDE 12.5 MG CAPSULE (FP) PO SCH (09:10)
[2022-12-30] MEDS: LISINOPRIL 10 MG TABLET PO SCH (09:10)
[2022-12-30] MEDS: COLLAGENASE CLOSTRIDIUM HIST. 30 GRAMS TUBE TP SCH (09:11)
[2022-12-30] MEDS ORDERED: INSULIN (NOVOLOG) ASPART 100 UNITS/ML 10ML VIAL ONE ×5 (10:51→21:10)
[2022-12-30] MEDS: SODIUM CHLORIDE 1,000 ML IV SCH (16:05)
[2022-12-30] MEDS: ATORVASTATIN CA 40 MG TABLET (FP) PO SCH (21:50)
[2022-12-31] MEDS: PIPERACILLIN/TAZOB 4.5 GM 4.5 GM in DEXTROSE 5%-WATER 100 ML IVPB SCH ×4 (02:23→22:15)
[2022-12-31] MEDS: VANCOMYCIN/WATER 1250 MG 1,250 MG/250 ML BAG IVPB SCH ×2 (03:31→15:07)
[2022-12-31] MEDS: INSULIN SLIDING SCALE (NOVOLOG) 1 VIAL SQ SCH ×4 (06:26→22:22)
[2022-12-31] MEDS: INSULIN (LEVEMIR) 100 UNITS/ML UNITS SQ SCH ×2 (06:26→22:22)
[2022-12-31] MEDS: ENOXAPARIN NA (PORCINE) 40 MG/0.4 ML DISP.SYRIN SQ SCH (09:13)
[2022-12-31] MEDS: LISINOPRIL 10 MG TABLET PO SCH (09:13)
[2022-12-31] MEDS: HYDROCHLOROTHIAZIDE 12.5 MG CAPSULE (FP) PO SCH (09:13)
[2022-12-31] MEDS: COLLAGENASE CLOSTRIDIUM HIST. 30 GRAMS TUBE TP SCH (09:14)
[2022-12-31] MEDS ORDERED: INSULIN (NOVOLOG) ASPART 100 UNITS/ML 10ML VIAL ONE ×5 (11:01→21:54)
[2022-12-31] MEDS: SODIUM CHLORIDE 1,000 ML IV SCH (16:18)
[2022-12-31] MEDS: ATORVASTATIN CA 40 MG TABLET (FP) PO SCH (22:23)
[2023-01-01] MEDS: PIPERACILLIN/TAZOB 4.5 GM 4.5 GM in DEXTROSE 5%-WATER 100 ML IVPB SCH ×2 (02:32→08:15)
[2023-01-01] MEDS: VANCOMYCIN/WATER 1250 MG 1,250 MG/250 ML BAG IVPB SCH (03:28)
[2023-01-01] MEDS: INSULIN SLIDING SCALE (NOVOLOG) 1 VIAL SQ SCH ×3 (06:30→17:02)
[2023-01-01] MEDS: INSULIN (LEVEMIR) 100 UNITS/ML UNITS SQ SCH (06:33)
[2023-01-01 07:06] LABS: BASO % 0.5 % (0-2.0); EOS % 5.4 % (0-4.5); HEMATOCRIT 32.8 % (35.4-49); HEMOGLOBIN 11.1 GM/dL (11.7-16.9); LYMPH % 26.3 % (8-40); MCH 27.4 pg (25.7-33.7); MCHC 33.7 g/dl (32.0-35.9); MEAN CELL VOLUME 81.2 fl (80-96); MEAN PLT VOLUME 8.1 fl (7.5-11.1); MONO % 7.5 % (3.8-10.2); NEUT % 60.3 % (42.8-82.8); PLATELET COUNT 312 10^3/uL (134-434); RBC 4.04 M/mm3 (4.00-5.60); RDW 13.4 % (11.9-15.9); WHITE BLOOD COUNT 5.6 K/mm3 (4.0-10.0)
[2023-01-01 07:19] LABS: POTASSIUM 3.8 mmol/L (3.5-5.1)
[2023-01-01 07:25] LABS: BLOOD UREA NITROGEN 11.1 mg/dL (7-18); CALCIUM 8.8 mg/dL (8.5-10.1)
[2023-01-01 07:26] LABS: MAGNESIUM 1.8 mg/dL (1.8-2.4)
[2023-01-01 07:28] LABS: CREATININE 1.2 mg/dL (0.55-1.3)
[2023-01-01 08:52] VITALS: BP 110/66; PULSE 67; TEMP 98.1
[2023-01-01] MEDS: HYDROCHLOROTHIAZIDE 12.5 MG CAPSULE (FP) PO SCH (09:29)
[2023-01-01] MEDS: ENOXAPARIN NA (PORCINE) 40 MG/0.4 ML DISP.SYRIN SQ SCH (09:29)
[2023-01-01] MEDS: LISINOPRIL 10 MG TABLET PO SCH (09:29)
[2023-01-01] MEDS ORDERED: CEFTRIAXONE 2 GM in DEXTROSE 5%-WATER 100 ML IVPB SCH (10:30)
[2023-01-01] MEDS: COLLAGENASE CLOSTRIDIUM HIST. 30 GRAMS TUBE TP SCH (15:21)
== END 2023-01-01 17:00 | disposition home or self-care (01) | DRG 344 ==
LOC: JER 13:06 → JERBED 14:21 → J7W 20:16
PROVIDERS: ADMIT Internal Medicine; ATTEND Internal Medicine
PROC: 0QBP3ZX Excision of Left Metatarsal, Percutaneous Approach, Diagnostic (ICD-10-PCS; principal; 2022-12-28 14:00)
PROC: 02HV33Z Insertion of Infusion Device into Superior Vena Cava, Percutaneous Approach (ICD-10-PCS; 2023-01-01)
PROC: B548ZZA Ultrasonography of Superior Vena Cava, Guidance (ICD-10-PCS; 2023-01-01)
DX: E11.69 Type 2 diabetes mellitus with other specified complication (principal); M86.8X7 Other osteomyelitis, ankle and foot; E11.621 Type 2 diabetes mellitus with foot ulcer; N17.9 Acute kidney failure, unspecified; L03.116 Cellulitis of left lower limb; Z68.41 Body mass index [BMI] 40.0-44.9, adult; E11.628 Type 2 diabetes mellitus with other skin complications; E78.5 Hyperlipidemia, unspecified; I10 Essential (primary) hypertension; L03.90 Cellulitis, unspecified; L97.529 Non-pressure chronic ulcer of other part of left foot with unspecified severity; E11.65 Type 2 diabetes mellitus with hyperglycemia; E66.9 Obesity, unspecified
CPT/HCPCS: 36415; 36569; 73630-TC-LT; 73718-TC-LT; 77001-TC-FY; 80048; 80053; 80061; 81003; 82570; 82962; 83036; 83735; 84100; 84156; 85025; 85610; 85651; 86140; 87040; 87070; 87075; 87186; 87205; 93005; 93010; 93926-TC; 94760; 99285-25; C1751; C9803-CS; G0480; J1644; U0003; U0005

== ENCOUNTER 2023-12-03 20:52 | Inpatient (IN) | payer OTHER ==
[2023-12-03] MEDS ORDERED: ACETAMINOPHEN INJECTION 100 ML IVPB ONE (22:23)
[2023-12-03] MEDS: ACETAMINOPHEN 1000 MG/100 ML BAG IVPB ONE (22:51)
[2023-12-03 23:06] LABS: BASO % 0.4 % (0-2.0); EOS % 1.9 % (0-4.5); HEMATOCRIT 34.3 % (35.4-49); HEMOGLOBIN 11.5 GM/dL (11.7-16.9); LYMPH % 7.8 % (8-40); MCH 27.5 pg (25.7-33.7); MCHC 33.4 g/dl (32.0-35.9); MEAN CELL VOLUME 82.2 fl (80-96); MEAN PLT VOLUME 7.3 fl (7.5-11.1); MONO % 5.4 % (3.8-10.2); NEUT % 84.5 % (42.8-82.8); PLATELET COUNT 640 10^3/uL (134-434); RBC 4.17 M/mm3 (4.00-5.60); RDW 13.3 % (11.9-15.9); WHITE BLOOD COUNT 13.7 K/mm3 (4.0-10.0)
[2023-12-03] MEDS: CEFEPIME HCL 2 GM VIAL (RESTRICTED TO ID) IVPB ONE (23:09)
[2023-12-03 23:11] LABS: INR 1.26 (0.83-1.09); PROTHROMBIN TIME (PATIENT) 14.6 SEC (9.7-13.0)
[2023-12-03] MEDS ORDERED: CEFEPIME 2 GM/100 ML BAG IVPB ONE (23:11)
[2023-12-03 23:14] LABS: ACTIVATED PTT 37.9 SECONDS (25.2-36.5)
[2023-12-03 23:25] LABS: ALBUMIN 2.7 g/dl (3.4-5.0); CALCIUM 9.5 mg/dL (8.5-10.1)
[2023-12-03 23:26] LABS: BLOOD UREA NITROGEN 17.1 mg/dL (7-18)
[2023-12-03 23:28] LABS: CREATININE 1.6 mg/dL (0.55-1.3)
[2023-12-03 23:30] LABS: BILIRUBIN,TOTAL 0.8 mg/dL (0.2-1); TOT PROT 8.3 g/dl (6.4-8.2)
[2023-12-04] MEDS: VANCOMYCIN 1,000 MG in DEXTROSE 5%-WATER - 250 ML IVPB ONE (00:12)
[2023-12-04] MEDS ORDERED: VANCOMYCIN 1 GRAM (PRE-DOCKED) 1,000 MG/250 ML BAG IVPB ONE (00:15)
[2023-12-04] MEDS ORDERED: ACETAMINOPHEN 325 MG TABLET (FP) PO PRN (07:29)
[2023-12-04] MEDS ORDERED: PIPERACILLIN/TAZOB 4.5 GM 4.5 GM/100 ML BAG IVPB ONE (08:18)
[2023-12-04] MEDS ORDERED: INSULIN (NOVOLOG) ASPART 100 UNITS/ML 10ML VIAL ONE ×2 (08:18→16:49)
[2023-12-04] MEDS ORDERED: LISINOPRIL 10 MG TABLET ONE (08:33)
[2023-12-04] MEDS: INSULIN ASPART SLIDING SCALE (NOVOLOG) 1 VIAL SQ SCH (08:44)
[2023-12-04] MEDS: PIPERACILLIN/TAZOB 4.5 GM 4.5 GM in DEXTROSE 5%-WATER 100 ML IVPB SCH (08:45)
[2023-12-04 08:55] LABS: EPI CELLS >36 /uL (0-25.1); HYALINE CASTS 25 /uL (0-3.1); URINE APPEARANCE CLOUDY; URINE BACTERIA 13 /uL (0-1359); URINE BILIRUBIN NEGATIVE (NEGATIVE); URINE COLOR DK YELLOW; URINE GLUCOSE (UA) 2+ (NEGATIVE); URINE KETONE TRACE (NEGATIVE); URINE LEUK ESTERASE NEGATIVE (NEGATIVE); URINE NITRITE NEGATIVE (NEGATIVE); URINE PROTEIN 2+ (NEGATIVE); URINE RBC 11 /uL (0-23.9); URINE UROBILINOGEN 0.2 mg/dL (0.2-1.0)
[2023-12-04 09:05] LABS: CALCIUM 8.7 mg/dL (8.5-10.1); CREATININE 1.5 mg/dL (0.55-1.3); POTASSIUM 4.2 mmol/L (3.5-5.1)
[2023-12-04] MEDS: LISINOPRIL 10 MG TABLET PO SCH (09:24)
[2023-12-04 09:26] LABS: BASO % 0.5 % (0-2.0); EOS % 2.5 % (0-4.5); HEMATOCRIT 29.8 % (35.4-49); LYMPH % 11.1 % (8-40); MCH 27.6 pg (25.7-33.7); MCHC 33.6 g/dl (32.0-35.9); MEAN CELL VOLUME 82.2 fl (80-96); MEAN PLT VOLUME 7.7 fl (7.5-11.1); NEUT % 78.9 % (42.8-82.8); PLATELET COUNT 521 10^3/uL (134-434); RBC 3.62 M/mm3 (4.00-5.60); RDW 13.5 % (11.9-15.9); WHITE BLOOD COUNT 10.2 K/mm3 (4.0-10.0)
[2023-12-04 09:35] LABS: BLOOD UREA NITROGEN 18.3 mg/dL (7-18)
[2023-12-04] MEDS: VANCOMYCIN/WATER 1250 MG 1,250 MG/250 ML BAG IVPB SCH (12:39)
[2023-12-04 13:12] LABS: URINE WBC 80.7 /uL (0-25.8)
[2023-12-04 13:18] VITALS: BMI 39.9
[2023-12-04] MEDS: SODIUM CHLORIDE 0.45% 1,000 ML IV SCH (16:40)
[2023-12-04] MEDS: HYDROCHLOROTHIAZIDE 12.5 MG CAPSULE (FP) PO SCH (22:39)
[2023-12-04] MEDS: ATORVASTATIN CA 40 MG TABLET (FP) PO SCH (22:40)
[2023-12-05] MEDS: VANCOMYCIN/WATER 1250 MG 1,250 MG/250 ML BAG IVPB SCH (07:46)
[2023-12-05 08:52] LABS: BASO % 0.7 % (0-2.0); EOS % 5.9 % (0-4.5); HEMATOCRIT 33.6 % (35.4-49); HEMOGLOBIN 10.7 GM/dL (11.7-16.9); LYMPH % 10.3 % (8-40); MCH 26.8 pg (25.7-33.7); MCHC 31.9 g/dl (32.0-35.9); MEAN CELL VOLUME 83.8 fl (80-96); MEAN PLT VOLUME 7.3 fl (7.5-11.1); MONO % 6.7 % (3.8-10.2); NEUT % 76.4 % (42.8-82.8); PLATELET COUNT 541 10^3/uL (134-434); RBC 4.01 M/mm3 (4.00-5.60); RDW 13.3 % (11.9-15.9); WHITE BLOOD COUNT 7.5 K/mm3 (4.0-10.0)
[2023-12-05 09:09] LABS: POTASSIUM 4.3 mmol/L (3.5-5.1)
[2023-12-05 09:14] LABS: ALBUMIN 2.2 g/dl (3.4-5.0)
[2023-12-05 09:16] LABS: CALCIUM 9.1 mg/dL (8.5-10.1)
[2023-12-05 09:17] LABS: CREATININE 1.6 mg/dL (0.55-1.3)
[2023-12-05 09:18] LABS: BILIRUBIN,TOTAL 0.8 mg/dL (0.2-1); TOT PROT 7.2 g/dl (6.4-8.2)
[2023-12-05 09:20] LABS: BLOOD UREA NITROGEN 15.6 mg/dL (7-18)
[2023-12-05] MEDS ORDERED: INSULIN (NOVOLOG) ASPART 100 UNITS/ML 10ML VIAL ONE (11:53)
[2023-12-05] MEDS: PIPERACILLIN/TAZOB 2.25 GM 2.25 GM in DEXTROSE 5%-WATER 100 ML IVPB SCH (11:57)
[2023-12-05] MEDS: PIPERACILLIN/TAZOB 4.5 GM 4.5 GM in DEXTROSE 5%-WATER 100 ML IVPB SCH (12:02)
[2023-12-06 07:22] VITALS: RESP 18
[2023-12-06] MEDS ORDERED: INSULIN (NOVOLOG) ASPART 100 UNITS/ML 10ML VIAL ONE ×3 (10:55→21:02)
[2023-12-06 11:03] LABS: POTASSIUM 4.8 mmol/L (3.5-5.1)
[2023-12-06 11:05] LABS: BLOOD UREA NITROGEN 14.8 mg/dL (7-18)
[2023-12-06 11:08] LABS: CREATININE 1.3 mg/dL (0.55-1.3)
[2023-12-07] MEDS: INSULIN (LEVEMIR) 100 UNITS/ML UNITS SQ SCH (06:24)
[2023-12-07 08:12] VITALS: TEMP 98.2
[2023-12-07] MEDS ORDERED: INSULIN (NOVOLOG) ASPART 100 UNITS/ML 10ML VIAL ONE ×3 (11:38→17:24)
[2023-12-07 15:05] VITALS: BP 118/68; PULSE 80
== END 2023-12-07 19:15 | disposition home or self-care (01) | DRG 344 ==
LOC: JER 20:52 → JERBED 12-04 00:22 → J7W 12-04 11:22
PROVIDERS: ADMIT Internal Medicine; ATTEND Family Medicine
PROC: 05HY33Z Insertion of Infusion Device into Upper Vein, Percutaneous Approach (ICD-10-PCS; principal; 2023-12-07)
DX: E11.69 Type 2 diabetes mellitus with other specified complication (principal); M86.9 Osteomyelitis, unspecified; E11.621 Type 2 diabetes mellitus with foot ulcer; E11.40 Type 2 diabetes mellitus with diabetic neuropathy, unspecified; E11.65 Type 2 diabetes mellitus with hyperglycemia; E78.5 Hyperlipidemia, unspecified; I10 Essential (primary) hypertension; L03.032 Cellulitis of left toe; N18.9 Chronic kidney disease, unspecified; E66.9 Obesity, unspecified; Z68.39 Body mass index [BMI] 39.0-39.9, adult
CPT/HCPCS: 36415; 36569; 71045-TC-FY; 73610-TC-LT-FY; 73630-TC-LT; 73718-TC-LT; 80048; 80053; 81003; 82962; 83036; 85025; 85610; 85730; 86850; 86900; 86901; 87040; 87070; 87086; 87186; 87205; 88304-TC; 93005; 93010; 99285-25; J0131